=== PATIENT | female | born 1985 | race Caucasian/White ===

== ENCOUNTER → 2023-03-24 | Outpatient (CLI) | payer MEDICAID, SELFPAY ==
--- OUTSIDE RECORDS SUMMARY | 2023-03-24 07:01 | XMS RPT_ITS | CCD ---
Author Name Unknown Address [address] [place] [address] Organization [facility] Care Team Providers Care Senior Interactive Developer Name Role Phone IMCA Unavailable Unavailable JAMESON HEADSTART TEACHER-FAX MACHINE REPAIRER, PEYTON Goel Primary Care Physicia n Jameson PETERSENN - GO GO DANCER, Peyton Primary Care Provider Jameson PETERSENN - GO GO DANCER, Peyton Primary Care Provider Peyton Barba Primary Care Unavailable PROVIDER, UNKNOWN Referring Unavailable Pozsgay, Saman Attending Unavailable Pozsgay, Saman Attending Unavailable Pozsgay, Saman Referring Unavailable Peyton Barba Primary Care Unavailable PROVIDER, UNKNOWN Referring Unavailable ADDY HIRSCH Attending Unavailable Peyton Barba Primary Care Unavailable PROVIDER, UNKNOWN Referring Unavailable ADDY HIRSCH Attending Unavailable Peyton Barba Primary Care Unavailable PROVIDER, UNKNOWN Referring Unavailable ADDY HIRSCH Attending Unavailable ADDY HIRSCH Attending Unavailable PROVIDER, UNKNOWN Referring Unavailable Peyton Barba Primary Care Provider [phone] Maritza Flaherty RN Unavailable Unavailab le Pozsgay DO, Saman Unavailable Peyton Barba Primary Care Provider Maritza Flaherty RN Unavailable Unavailab le Pozsgay DO, Saman Unavailable POZSGAY, SAMAN Attending Unavailable PEYTON BARBA Primary Care Unavailable ADDY HIRSCH Attending Unavailable PEYTON BARBA Primary Care Unavailable POZSGAY, SAMAN Attending Unavailable PEYTON BARBA Primary Care Unavailable SANDIE MONDRAGON Attending Unavailable AYAKA KIRBY Attending Unavailable PEYTON BARBA Primary Care Unavailable POZSGAY, SAMAN Admitting Unavailable POZSGAY, SAMAN Attending Unavailable PEYTON BARBA Primary Care Unavailable HASSINGER, AYAKA Attending Unavailable JAMESON, PEYTON Primary Care Unavailable HASSINGER, AYAKA Attending Unavailable JAMESON, PEYTON Primary Care Unavailable JOYCELYN, ADDY Attending Unavailable JAMESON, PEYTON Primary Care Unavailable JAMESON, PEYTON Attending Unavailable JAMESON, PEYTON Referring Unavailable JAMESON, PEYTON Primary Care Unavailable BRIDLE, JUAN Attending Unavailable BRIDLE, JUAN Referring Unavailable JAMESON, PEYTON Primary Care Unavailable POZSGAY, SAMAN Referring Unavailable JAMESON, PEYTON Primary Care Unavailable EMPERATRIZ BECKETT Referring Unavailable JAMESON, PEYTON Primary Care Unavailable ALANNA, SANDIE Attending Unavailable ALANNA, SANDIE Referring Unavailable JOYCELYN, ADDY Attending Unavailable JOYCELYN, ADDY Attending Unavailable POZSGAY, SAMAN Attending Unavailable JAMESON, PEYTON Primary Care Unavailable BRIDLE, JUAN Attending Unavailable JAMESON, PEYTON Primary Care Unavailable OVI, FRANCHESKA Admitting Unavailable JAMESON HEADSTART TEACHER-FAX MACHINE REPAIRER, PEYTON D Primary Care Unava ilable JULIETA GONZALEZ, WINNIE Consulting Unavailable MORALES GONZALEZ, FRANK Attending Unavailable HUMBERTO GONZALEZ, ATIYA Consulting Unavailable MARIA ELENA HARE MD Consulting U navailable PEYTON BARBA FAX MACHINE REPAIRER Consulting Unavailable BRIDLE, JUAN R Admitting Unavailable BRIDLE, JUAN R Primary Care Unavailable BRIDLE, JUAN R Attending Unavailable PROVIDER, UNKNOWN Consulting Unavailable PROVIDER, UNKNOWN Consulting Unavailable PEYTON BARBA FAX MACHINE REPAIRER Consulting Unavailable CALDERA, ALEXEI Primary Care Unavailable CALDERA, ALEXEI Admitting Unavailable CALDERA, ALEXEI Attending Unavailable PROVIDER, UNKNOWN Consulting Unavailable PROVIDER, UNKNOWN Consulting Unavailable JAMESONPEYTON MORGAN FAX MACHINE REPAIRER Consulting Unavailable CALDERA, ALEXEI Primary Care Unavailable CALDERA, ALEXEI Admitting Unavailable CALDERA, ALEXEI Attending Unavailable PROVIDER, UNKNOWN Consulting Unavailable PROVIDER, UNKNOWN Consulting Unavailable JAMESONPEYTON MORGAN FAX MACHINE REPAIRER Consulting Unavailable PEYTON BARBA FAX MACHINE REPAIRER Primary Care Unavailable JAMESONPEYTON MORGAN FAX MACHINE REPAIRER Admitting Unavailable PEYTON BARBA FAX MACHINE REPAIRER Attending Unavailable PROVIDER, UNKNOWN Consulting Unavailable PROVIDER, UNKNOWN Consulting Unavailable JAMESONPEYTON MORGAN FAX MACHINE REPAIRER Consulting Unavailable JAMESONPEYTON MORGAN FAX MACHINE REPAIRER Primary Care Unavailable JAMESONPEYTON MORGAN FAX MACHINE REPAIRER Admitting Unavailable JAMESONPEYTON MORGAN FAX MACHINE REPAIRER Attending Unavailable PROVIDER, UNKNOWN Consulting Unavailable PROVIDER, UNKNOWN Consulting Unavailable JAMESONPEYTON MORGAN FAX MACHINE REPAIRER Consulting Unavailable BRIDLE, JUAN R Admitting Unavailable BRIDLE, JUAN R Attending Unavailable BRIDLE, JUAN R Primary Care Unavailable PROVIDER, UNKNOWN Consulting Unavailable PROVIDER, UNKNOWN Consulting Unavailable PEYTON BARBA FAX MACHINE REPAIRER Consulting Unavailable CALDERA, ALEXEI Primary Care Unavailable CALDERA, ALEXEI Admitting Unavailable CALDERA, ALEXEI Attending Unavailable PROVIDER, UNKNOWN Consulting Unavailable PROVIDER, UNKNOWN Consulting Unavailable JAMESONPEYTON MORGAN FAX MACHINE REPAIRER Consulting Unavailable CALDERA, ALEXEI Primary Care Unavailable CALDERA, ALEXEI Admitting Unavailable CALDERA, ALEXEI Attending Unavailable PROVIDER, UNKNOWN Consulting Unavailable PROVIDER, UNKNOWN Consulting Unavailable PEYTON BARBA CNP Consulting Unavailable BETO, SHAMA DO Admitting Unavailable BETO, SHAMA DO Attending Unavailable PEYTON BARBA FAX MACHINE REPAIRER Referring Unavailable BETOSHAMA RICHARDS DO Primary Care Unavailable PROVIDER, UNKNOWN Consulting Unavailable PROVIDER, UNKNOWN Consulting Unavailable JAMESONPEYTON MORGAN CNP Primary Care Unavailable JAMESONPEYTON MORGAN CNP Consulting Unavailable PEYTON BARBA CNP Attending Unavailable JAMESON, PEYTON DOUGHERTY Admitting Unavailable PROVIDER, UNKNOWN Consulting Unavailable PROVIDER, UNKNOWN Consulting Unavailable PEYTON BARBA CNP Consulting Unavailable PEYTON BARBA CNP Primary Care Unavailable JAMESON, PEYTON DOUGHERTY Admitting Unavailable PEYTON BARBA CNP Attending Unavailable PROVIDER, UNKNOWN Consulting Unavailable PROVIDER, UNKNOWN Consulting Unavailable PEYTON BARBA CNP Consulting Unavailable CALDERA, ALEXEI Primary Care Unavailable CALDERA, ALEXEI Admitting Unavailable CALDERA, ALEXEI Attending Unavailable PROVIDER, UNKNOWN Consulting Unavailable PROVIDER, UNKNOWN Consulting Unavailable JAMESONPEYTON MORGAN CNP Consulting Unavailable VELEZ, CARLOTTA Admitting Unavailable VELEZ, CARLOTTA Attending Unavailable VELEZ, CARLOTTA Primary Care Unavailable PROVIDER, UNKNOWN Consulting Unavailable PROVIDER, UNKNOWN Consulting Unavailable PEYTON BARBA CNP Consulting Unavailable POZSGAY, SAMAN DO Admitting Unavailable POZSGAY, SAMAN DO Attending Unavailable POZSGAY, SAMAN DO Primary Care Unavailable PROVIDER, UNKNOWN Consulting Unavailable PROVIDER, UNKNOWN Consulting Unavailable PEYTON BARBA CNP Attending Unavailable PEYTON BARBA CNP Primary Care Unavailable JAMESONPEYTON MORGAN CNP Admitting Unavailable PEYTON BARBA CNP Consulting Unavailable PROVIDER, UNKNOWN Consulting Unavailable PROVIDER, UNKNOWN Consulting Unavailable PEYTON BARBA CNP Primary Care Unavailable PEYTON BARBA CNP Admitting Unavailable PEYTON BARBA CNP Consulting Unavailable PEYTON BARBA CNP Attending Unavailable PROVIDER, UNKNOWN Consulting Unavailable PROVIDER, UNKNOWN Consulting Unavailable PEYTON BARBA CNP Primary Care Unavailable PEYTON BARBA CNP Consulting Unavailable PEYTON BARBA CNP Attending Unavailable PEYTON BARBA CNP Admitting Unavailable PROVIDER, UNKNOWN Consulting Unavailable PROVIDER, UNKNOWN Consulting Unavailable JAMESONPEYTON MORGAN CNP Primary Care Unavailable JAMESONPEYTON MORGAN CNP Admitting Unavailable PEYTON BARBA CNP Consulting Unavailable PEYTON BARBA CNP Attending Unavailable PROVIDER, UNKNOWN Consulting Unavailable PROVIDER, UNKNOWN Consulting Unavailable PEYTON BARBA CNP Consulting Unavailable BRIDLE, JUAN R Admitting Unavailable BRIDLE, JUAN R Primary Care Unavailable BRIDLE, JUAN R Attending Unavailable PROVIDER, UNKNOWN Consulting Unavailable PROVIDER, UNKNOWN Consulting Unavailable PEYTON BARBA CNP Consulting Unavailable CALDERA, ALEXEI Primary Care Unavailable CALDERA, ALEXEI Admitting Unavailable CALDERA, ALEXEI Attending Unavailable PROVIDER, UNKNOWN Consulting Unavailable PROVIDER, UNKNOWN Consulting Unavailable PEYTON BARBA CNP Primary Care Unavailable PEYTON BARBA CNP Consulting Unavailable PEYTON BARBA CNP Attending Unavailable PEYTON BARBA CNP Admitting Unavailable PROVIDER, UNKNOWN Consulting Unavailable PROVIDER, UNKNOWN Consulting Unavailable PEYTON BARBA CNP Consulting Unavailable SAMAYOA, LAZARO C Attending Unavailable SAMAYOA, LAZARO C Admitting Unavailable SAMAYOA, LAZARO C Primary Care Unavailable PROVIDER, UNKNOWN Consulting Unavailable PROVIDER, UNKNOWN Consulting Unavailable PEYTON BARBA CNP Consulting Unavailable DEE, ELAINE DO Primary Care Unavailable DEE, ELAINE DO Admitting Unavailable DEE, ELAINE DO Attending Unavailable PEYTON BARBA CNP Referring Unavailable PROVIDER, UNKNOWN Consulting Unavailable PROVIDER, UNKNOWN Consulting Unavailable PEYTON BARBA CNP Primary Care Unavailable PEYTON BARBA CNP Attending Unavailable PEYTON BARBA CNP Admitting Unavailable PEYTON BARBA CNP Consulting Unavailable PROVIDER, UNKNOWN Consulting Unavailable PROVIDER, UNKNOWN Consulting Unavailable PEYTON BARBA CNP Consulting Unavailable DEE, ELAINE DO Admitting Unavailable DEE, ELAINE DO Attending Unavailable DEE, ELAINE DO Primary Care Unavailable PROVIDER, UNKNOWN Consulting Unavailable PROVIDER, UNKNOWN Consulting Unavailable PEYTON BARBA CNP Consulting Unavailable BRIDLE, JUAN R Admitting Unavailable BRIDLE, JUAN R Primary Care Unavailable BRIDLE, JUAN R Attending Unavailable PROVIDER, UNKNOWN Consulting Unavailable PROVIDER, UNKNOWN Consulting Unavailable Allergies Allergy Classification Reported Allergen(s) Allergy Type Date of Onset Reaction(s) Facility (18 sources) acetaminophen / codeine; Translations: [ACETAMINOPHEN-CO DEINE] Drug Allergy 11-10-19 14 Hives, Rash, Swelling [facility] Repository (13 sources) Codeine; Translations: [codeine] Drug Allergy 01-07-20 22 Other, Nausea And Vomiting [facility] (3 sources) [place]; Translations: [STRAWBERRIES] Drug allergy [facility] (3 sources) Acetaminophen Drug Allergy 10-07-19 22 Anaphylaxis, Shortness Of Breath [facility] Work Phone: (3 sources) Ketorolac Drug Allergy 10-07-19 22 Anaphylaxis, Shortness Of Breath [facility] Work Phone: (17 sources) Morphine Drug Allergy 10-07-19 22 Other (See Comments), Other [facility] Work Phone: (3 sources) strawberry allergenic extract Drug Allergy 10-07-19 22 Hives, Shortness Of Breath [facility] Work Phone: (17 sources) Coconut Flavor Propensity to adverse reactions to drug 10-07-19 22 Shortness Of Breath [facility] (8 sources) Acetaminophen Drug Allergy 10-07-19 22 Anaphylaxis, Shortness of breath, Other [facility] (14 sources) Acetaminophen / pamabrom Drug Allergy 01-07-20 22 [facility] (14 sources) Ketorolac trometamol Propensity to adverse reactions 10-07-19 22 Anaphylaxis, Shortness of breath [facility] (14 sources) [place] Propensity to adverse reactions 10-07-19 22 Swelling, Hives, Shortness of breath [facility] (14 sources) Coconut Fatty Acids Propensity to adverse reactions 01-07-20 22 Swelling [facility] (11 sources) Ibuprofen Drug Allergy 05-15-19 23 Other [facility] (1 source) Aspirin / Caffeine; Translations: [aspirin-caffeine ] Drug Allergy numbness [facility] (1 source) Ketorolac; Translations: [ketorolac] Drug Allergy migrains [facility] (1 source) Acetaminophen / Codeine Drug Allergy [facility] Repository (1 source) Coconut Oil; Translations: [COCONUT OIL] Drug Allergy [facility] Repository (2 sources) Ketorolac Drug Allergy [facility] Repository (1 source) Morphine Drug Allergy [facility] Repository (1 source) MIDOL Drug allergy (disorder) [facility] Repository (1 source) MIDOL CRAMP FORMULA Drug allergy (disorder) [facility] Repository (1 source) 05/17/17 (+) MRSA SCREEN; Translations: [05/17/17 (+) MRSA SCREEN] Propensity to adverse reactions (disorder) [facility] Repository (1 source) 04/14/2018 (-) MRSA SCREEN NARES; Translations: [04/14/2018 (-) MRSA SCREEN NARES] Propensity to adverse reactions (disorder) [facility] Repository Medications Current Medications Medication Drug Class(es) Dates Sig (Normalized) Sig (Original) acetaminophen 325 mg / HYDROcodone bitartrate 5 mg oral tablet (11 sources) Opioid Agonist Start: 09-06-2021 take 1 tablet by mouth every six hours as needed HYDROcodone-acet aminophen ([place]) 5-325 MG tablet Take 1 tablet by mouth every 6 hours as needed. 0 09/06/2021 Active albuterol MDI (90 mcg/inh) [facility] free inhalation aerosol (1 source) Start: 03-10-2022 take 1 puff(s) by mouth every four to six hours as needed albuterol MDI (90 mcg/inh) [facility] free inhalation aerosol INHALE 1 PUFF BY MOUTH EVERY 4 TO 6 HOURS NEEDED Start Date: 03/10/22 Status: Ordered aspirin 81 mg chewable tablet (16 sources) Platelet Aggregation Inhibitor, Nonsteroidal Anti-inflammatory Drug Start: 10-22-2021 take 1 tablet by mouth once daily EQ Aspirin Low Dose 81 MG chewable tablet CHEW AND SWALLOW 1 TABLET BY MOUTH ONCE DAILY 0 10/22/2021 Active Completed/Discontinued Medications Medication Drug Class(es) Dates Sig (Normalized) Sig (Original) acetaminophen 325 mg / oxyCODONE hydrochloride 5 mg oral tablet (11 sources) Opioid Agonist Start: 05-20-2022 End: 05-28-2022 take 1 tablet by mouth every six hours as needed for pain oxyCODONE-acetami nophen (Percocet) 5-325 MG tablet Indications: Morbid obesity with BMI of 50.0-59.9, adult (HCC) Take 1 tablet by mouth every 6 hours as needed for severe pain (7-10) for up to 7 days. 28 tablet 0 05/20/2022 05/28/2022 Problems Active Problems Problem Classification Problem Date Documented Da te Episodic/Chronic Abdominal pain (1 source) Unspecified abdominal pain; Translations: [Unspecified abdominal pain] Onset: 3 Episodic Administrative/social admission (5 sources) Patient encounter status; Translations: [Encounter for blood-alcohol and blood-drug test] Episodic Allergic reactions (5 sources) Allergy status to analgesic agent status; Translations: [Allergy status to narcotic agent status] Onset: 3 Episodic Asthma (3 sources) Mild intermittent asthma, uncomplicated; Translations: [Unspecified asthma, uncomplicated] Onset: 2 Chronic Cardiac dysrhythmias (4 sources) Tachycardia; Translations: [Tachycardia, unspecified] Onset: 3 Episodic Congestive heart failure; nonhypertensive (1 source) Heart failure, unspecified; Translations: [Heart failure, unspecified] Onset: 3 Chronic Coronary atherosclerosis and other heart disease (4 sources) Coronary arteriosclerosis; Translations: [Atherosclerotic heart disease of [place] coronary artery without angina pectoris] Onset: 3 10-23-2020 Chronic Coronary atherosclerosis and other heart disease (2 sources) Coronary angioplasty status; Translations: [Presence of coronary angioplasty implant and graft] Onset: 3 Episodic Diabetes mellitus with complications (14 sources) Hyperglycemia due to type 2 diabetes mellitus; Translations: [Type 2 diabetes mellitus with hyperglycemia] Onset: 3 Chronic Diabetes mellitus without complication (20 sources) Type 2 diabetes mellitus; Translations: [Type 2 diabetes mellitus without complication] Onset: 2 03-27-2021 Chronic Disorders of lipid metabolism (20 sources) Hyperlipidemia; Translations: [Hyperlipidemia, unspecified] Onset: 3 10-23-2020 Chronic Esophageal disorders (6 sources) Gastroesophageal reflux disease without esophagitis; Translations: [Gastro-esophageal reflux disease without esophagitis] Onset: 3 Chronic Essential hypertension (19 sources) Essential hypertension; Translations: [Essential (primary) hypertension] Onset: 3 05-14-2022 Chronic Fever of unknown origin (3 sources) Fever, unspecified; Translations: [Fever, unspecified] Onset: 3 Episodic Genitourinary symptoms and ill-defined conditions (4 sources) Frequency of micturition; Translations: [Dysuria] Onset: 3 Episodic Hypertension with complications and secondary hypertension (1 source) Hypertensive heart disease with heart failure; Translations: [Hypertensive heart disease with heart failure] Onset: 3 Chronic Miscellaneous mental health disorders (5 sources) Eating disorder, unspecified; Translations: [Binge eating disorder] Onset: 3 Chronic Mood disorders (2 sources) Major depressive disorder, recurrent, moderate; Translations: [Major depressive disorder, recurrent, moderate (HCC)] Onset: 3 Chronic Other aftercare (1 source) USP (current) use of oral hypoglycemic drugs; Translations: [marine oil terminal superintendent (current) use of oral hypoglycemic drugs] Onset: 3 Episodic Other aftercare (1 source) USP (current) use of insulin; Translations: [marine oil terminal superintendent (current) use of insulin] Onset: 3 Episodic Other aftercare (1 source) Other long-term (current) drug therapy; Translations: [Other long-term (current) drug therapy] Onset: 3 Episodic Other bone disease and musculoskeletal deformities (1 source) Costal chondritis 06-10-2021 Episodic Other connective tissue disease (3 sources) Bilateral calf pain; Translations: [Pain in right lower leg] Episodic Other gastrointestinal disorders (1 source) Bariatric surgery status; Translations: [Bariatric surgery status] Onset: 3 Episodic Other lower respiratory disease (1 source) Dyspnea 06-10-2021 Episodic Other nervous system disorders (1 source) Other chronic pain; Translations: [Other chronic pain] Onset: 3 Chronic Other nutritional; endocrine; and metabolic disorders (20 sources) Morbid obesity; Translations: [Morbid (severe) obesity due to excess calories] Onset: 2 05-12-2021 Chronic Other nutritional; endocrine; and metabolic disorders (5 sources) Morbid (severe) obesity due to excess calories; Translations: [Morbid (severe) obesity due to excess calories] Onset: 2 Chronic Other nutritional; endocrine; and metabolic disorders (4 sources) Body mass index (BMI) 50.0-59.9, adult; Translations: [Body mass index [BMI] 50.0-59.9, adult] Onset: 2 Chronic Other nutritional; endocrine; and metabolic disorders (11 sources) Body mass index 40+ - severely obese; Translations: [Morbid (severe) obesity due to excess calories] Onset: 3 Chronic Other nutritional; endocrine; and metabolic disorders (2 sources) Body mass index (BMI) 45.0-49.9, adult; Translations: [Body mass index (BMI) 45.0-49.9, adult ([facility])] Onset: 3 Chronic Other nutritional; endocrine; and metabolic disorders (3 sources) Obesity, unspecified; Translations: [Obesity, unspecified] Onset: 3 Chronic Other nutritional; endocrine; and metabolic disorders (2 sources) Overweight 10-23-2020 Episodic Other screening for suspected conditions (not mental disorders or infectious disease) (2 sources) Increased glucose level 03-27-2021 Episodic Residual codes; unclassified (11 sources) Obstructive sleep apnea syndrome; Translations: [Obstructive sleep apnea (adult) (pediatric)] Onset: 3 05-14-2022 Chronic Residual codes; unclassified (2 sources) Obstructive sleep apnea (adult) (pediatric); Translations: [Obstructive sleep apnea (adult) (pediatric)] Onset: 3 Chronic Residual codes; unclassified (1 source) Acquired absence of other specified parts of digestive tract; Translations: [Acquired absence of other specified parts of digestive tract] Onset: 3 Episodic Screening and history of mental health and substance abuse codes (5 sources) Tobacco use and exposure - finding; Translations: [Personal history of nicotine dependence] Episodic Substance-related disorders (2 sources) Nicotine dependence, unspecified, uncomplicated; Translations: [Nicotine dependence, cigarettes, uncomplicated] Onset: 3 Chronic Syncope (1 source) Vasovagal symptom 10-28-2021 Episodic Unclassified (2 sources) Weight Management; Translations: [Weight Management] Onset: 2 Unclassified (1 source) PERSONAL HISTORY OF COVID-19; Translations: [PERSONAL HISTORY OF COVID-19] Onset: 3 Past or Other Problems Problem Classification Problem Date Documented Da te Episodic/Chronic Abdominal hernia (14 sources) Incisional hernia; Translations: [Incisional hernia without obstruction or gangrene] Onset: 06-24-2009 01-06-2022 Episodic Coma; stupor; and brain damage (2 sources) Somnolence; Translations: [Somnolence] Onset: 04-24-2022 Episodic Mycoses (3 sources) Candidiasis of mouth; Translations: [Candidal stomatitis] Onset: 05-25-2022 Episodic Nonspecific chest pain (3 sources) Chest pain, unspecified; Translations: [Chest pain, unspecified] Onset: 08-27-2022 Episodic Nutritional deficiencies (6 sources) Deficiency of multiple nutrient elements; Translations: [Deficiency of multiple nutrient elements] Onset: 05-25-2022 Episodic Other aftercare (1 source) marine oil terminal superintendent (current) use of anticoagulants; Translations: [USP (current) use of anticoagulants] Onset: 08-12-2022 Episodic Other connective tissue disease (2 sources) Pain in right lower leg; Translations: [Pain in right lower leg] Onset: 05-25-2022 Episodic Other connective tissue disease (5 sources) Pain in left lower leg; Translations: [Pain in left lower leg] Onset: 05-25-2022 Episodic Other connective tissue disease (3 sources) Pain in left leg; Translations: [Pain in left leg] Onset: 08-13-2022 Episodic Other gastrointestinal disorders (2 sources) Heartburn; Translations: [Heartburn] Onset: 04-24-2022 Episodic Other nutritional; endocrine; and metabolic disorders (2 sources) Weight loss; Translations: [Weight Loss] Onset: 04-24-2022 Episodic Pulmonary heart disease (17 sources) H/O: pulmonary embolus; Translations: [Personal history of pulmonary embolism] Onset: 10-06-2021 Resolved: 05-18-2022 10-06-2021 Episodic Residual codes; unclassified (11 sources) Difficult venous access; Translations: [Other specified health status] Onset: 05-14-2022 05-14-2022 Episodic Residual codes; unclassified (1 source) Acquired absence of other genital organ(s); Translations: [Acquired absence of other genital organ(s)] Onset: 08-27-2022 Episodic Spondylosis; intervertebral disc disorders; other back problems (2 sources) Dorsalgia, unspecified; Translations: [Dorsalgia, unspecified] Onset: 04-24-2022 Episodic Results Test Name Value Interpretation Reference Range Facil ity Vital Signs Date Time Vital Sign Value Performing Clinician Freddy rivera 08-29-2022 11:090400 Body temperature 97.7 [degF] DR FRANCHESKA DIOR MD [address] [place] [address] 08-29-2022 11:09-0400 Diastolic Blood Pressure Non-Invasive [address] FRANCHESKA DIOR MD [address] [place] [address] 08-29-2022 11:09-0400 Heart rate 55 /min DR FRANCHESKA DIOR MD [address] [place] [address] 08-29-2022 11:09-0400 Reason For Taking VItal Signs DR FARNCHESKA DIOR MD [address] [place] [address] 08-29-2022 11:09-0400 Respiratory rate 18 /min DR FRANCHESKA DIOR MD [address] [place] [address] 08-29-2022 11:09-0400 Systolic Blood Pressure Non-Invasive [address] FRANCHESKA DIOR MD [address] [place] [address] 08-29-2022 07:57-0400 Heart rate 66 /min DR FRANCHESKA DIOR MD [address] [place] [address] 08-29-2022 06:42-0400 Heart rate 61 /min DR FRANCHESKA DIOR MD [address] [place] [address] 08-29-2022 06:23-0400 Body temperature 97.88 [degF] DR FRANCHESKA DIOR MD [address] [place] [address] 08-29-2022 06:23-0400 Diastolic Blood Pressure Non-Invasive [address] FRANCHESKA DIOR MD [address] [place] [address] 08-29-2022 06:23-0400 Heart rate 69 /min DR FRANCHESKA DIOR MD [address] [place] [place] [address] 08-29-2022 06:23-0400 Reason For Taking VItal Signs DR FRANCHESKA DIOR MD [address] [place] [address] 08-29-2022 06:23-0400 Respiratory rate 18 /min DR FRANCHESKA DIOR MD [address] [place] [address] 08-29-2022 06:23-0400 Systolic Blood Pressure Non-Invasive [address] FRANCHESKA DIOR MD [address] [place] [address] 08-29-2022 02:16-0400 Body temperature 97.52 [degF] DR FRANCHESKA DIOR MD [address] [place] [address] 08-29-2022 02:16-0400 Diastolic Blood Pressure Non-Invasive [address] FRANCHESKA DIOR MD [address] [place] [address] 08-29-2022 02:16-0400 Heart rate 59 /min DR FRANCHESKA DOIR MD [address] [place] [address] 08-29-2022 02:16-0400 Reason For Taking VItal Signs DR FRANCHESKA DIOR MD [address] [place] [address] 08-29-2022 02:16-0400 Respiratory rate 18 /min DR FRANCHESKA DIOR MD [address] [place] [address] 08-29-2022 02:16-0400 Systolic Blood Pressure Non-Invasive [address] FRANCHESKA DIOR MD [address] [place] [address] 08-28-2022 22:48-0400 Heart rate 66 /min DR FRANCHESKA DIOR MD [address] [place] [address] 08-28-2022 21:33-0400 Heart rate 66 /min DR FRANCHESKA DIOR MD [address] [place] [address] 08-28-2022 20:26-0400 Heart rate 56 /min DR FRANCHESKA DIOR MD [address] [place] [address] 08-28-2022 18:15-0400 Mean blood pressure 84 mm[Hg] DR FRANCHESKA DIOR MD [address] [place] [address] 08-28-2022 18:00-0400 Mean blood pressure 80 mm[Hg] DR FRANCHESKA DIOR MD [address] [place] [address] 08-28-2022 17:45-0400 Mean blood pressure 84 mm[Hg] DR FRANCHESKA DIOR MD [address] [place] [address] 08-28-2022 17:29-0400 Blood Pressure Cuff Size DR FRANCHESKA DIOR MD [address] [place] [address] 06-30-2023 17:29-[address] FRANCHESKA DIOR MD [facility] 08-28-2022 17:29-[address] FRANCHESKA DIOR MD [address] [place] [address] 08-28-2022 15:16-04[address] Blood Pressure Cuff Size DR FRANCHESKA DIOR MD [address] [place] [address] 08-28-2022 15:16-[address] FRANCHESKA DIOR MD [address] [place] [address] 08-28-2022 15:16-[address] FRANCHESKA DIOR MD [address] [place] [address] 08-28-2022 09:02-0400 Heart rate 65 /min DR FRANCHESKA DIOR MD [address] [place] [address] 08-27-2022 23:23-0400 Body height 162.[address] FRANCHESKA DIOR MD [address] [place] [address] 08-27-2022 23:23-0400 Body weight 118.[address] FRANCHESKA DIOR MD [address] [place] [address] 08-27-2022 23:23-0400 Body weight 44.71 kg/m2 DR FRANCHESKA DIOR MD [address] [place] [address] 06-22-2022 09:35-0400 Body height 162.6 cm Saman Boothmoisés Work Phone: [facility] Encounters Encounter Date Encounter Type Care Provider Facility Start: 03-22-2023 ambulatory PEYTON FAX MACHINE REPAIRER [facility] Start: 03-03-2023 ambulatory PEYTON FAX MACHINE REPAIRER [facility] Start: 03-03-2023 End: 03-03-2023 ambulatory PEYTON FAX MACHINE REPAIRER [facility] Start: 02-09-2023 End: 02-09-2023 ambulatory PEYTON FAX MACHINE REPAIRER [facility] Start: 02-09-2023 End: 02-09-2023 ambulatory PEYTON FAX MACHINE REPAIRER [facility] Start: 01-18-2023 End: 01-18-2023 ambulatory PEYTON DOUGHERTY [facility] Start: 01-07-2023 ambulatory PEYTON DOUGHERTY [facility] Start: 01-07-2023 End: 01-07-2023 Emergency department patient visit PEYTON DOUGHERTY [facility] Start: 11-03-2022 End: 11-03-2022 ambulatory PEYTON DOUGHERTY [facility] Start: 08-28-2022 End: 08-29-2022 ambulatory FRANCHESKA DIOR Facility: Start: 08-27-2022 End: 08-29-[address] FRANCHESKA DIOR [facility] Start: 08-27-2022 End: 08-28-2022 Emergency department patient visit PEYTON DOUGHERTY [facility] Start: 08-24-2022 End: 08-24-2022 ambulatory PEYTON DOUGHERTY [facility] Start: 08-21-2022 ambulatory PEYTON DOUGHERTY [facility] Start: 08-21-2022 Encounter for preprocedural laboratory examination PEYTON DOUGHERTY [facility] Start: 08-20-2022 End: 08-20-2022 ambulatory PEYTON DOUGHERTY [facility] Start: 08-13-2022 End: 08-13-2022 ambulatory PEYTON DOUGHERTY [facility] Start: 08-12-2022 End: 08-12-2022 Emergency department patient visit PEYTON DOUGHERTY [facility] Start: 07-17-2022 End: 07-17-2022 ambulatory PEYTON DOUGHERTY [facility] Start: 06-22-2022 End: 06-22-2022 ambulatory SAMAN RIVAS [facility] Start: 06-22-2022 End: 06-22-2022 Postop follow up visit related to original px Saman Rivas DO Work Phone: [facility] [place] Procedures Date Procedure Procedure Detail Performing Clinician Start: 02-09-2023 Urinalysis PEYTON LOVE Plan of Treatment Date Care Activity Detail Author Start: 2036 Zoster Vaccines (1 of 2) Zoster Vaccines (1 of 2) [facility] Start: 04-24-2023 Hemoglobin A1c measurement Diabetes: Hemoglobin A1C [facility] Start: 04-24-2023 Lipid panel Lipid Panel [facility] Start: 04-24-2023 Urine screening for protein Diabetes: Urine Protein Screening [facility] Start: 04-15-2023 Depression Screening Depression Screening [facility] Start: 12-11-2022 End: 12-11-2022 Patient encounter procedure 12/11/2022 2:15 PM EDT Office Visit [facility] Management [address] [address] Nidia Monae, GO GO DANCER [address] [place], [place] [id number] [facility] [place] Start: 12-11-2022 Hemoglobin A1c measurement A1C test (Diabetic or Prediabetic) [facility] Start: 10-30-2022 Influenza vaccination [facility] Start: 10-30-2022 End: 10-30-2022 Patient encounter procedure 10/30/2022 1:00 PM EDT Office Visit [facility] Management [address] [address] Nidia Monae, GO GO DANCER [address] [facility] [place], [place] [id number] [facility] [place] Start: 10-01-2022 End: 10-01-2022 Patient encounter procedure 10/01/2022 1:00 PM EDT Office Visit [facility] Management [address] [address] Nidia Monae, GO GO DANCER [address] [place], [place] [id number] [facility] [place] Start: 08-25-2022 End: 08-25-2022 Patient encounter procedure 08/25/2022 Office Visit Bariatrics Juan Hdz, HEADSTART TEACHER - FAX MACHINE REPAIRER [address] [place] [address] [facility] [place] Start: 08-22-2022 End: 06-23-2023 CBC panel - Blood by Automated count CBC Lab Routine Deficiency of multiple nutrient elements Hyperlipidemia, unspecified hyperlipidemia type Type 2 diabetes mellitus with diabetic neuropathy, unspecified whether long line teamster insulin use (HCC) Primary hypertension Morbid obesity with BMI of 45.0-49.9, adult (HCC) Expected: 08/22/2022 (Approximate), Expires: 06/23/2023 [facility] Payers Date Payer Category Payer Medicaid [id number] 2021 Medicaid [id number] 2011 Medicaid [id number] 1985 Unknown [id number] 2.16. [id number] 1986 Unknown [id number] 2.16. 840.1.535924.3.579.2.668 1986 Unknown [id number] 2.16. 840.1.072131.3.579.2.8 1986 Unknown [id number] 2.16. 840.1.320208.3.579.2.668 1986 Unknown [id number] 2.16. 840.1.701439.3.579.2.668 1986 Unknown [id number] 2.16. 840.1.765385.3.579.2.668 1986 Unknown [id number] 2.16.8 40.1.790776.3.579.2.627 1986 Unknown [id number] 2.16.8 40.1.150389.3.579.2.651 1986 Unknown [id number] 2.16.8 40.1.611645.3.579.2.65 1986 Unknown [id number] 2.16.8 40.1.654800.3.579.2.651 1986 Unknown [id number] 2.16.8 40.1.188824.3.579.2. 1986 Unknown [id number] 2.16.8 40.1.245882.3.579.2.65 1986 Unknown [id number] 2.16.8 40.1.822174.3.579.2. 1986 Unknown [id number] 2.16.8 40.1.133451.3.579.2. 1986 Unknown [id number] 2.16.8 40.1.699345.3.579.2. 1986 Unknown [id number] 2.16.8 40.1.960869.3.579.2. 1986 Unknown [id number] 2.16.84 0.1.465183.3.579.2. 1986 Unknown [id number] 2.16.84 0.1.951796.3.579.2. 1986 Unknown [id number] 2.16.8 40.1.201715.3.579.2. 1986 Unknown [id number] 2.16.8 40.1.356995.3.579.2. 1986 Unknown [id number] 2.16.8 40.1.103990.3.579.2. 1986 Unknown [id number] 2.16.8 40.1.149842.3.579.2. 1986 Unknown [id number] 2.16.8 40.1.606600.3.579.2. 1986 Unknown [id number] 2.16.84 0.1.781847.3.579.2. 1986 Unknown [id number] 2.16.84 0.1.287316.3.579.2.651 1986 Unknown [id number] 2.16.84 0.1.585401.3.579.2.651 1986 Unknown [id number] 2.16.84 0.1.694177.3.579.2.651 1986 Unknown [id number] 2.16.84 0.1.738553.3.579.2.651 1986 Unknown [id number] 2.16.84 0.1.692801.3.579.2.651 1986 Unknown [id number] 2.16.84 0.1.125475.3.579.2.651 Self-pay Unknown Social History Date Type Detail Facility Start: 10-23-2020 Heavy tobacco smoker (finding) [facility] Sex Assigned At [facility] Start: 03-01-1999 End: 01-06-2022 Tobacco smoking status NCIS Smokes tobacco daily [employer] Phone: Start: 03-01-1999 End: 03-01-2022 History of tobacco use Cigarette Smoker [employer]: Start: 10-06-2021 End: 04-15-2022 Cigarettes smoked current (pack per day) - Reported 0.5 [facility] Start: 10-06-2021 End: 05-14-2022 Tobacco use and exposure Smokeless tobacco non-user [employer]: Start: 10-07-2021 End: 06-23-2022 Alcohol intake Ex-drinker (finding) [employer]: Start: 1985 Sex Assigned At Not on file [facility] [employer] Work Phone: Start: 04-14-2022 End: 06-22-2022 Exposure to SARS-CoV-2 (event) Not sure [facility] Start: 05-14-2022 Tobacco smoking stat us NCIS Ex-smoker [facility] Start: 03-01-1999 End: 03-01-2022 History of tobacco use Current smoker [facility] Start: 05-20-2022 History SDOH Alcohol Frequency 1 [facility] Start: 05-20-2022 History SDOH Alcohol Std Drinks 0 [facility] Start: 05-20-2022 History SDOH IPV Fear 2 S [facility] Tobacco Nicotine Use: Qu it March 2022. [facility] Start: 04-15-2022 End: 05-20-2022 Humiliation, Afraid, Rape, and Kick questionnaire [HARK] [facility] Within the last year , have you been afraid of your partner or ex-partner? No [facility] How often to you hav e a drink containing alcohol? Never [facility] How many standard dr inks containing alcohol do you have on a typical day? Patient does not drink [facility] Medical Equipment Procedure Code Equipment Code Equipment Origin al Text Equipment Identifier Dates USE TWICE A DAY [id number] Start: 09-15-2021 USE TWICE A DAY [id number] Start: 12-21-2021 Functional Status Date Assessment Result Facility 08-29-2022 Functional Status Room check performed [facility] 08-29-2022 Functional Status [facility] 08-28-2022 Functional Status Hospital bed [facility] 08-28-2022 Functional Status [facility] 08-28-2022 Functional Status [address]ilevel home [facility] 08-28-2022 Functional Status Breakfast Percent 70 [facility] 08-27-2022 Functional Status [facility] Mental Status Date Assessment Result Facility 08-29-2022 Mental Status Oriented x 4 [facility] 08-29-2022 Mental Status [facility] 08-29-2022 Mental Status [facility] Clinical Notes 05-23-2021 to 02-10-2023 Note Date & Type Note Facility 02-10-2023 Note [facility] REPORT NAME ACCOUNT SEX AGE ADMIT DISCHARGE PT MED. RECORD# NUMBER DATE DATE TYPE NITIN [id number] F 37 02/09/2023 02/09/2023 2 MARVIN Alvarez [id number] ROOM: DATE OF : 1985 DICTATING PHYSICIAN: Alexei Caldera [id number] RANDOM URINE SCREEN The patient was seen today on February 09, 2023, for a [id number]-[id number] random urine screen. Apparently she has been out of her medications and did call the clinic about this, but she had her last dose on February 06, 2023, three days ago. We will look for any metabolites of the medication. Dictated By: Alexei Caldera DO 02/09/2023 11:21 JOB #: [id number] Transcribed By: yamile 02/09/2023 11:23 Electronically signed by: E-SIGN: ALEXEI CALDERA 02/10/23 12:54 Page 1 of 1 MARVIN TAVERAS Product Safety Test Engineer Report [facility] 02-10-2023 Note [facility] REPORT NAME ACCOUNT SEX AGE ADMIT DISCHARGE PT MED. RECORD# NUMBER DATE DATE TYPE NITIN [id number] F 37 02/09/2023 02/09/2023 2 MARVIN Alvarez [id number] ROOM: DATE OF : 1985 DICTATING PHYSICIAN: Alexei Caldera HISTORY OF PRESENT ILLNESS: The patient is seen today on February 09, 2023 at the [facility] in [place], [place]. She has 24/7 pain in the abdominal region, and she has had multiple surgeries including gallbladder, weight loss surgery, hernias, and C-sections. Her abdominal pain is probably secondary to adhesions with no other etiology that has been found over the years. The patient was recently admitted to the emergency department for a high fever and UTI and overtook her pain medications. She was also given a prescription from the ER for opioids, but she did not fill because she did not want to violate her contract. She is on the mediations, and realizes that the pain has increased dramatically and is having difficulty even going to work without the pain medications. The patient's other complaints include neuropathic pain in the lower extremity. She gets Lyrica from her family physician, which appears to be beneficial. REVIEW OF SYSTEMS: The remainder of review of systems, intake form, pain questionnaire, nursing assessment, and OARRS report were reviewed. PHYSICAL EXAMINATION: GENERAL APPEARANCE: Reveals a pleasant 37-year-old female who is alert x3. Her cranial nerves are intact. VITAL SIGNS: Her vital signs are stable. She is certainly overweight despite weight loss surgery. She is 252 pounds and 64 inches. Blood pressure 100/65, respirations 18, pulse 72, and afebrile. Her cervical range of motion is preserved. Her thyroid is not enlarged. HEART: Heart is regular. Peripheral pulses are maintained. LUNGS: Lungs are clear in all lung de leon despite her smoking history. At this point, we spent some time discussing smoking cessation, and the fact that it certainly could lead to more cardiopulmonary disease and certainly not helpful when she is overweight as well. EXTREMITIES: Range of motion of the lumbar spine is limited with extension. There is some significant discomfort with lumbar extension, which also leads to abdominal pain as well. Examination of the abdomen proper reveals multiple healed scars. There is a lesion, which is healed, but she states that it sometimes opens. It is probably an old suture. Currently, it is closed. There are no focal deficits. ASSESSMENT: 1. Abdominal pain/21/09. Page 1 of 2 MARVIN TAVERAS Product Safety Test Engineer Report MARVIN TAVERAS : 1985 2. Neuropathic pain lower extremity. 3. Rheumatoid arthritis by history. 4. Obesity. PLAN: At this juncture, we will reevaluate the sedimentation rate and other autoimmune factors including rheumatoid to make sure that she still is positive for this problem. We discussed long acting opioids versus short acting, and we will try low dose Fentanyl patch at 25 mcg per hour and see if it covers her pain 24/7 as the Percocet certainly cannot cover it 24/7, but it has been beneficial. We will trial this for several months, and she can call if any problems or come in sooner if needed. Dictated By: Alexei Caldera DO 02/09/2023 11:24 JOB #: [id number] Transcribed By: am 02/09/2023 11:44 Electronically signed by: E-SIGN: ALEXEI CALDERA 02/10/23 12:54 Page 2 of 2 MARVIN TAVERAS Product Safety Test Engineer Report [facility] 01-13-2023 Note . MICRO - Microbiology PROCEDURE: Blood Culture (bacterial) [*1] SOURCE: Blood BODY SITE: COLLECTED DATE/TIME: 01/07/2023 16:24 EST RECEIVED DATE/TIME: 01/08/2023 16:01 EST START DATE/TIME: 01/08/2023 16:01 EST FREE TEXT SOURCE: FINAL REPORTS Final Report [] Verified Date/Time/Personnel: 01/13/2023 16:59 EST Blood Culture: No Growth at 5 days. PRELIMINARY REPORTS Preliminary Report [] Verified Date/Time/Personnel: 01/08/2023 17:00 EST Culture has been received in lab and is no growth to date. Routine cultures are held for 5 days. Performing Locations *1: This test was performed at: [address], [facility] , [facility] ([place]) 01-13-2023 Note . MICRO - Microbiology PROCEDURE: Blood Culture (bacterial) [*1] SOURCE: Blood BODY SITE: COLLECTED DATE/TIME: 01/07/2023 16:12 EST RECEIVED DATE/TIME: 01/08/2023 16:01 EST START DATE/TIME: 01/08/2023 16:01 EST FREE TEXT SOURCE: FINAL REPORTS Final Report [] Verified Date/Time/Personnel: 01/13/2023 16:59 EST Blood Culture: No Growth at 5 days. PRELIMINARY REPORTS Preliminary Report [] Verified Date/Time/Personnel: 01/08/2023 17:00 EST Culture has been received in lab and is no growth to date. Routine cultures are held for 5 days. Performing Locations *1: This test was performed at: [address], [address] [place] [address] ([place]) 11-03-2022 Note [facility] REPORT NAME ACCOUNT SEX AGE ADMIT DISCHARGE PT MED. RECORD# NUMBER DATE DATE TYPE DANYELLE, [id number] F 37 11/03/2022 11/03/2022 2 MARVIN Alvarez [id number] ROOM: DATE OF : 1985 DICTATING PHYSICIAN: Alexei Caldera PROGRESS NOTE HISTORY OF PRESENT ILLNESS: The patient was seen today on November 03, 2022 at the [facility] in [place], [place]. She has multiple pain complaints, the most prominent currently being abdominal pain. She has had multiple abdominal surgeries including a recent gastric surgery. She has lost 30 plus pounds, and is now down to less than a half of a pack per day of cigarettes, so she is doing well from that standpoint. The patient had a myocardial infarction at age 35, and has two stents. Her father at age 36 from the same. The patient was on [place], and it did nothing for her to increase her functional status, while Percocet one to two pills per day is really quite beneficial with no constipation. She states it allows her to function at a higher level, and she is doing well from that standpoint. REVIEW OF SYSTEMS: The remainder of review of systems, intake form, pain questionnaire, nursing assessment, and OARRS report were reviewed. PHYSICAL EXAMINATION: GENERAL APPEARANCE: Reveals a pleasant 37-year-old female who is alert x3. VITAL SIGNS: She is 246 pounds and 64 inches. Pain level is an 8 out of 10 abdominal. Temperature is 97.4, pulse 80, respirations 20, and blood pressure 100/60. She ambulates in the room without ambulatory aids. Her cervical range of motion is full. Her thyroid is not enlarged. HEART: Heart remains regular. LUNGS: Lungs reveal scattered rhonchi. She had recent pneumonia. ABDOMEN: Soft and not acute and somewhat tender with deep palpation. A well-healed surgical scar is noted. EXTREMITIES: Straight leg raising is noted. Lumbar range of motion is full. ASSESSMENT: 1. Morbid obesity. 2. Rheumatoid arthritis by history. 3. Abdominal pain/chronic. 4. Neuropathic lower extremity pain, etiology unknown. She is treated by her family doctor with [facility]. Page 1 of 2 MARVIN COOK Product Safety Test Engineer Report MARVIN COOK : 1985 PLAN: The patient will continue to try to lose weight, quit smoking, and we will have her followup in 3 months to see how she is doing. She can call if any problems. Dictated By: Alexei Caldera DO 11/03/2022 12:05 JOB #: [id number] Transcribed By: am 11/03/2022 12:37 Electronically signed by: E-SIGN: ALEXEI CALDERA 11/03/22 13:41 Page 2 of 2 MARVIN COOK Product Safety Test Engineer Report [facility] 08-29-2022 Hospital Discharge instructions Patient Education 08/29/2022 14:41:59 Angina, Pqoa-vw-Enee Angina Angina is very bad discomfort or pain in the chest, neck, arm, jaw, or back. The discomfort is caused by a lack of blood in the middle layer of the heart wall (myocardium). What are the causes? This condition is caused by a buildup of fat and cholesterol (plaque) in your arteries (atherosclerosis). This buildup narrows the arteries and makes it hard for blood to flow. What increases the risk? You are more likely to develop this condition if: You have high levels of cholesterol in your blood. You have high blood pressure (hypertension). You have diabetes. You have a family history of heart disease. You are not active, or you do not exercise enough. You feel sad (depressed). You have been treated with high energy rays (radiation) on the left side of your chest. Other risk factors are: Using tobacco. Being very overweight (obese). Eating a diet high in unhealthy fats (saturated fats). Having stress, or being exposed to things that cause stress. Using drugs, such as cocaine. Women have a greater risk for angina if: They are older than 55. They have stopped having their period (are in postmenopause). What are the signs or symptoms? Common symptoms of this condition in both men and women may include: Chest pain, which may: ?Feel like a crushing or squeezing in the chest. ?Feel like a tightness, pressure, fullness, or heaviness in the chest. ?Last for more than a few minutes at a time. ?Stop and come back (recur) after a few minutes. Pain in the neck, arm, jaw, or back. Heartburn or upset stomach (indigestion) for no reason. Being short of breath. Feeling sick to your stomach (nauseous). Sudden cold sweats. Women and people with diabetes may have other symptoms that are not usual, such as feeling: Tired (fatigue). Worried or nervous (anxious) for no reason. Weak for no reason. Dizzy or passing out (fainting). How is this treated? This condition may be treated with: Medicines. These are given to: ?Prevent blood clots. ?Prevent heart attack. ?Relax blood vessels and improve blood flow to the heart (nitrates). ?Reduce blood pressure. ?Improve the pumping action of the heart. ?Reduce fat and cholesterol in the blood. A procedure to widen a narrowed or blocked artery in the heart (angioplasty). Surgery to allow blood to go around a blocked artery (coronary artery bypass surgery). Follow these instructions at home: Medicines Take ltoq-yed-vhwejhs and prescription medicines only as told by your doctor. Do not take these medicines unless your doctor says that you can: ?NSAIDs. These include: ?Ibuprofen. ?Naproxen. ?Vitamin supplements that have vitamin A, vitamin E, or both. ?Hormone therapy that contains estrogen with or without progestin. Eating and drinking Eat a heart-healthy diet that includes: ?Lots of fresh fruits and vegetables. ?Whole grains. ?Low-fat (lean) protein. ?Low-fat dairy products. Follow instructions from your doctor about what you cannot eat or drink. Activity Follow an exercise program that your doctor tells you. Talk with your doctor about joining a program to help improve the health of your heart (cardiac rehab). When you feel tired, take a break. Plan breaks if you know you are going to feel tired. Lifestyle Do not use any products that contain nicotine or tobacco. This includes cigarettes, e-cigarettes, and chewing tobacco. If you need help quitting, ask your doctor. If your doctor says you can drink alcohol: ?Limit how much you use to: ?0 1 drink a day for women who are not . ? 0 2 drinks a day for men. ?Be aware of how much alcohol is in your drink. In the [place] one drink equals: ?One 12 oz bottle of beer (355 mL). ?One 5 oz glass of wine (148 mL). ?One 1 oz glass of hard liquor (44 mL). General instructions Stay at a healthy weight. If your doctor tells you to do so, work with him or her to lose weight. Learn to deal with stress. If you need help, ask your doctor. Keep your vaccines up to date. Get a flu shot every year. Talk with your doctor if you feel sad. Take a screening test to see if you are at risk for depression. Work with your doctor to manage any other health problems that you have. These may include diabetes or high blood pressure. Keep all follow-up visits as told by your doctor. This is important. Get help right away if: You have pain in your chest, neck, arm, jaw, or back, and the pain: ?Lasts more than a few minutes. ?Comes back. ?Does not get better after you take medicine under your tongue (sublingual nitroglycerin). ?Keeps getting worse. ?Comes more often. You have any of these problems for no reason: ?Sweating a lot. ?Heartburn or upset stomach. ?Shortness of breath. ?Trouble breathing. ?Feeling sick to your stomach. ?Throwing up (vomiting). ?Feeling more tired than normal. ?Feeling nervous or worrying more than normal. ?Weakness. You are suddenly dizzy or light-headed. You pass out. These symptoms may be an emergency. Do not wait to see if the symptoms will go away. Get medical help right away. Call your local emergency services (911 in the [place] Do not drive yourself to the hospital. Summary Angina is very bad discomfort or pain in the chest, neck, arm, neck, or back. Symptoms include chest pain, heartburn or upset stomach for no reason, and shortness of breath. Women or people with diabetes may have symptoms that are not usual, such as feeling nervous or worried for no reason, weak for no reason, or tired. Take all medicines only as told by your doctor. You should eat a heart-healthy diet and follow an exercise program. This information is not intended to replace advice given to you by your health care provider. Make sure you discuss any questions you have with your health care provider. Document Released: 08/03/2008 Document Revised: 10/03/2018 Document Reviewed: 10/03/2018 [employer] Patient Education 2020 [employer]. Follow Up Care 08/27/2022 23:04:36 With:PEYTON BARBA Address: [address] [place] [address] [address] [place] [address]- When:1-2 days Comments:Please call the office to schedule a follow up appointment. With:ANAHY TAVAREZ MD Address: [address] [facility] [address] [facility] [place] [address]- [phone] When:Within 2 Week(s) [facility] 08-29-2022 Note Discharge Instructions Thank you for allowing Center to assist you with your healthcare needs. The following is important discharge information regarding your hospital visit. Your Care Team PEYTON BARBA What to do next Follow Up Appointments Follow Up with PEYTON BARBA When Within 1-2 days Why: Please call the office to schedule a follow up appointment. Where: [address] [place] [address]- Follow Up with ANAHY TAVAREZ MD When In 2 weeks Where: [address] [facility] [place] [address]- [phone] The Following Activity and Diet Have Been Ordered for You Discharge Activity - Ordered -- Resume your pre-hospitalization activity, 08/29/22 14:35:00 EDT Discharge Diet - Ordered -- Diet Restrictions: Cardiac diet, Calories Permitted: 1800 kcal, Sodium limit: 2 gm, 08/29/22 14:35:00 EDT The Following Equipment Has Been Ordered for You No qualifying data available. The Following Treatments Have Been Ordered for You Discharge Labs No qualifying data available. Discharge Radiology No qualifying data available. Other Therapies No qualifying data available. Post Acute Orders No qualifying data available. Someone Will Contact You Regarding These Home Health Referrals No home referrals have been ordered for you. No one will call you. Allergies Midol Regular (numbness) Strawberries Toradol (migrains) codeine Medications Please ask your primary doctor or pharmacist before taking any other medication not listed, including over the counter drugs, herbal medications, vitamins and or supplements as they may interact with your home medications. What How Much When Why Instructions Last Dose New isosorbide mononitrate (isosorbide mononitrate 30 mg oral tablet, extended release) 1 tab(s) by mouth Once a day before a meal Pickup at [facility] 0291 Changed metoprolol (metoprolol tartrate 50 mg oral tablet) 1 tab(s) by mouth Two (2) times a day Unchanged albuterol (albuterol MDI (90 mcg/ inh) CFC free inhalation aerosol) INHALE 1 PUFF BY MOUTH EVERY 4 TO 6 HOURS NEEDED Unchanged aspirin (Aspirin Low Dose 81 mg oral tablet, chewable) 1 tab(s) Chewed Once a day Duration: 30 Days Unchanged atorvastatin (Lipitor 80 mg oral tablet) 1 tab(s) by mouth Once a day Unchanged DME (Freestyle [place] 14 day sensor) See instructions Diabetes FREESTYLE 2 SENSOR Unchanged DME (Freestyle [place]) See instructions Diabetes FREESTYLE 2 READER Unchanged ezetimibe (ezetimibe 10 mg oral tablet) TAKE 1 TABLET BY MOUTH ONCE DAILY Unchanged fenofibrate (fenofibrate 160 mg oral tablet) 1 tab(s) by mouth Once a day with a meal Unchanged insulin isophane (NPH) - insulin regular (HumuLIN 70/ 30 KwikPen 70 units-30 units/ mL subcutaneous suspension) 35 unit(s) Subcutaneous Two (2) times daily before meals Unchanged nitroGLYcerin (nitroglycerin 0.4 mg sublingual tablet) 1 tab(s) under the tongue Every 5 minutes as needed for for chest pain Unchanged pregabalin (pregabalin 100 mg oral capsule) 1 cap by mouth Two (2) times a day TAKE 1 CAPSULE BY MOUTH THREE TIMES DAILY Unchanged ramipril (Altace 2.5 mg oral capsule) 1 cap by mouth Once a day Duration: 30 Days Unchanged ticagrelor (Brilinta (ticagrelor) 60 mg oral tablet) 1 tab(s) by mouth Two (2) times a day Unchanged zolpidem (Ambien 10 mg oral tablet) 1 tab(s) by mouth Daily at bedtime Pharmacy Information [id number]: [address], [place] [phone] Please take this list to your next doctor s visit. Bring all medications you take, including over the counter medications, herbals and other supplements with you to your doctor s visit. Patients and families are reminded to discard old lists and to update any records with all medication providers or retail pharmacies. Education Materials Angina Angina is very bad discomfort or pain in the chest, neck, arm, jaw, or back. The discomfort is caused by a lack of blood in the middle layer of the heart wall (myocardium). What are the causes? This condition is caused by a buildup of fat and cholesterol (plaque) in your arteries (atherosclerosis). This buildup narrows the arteries and makes it hard for blood to flow. What increases the risk? You are more likely to develop this condition if: You have high levels of cholesterol in your blood. You have high blood pressure (hypertension). You have diabetes. You have a family history of heart disease. You are not active, or you do not exercise enough. You feel sad (depressed). You have been treated with high energy rays (radiation) on the left side of your chest. Other risk factors are: Using tobacco. Being very overweight (obese). Eating a diet high in unhealthy fats (saturated fats). Having stress, or being exposed to things that cause stress. Using drugs, such as cocaine. Women have a greater risk for angina if: They are older than 55. They have stopped having their period (are in postmenopause). What are the signs or symptoms? Common symptoms of this condition in both men and women may include: Chest pain, which may: ? Feel like a crushing or squeezing in the chest. ? Feel like a tightness, pressure, fullness, or heaviness in the chest. ? Last for more than a few minutes at a time. ? Stop and come back (recur) after a few minutes. Pain in the neck, arm, jaw, or back. Heartburn or upset stomach (indigestion) for no reason. Being short of breath. Feeling sick to your stomach (nauseous). Sudden cold sweats. Women and people with diabetes may have other symptoms that are not usual, such as feeling: Tired (fatigue). Worried or nervous (anxious) for no reason. Weak for no reason. Dizzy or passing out (fainting). How is this treated? This condition may be treated with: Medicines. These are given to: ? Prevent blood clots. ? Prevent heart attack. ? Relax blood vessels and improve blood flow to the heart (nitrates). ? Reduce blood pressure. ? Improve the pumping action of the heart. ? Reduce fat and cholesterol in the blood. A procedure to widen a narrowed or blocked artery in the heart (angioplasty). Surgery to allow blood to go around a blocked artery (coronary artery bypass surgery). Follow these instructions at home: Medicines Take vuzh-jql-hwexeks and prescription medicines only as told by your doctor. Do not take these medicines unless your doctor says that you can: ? NSAIDs. These include: ? Ibuprofen. ? Naproxen. ? Vitamin supplements that have vitamin A, vitamin E, or both. ? Hormone therapy that contains estrogen with or without progestin. Eating and drinking Eat a heart-healthy diet that includes: ? Lots of fresh fruits and vegetables. ? Whole grains. ? Low-fat (lean) protein. ? Low-fat dairy products. Follow instructions from your doctor about what you cannot eat or drink. Activity Follow an exercise program that your doctor tells you. Talk with your doctor about joining a program to help improve the health of your heart (cardiac rehab). When you feel tired, take a break. Plan breaks if you know you are going to feel tired. Lifestyle Do not use any products that contain nicotine or tobacco. This includes cigarettes, e-cigarettes, and chewing tobacco. If you need help quitting, ask your doctor. If your doctor says you can drink alcohol: ? Limit how much you use to: ? 0 1 drink a day for women who are not . ? 0 2 drinks a day for men. ? Be aware of how much alcohol is in your drink. In the [place] one drink equals: ? One 12 oz bottle of beer (355 mL). ? One 5 oz glass of wine (148 mL). ? One 1 oz glass of hard liquor (44 mL). General instructions Stay at a healthy weight. If your doctor tells you to do so, work with him or her to lose weight. Learn to deal with stress. If you need help, ask your doctor. Keep your vaccines up to date. Get a flu shot every year. Talk with your doctor if you feel sad. Take a screening test to see if you are at risk for depression. Work with your doctor to manage any other health problems that you have. These may include diabetes or high blood pressure. Keep all follow-up visits as told by your doctor. This is important. Get help right away if: You have pain in your chest, neck, arm, jaw, or back, and the pain: ? Lasts more than a few minutes. ? Comes back. ? Does not get better after you take medicine under your tongue (sublingual nitroglycerin). ? Keeps getting worse. ? Comes more often. You have any of these problems for no reason: ? Sweating a lot. ? Heartburn or upset stomach. ? Shortness of breath. ? Trouble breathing. ? Feeling sick to your stomach. ? Throwing up (vomiting). ? Feeling more tired than normal. ? Feeling nervous or worrying more than normal. ? Weakness. You are suddenly dizzy or light-headed. You pass out. These symptoms may be an emergency. Do not wait to see if the symptoms will go away. Get medical help right away. Call your local emergency services (911 in the [place] Do not drive yourself to the hospital. Summary Angina is very bad discomfort or pain in the chest, neck, arm, neck, or back. Symptoms include chest pain, heartburn or upset stomach for no reason, and shortness of breath. Women or people with diabetes may have symptoms that are not usual, such as feeling nervous or worried for no reason, weak for no reason, or tired. Take all medicines only as told by your doctor. You should eat a heart-healthy diet and follow an exercise program. This information is not intended to replace advice given to you by your health care provider. Make sure you discuss any questions you have with your health care provider. Document Released: 08/03/2008 Document Revised: 10/03/2018 Document Reviewed: 10/03/2018 [employer] Patient Education 2020 [employer]. Additional Information VACCINATE! IT SAVES LIVES! Members of the community who have not yet received the COVID-19 vaccine and would like to receive it can visit one of [facility] vaccine clinics. There are many vaccine clinic locations within the [facility]. For locations and available times, please visit [email or web address].coronavirus.[place].gov/. It is important to note that some COVID mobile vaccine clinics are held outdoors and may be canceled in rainy or stormy conditions. To learn more about pediatric vaccinations (ages 5-11), we invite you to visit the [facility] webpage. [email or web address].[email or web address].org/pag es/9476-Ovtgm-Lfsmbazykuy-Frequent fr-Sinxe-Redbljhat.html To learn more about the COVID-19 vaccine, we invite you to visit the CDC website for a list of frequently asked questions.https://www.cdc.gov/parish navirus/2019-ncov/vaccines/faq.htm maurisio [employer] Patient Portal Access Instructions: Stay connected with your healthcare team and access your personal medical information anytime with the [facility] Patient Portal. Please follow the directions below to create your [employer] account: 1.Access the email account you provided upon registration to the hospital/physician office.2.Look for an invitation email from [facility].3.Open the email and access the invitation link: Accept Invitation to [facility].4.Fill in the required de leon to create your account. To access your account, visit [email or web address]. Click the blue button labeled Access Patient Portal and then log in with the username and password that you created in the steps above. You will be able to view your test results, lab results, a summary of your visits, upcoming appointments and more. There is also a convenient messaging option where you can send secure messages to your provider. In addition, you will have the ability to download any documents or summaries to your computer and/or send the information securely to a physician. Remember that your healthcare information is confidential, so carefully consider who you will allow to register on the [facility] Patient Portal for access to your information. You can also access the [facility] Patient Portal on the [facility] nicanor. Simply click on Patient Portal and then log into your account. If you would like to receive a full copy of your medical records, please contact the [facility] Medical Records Department by calling [phone], Wednesday through Wednesday between 8 a.m. and 4:30 p.m. HOW TO SAFELY DISPOSE OF PRESCRIPTION MEDICATIONS Please use one of the following methods to safely dispose of your unused medications. 1.Use a drug disposal kit: the drug disposal pouch allows you to safely discard your old and unused drugs. Ask your nurse to give you one when you are discharged.2.Visit a local take-back location: Many local pharmacies and police departments have programs that collect old and unwanted prescription drugs. Call your local pharmacy or go to http://XING.Keystone Insights/8V2Nn2o to find one close to you.3.Make use of household items: Use cat litter or old coffee grounds to dispose medications if other options are not available. Mix your drugs with these household products, seal them in an airtight container and throw it into the garbage. Call [facility]: [phone] to be sure your drugs can be disposed of in this way. Some medicines may require a different approach.4.Never flush your medications down the toilet. IF YOU HAVE BEEN PRESCRIBED AN OPIOID FOR PAIN If you have been prescribed an opioid (such as hydrocodone, oxycodone or morphine), it is critical to understand the possible side effects and risks of opioid pain medications. Even when taken as directed, opioids can have several side effects including: Tolerance, meaning you might need to take more of a medication for the same pain relief. Nausea, vomiting and/or constipation. Sleepiness, dizziness, dry mouth, confusion, depression or itching. Physical dependence, meaning you have withdrawal symptoms when a medication is stopped, can develop within a few days. KNOW YOUR RESPONSIBILITIES It is important to know exactly how much and how often to take the opioid pain medications you are prescribed. Never take opioids in higher amounts or more often than prescribed. Do not combine opioids with alcohol or other drugs that cause drowsiness, such as benzodiazepines, also known as benzos, including diazepam and alprazolam, muscle relaxants or sleep aids. Never sell or share prescription opioids. This is illegal. Store opioids in a secure place and out of reach of others (including children, family, friends and visitors). The last page of this document has been signed and retained as a CHART COPY. Signatures Patient Education Materials Angina, [id number] Medication Leaflets My discharge plan and instructions have been reviewed and explained to me and I,MARVIN COOK understand my current condition and have read and understand these discharge instructions. I have received a written copy of the plan/instructions. If I have questions, I am aware that I should contact my doctor. Patient/Stitcher Tape Controlled Machine Signature: Date/Time: Relationship to Patient: ___ Witness Name/Signature: Date/Time: [facility] 08-29-2022 Discharge summary Date of Service 08/29/22 Hospital Course 37-year female with past medical history of CAD status post TRACI left circumflex 07/2020/TRACI RCA 04/2021, costochondritis, fatty liver, hypertension, hyperlipidemia, diabetes, diabetic neuropathy, morbid obesity, insomnia presented on 08/27 with chest pain. History of CAD status post 2 stents. Last cardiac cath in 04/2021 and proximal RCA stent was placed. On aspirin, Brilinta, atorvastatin, metoprolol, ramipril. Echocardiogram 07/2020 with EF 55% ECG, troponin unremarkable. Cardiac cath on this admission showed moderate CAD predominantly involving LAD, coronary artery disease no change when compared to previous study, no stent restenosis, aggressive medical therapy advised. Imdur 30 mg daily added by cardiology. Patient has LAILA. Patient had sleep studies done in the past and patient supposed to use CPAP but patient mention she does not use the machine. Had long discussion with the patient regarding benefits of using CPAP. Patient discharged home in stable condition. Patient will follow with PCP and cardiology outpatient. Allergies Midol Regular (numbness) Strawberries Toradol (migrains) codeine Consults Consult to Physician - Ordered -- 08/28/22 0:42:00 EDT, WINNIE RENDON MD, Routine, pt transfer from for CVC eval. hx [place] s/p stents with chest pressure Objective Vitals and Measurements T: 36.5 C (Oral) TMIN: 36.4 C (Oral) TMAX: 36.6 C (Oral) HR: 55 RR: 18 BP: 111/66 SpO2: 98% Weight Dosing Weight: 118.2 kg (08/27/22) General: alert, NAD HEENT: eyes show no evidence of icterus Cardiovascular: regular rate and rhythm, no S3/S4 Respiratory: Lungs CTABL, respirations non labored Abdomen: soft, non-tender, positive bowel sounds, no organomegaly, no guarding, no rigidity Psych: cooperative Extremities: no peripheral edema Neurological: speech normal Code Status Code Status - Ordered -- 08/27/22 23:40:00 EDT, Full Code, Constant Order Admission Date 08/27/22 Discharge Date 08/29/22 Medications New Prescription isosorbide mononitrate (isosorbide mononitrate 30 mg oral tablet, extended release)1 tab(s) by mouth once a day before a meal. Refills: 0. Changed metoprolol (metoprolol tartrate 50 mg oral tablet)1 tab(s) by mouth two (2) times a day. Unchanged albuterol (albuterol MDI (90 mcg/inh) CFC free inhalation aerosol)INHALE 1 PUFF BY MOUTH EVERY 4 TO 6 HOURS NEEDED. aspirin (Aspirin Low Dose 81 mg oral tablet, chewable)1 tab(s) Chewed once a day for 30 Days. Refills: 11. atorvastatin (Lipitor 80 mg oral tablet)1 tab(s) by mouth once a day. Refills: 3. DME (Freestyle [place] 14 day sensor)FREESTYLE 2 SENSOR. Refills: 5. DME (Freestyle [place])FREESTYLE 2 READER. Refills: 0. ezetimibe (ezetimibe 10 mg oral tablet)TAKE 1 TABLET BY MOUTH ONCE DAILY. fenofibrate (fenofibrate 160 mg oral tablet)1 tab(s) by mouth once a day with a meal. Refills: 0. insulin isophane (NPH) - insulin regular (HumuLIN 70/30 KwikPen 70 units-30 units/mL subcutaneous suspension)35 unit(s) Subcutaneous two (2) times daily before meals. Refills: 1. nitroGLYcerin (nitroglycerin 0.4 mg sublingual tablet)1 tab(s) under the tongue every 5 minutes as needed for chest pain. Refills: 11. pregabalin (pregabalin 100 mg oral capsule)1 cap by mouth two (2) times a day. TAKE 1 CAPSULE BY MOUTH THREE TIMES DAILY. ramipril (Altace 2.5 mg oral capsule)1 cap by mouth once a day for 30 Days. Refills: 11. ticagrelor (Brilinta (ticagrelor) 60 mg oral tablet)1 tab(s) by mouth two (2) times a day. Refills: 3. zolpidem (Ambien 10 mg oral tablet)1 tab(s) by mouth daily at bedtime. Follow Up Follow Up with PEYTON BARBA When Within 1-2 days Why: Please call the office to schedule a follow up appointment. Where: [address] [place] [address]- Follow Up with ANAHY TAVAREZ MD When In 2 weeks Where: [address] [facility] [address] [facility] [place] [address]- [phone] Follow Up Appointments No qualifying data available. Follow Up Labs/Studies Discharge Labs No Follow-up Labs Discharge Studies No Follow-up Studies Discharge Diet No qualifying data available. Discharge Activity No qualifying data available. Readmission Risk/Palliative Score LACE Score: 7 (08/28/22 13:19:00) Palliative Total Score: 1 (08/28/22 13:20:00) Digitally Signed by FRANK NIELSEN MD on 08/29/2022 02:[address] [facility] 08-29-2022 Cardiology Progress note Date of Service 08/29/2022 Chief Complaint Chest pain Subjective Reviewed cardiac catheterization from yesterday. LAD 50% stenosis. Ostial OM1 50% stenosis. Patent stent in proximal RCA. Patent LCx stent. No significant obstructive CAD noted. EF was 55 and 60%. High-sensitivity troponin normal x2. patient continues to have chest pain which is reproducible. Objective Vitals and Measurements T: 36.6 C (Oral) TMIN: 36.4 C (Oral) TMAX: 36.6 C (Oral) HR: 66(Apical) RR: 18 BP: 110/68 SpO2: 97% Intake and Output 7AM Yesterday to 7AM Today Intake and Output (Last 24 hours) Intake Oral Intake 1340.00 Output Stool Count 0.00 Urine Count 5.00 Total Summary Total Intake 1340.00 Total Output 0.00 Fluid Balance 1340.00 Physical Exam General: Alert awake oriented 3 Head: Normocephalic atraumatic Eyes: Pupils equal reacting to light and accommodation Neck: Supple, trachea midline Chest: Clear to auscultation, no crackles, no wheezes Heart: S1, S2 normal, rate rhythm regular, no significant murmurs. Abdomen: Soft, bowel sounds present, nontender, no distention Extremities: Nontender, no edema Neurological: Alert awake oriented 3, no focal neurologic deficits Skin: Warm to touch, intact Weight Dosing Weight: 118.2 kg (08/27/22) Medications Medications (24) Active Scheduled: (12) aspirin 81 mg Chewable 81 mg 1 tab(s), Chewed, qDay atorvastatin 80 mg tablet 80 mg 1 tab(s), Oral, qDay ezetimibe 10 mg tablet 10 mg 1 tab(s), Oral, qDay fenofibrate 160 mg tablet 160 mg 1 tab(s), Oral, qDayM insulin isophane human recombinant 100 units/ml (10 mL) Inj 35 unit(s) 0.35 mL, Subcutaneous, BIDAC insulin lispro 100 units/mL Soln (3 mL) Give 0-5 units/dose, Subcutaneous, TIDAC isosorbide mononitrate 30 mg ER tablet 30 mg 1 tab(s), Oral, qDayAC lisdexamfetamine 50 mg capsule 50 mg 1 cap(s), Oral, qAM metoprolol succinate 50 mg ER tablet 50 mg 1 tab(s), Oral, BID pregabalin 50 mg capsule 100 mg 2 cap(s), Oral, BID ramipril 2.5 mg Capsule 2.5 mg 1 cap(s), Oral, qDay ticagrelor 90 mg tablet 90 mg 1 tab(s), Oral, BID Continuous: (0) PRN: (12) acetaminophen 325 mg Tablet 650 mg 2 tab(s), Oral, q6hWA albuterol 0.083% Soln UD (2.5mg/3 mL) 2.5 mg 3 mL, Inhalation, q4hRT HYDROmorphone 0.5 mg/0.5 mL PF syringe 0.5 mg 0.5 mL, IV Push, q2h hydromorphone 1 mg/mL (1mL) INJ 1 mg 1 mL, IV Push, q2h melatonin 3 mg tablet 3 mg 1 tab(s), Oral, qHS melatonin 3 mg tablet 3 mg 1 tab(s), Oral, qHS nitroglycerin 0.4 mg Tablet (25/btl) 0.4 mg 1 tab(s), Sublingual, q5min ondansetron 2 mg/ 1 mL 2 mL INJ 4 mg 2 mL, IV Push, q4h ondansetron 4 mg DIS tablet 4 mg 1 tab(s), Oral, q6h oxycodone 5 mg tablet (immediate release) 5 mg 1 tab(s), Oral, q4h oxycodone 5 mg tablet (immediate release) 10 mg 2 tab(s), Oral, q4h sucralfate 1 gm/10 mL Suspension 1 gram(s) 10 mL, Oral, achs Lab Results 08/29 06:40 Hgb: 13.2 Hct: 40.0 Glucose Level: 99 Sodium Level: 140 Potassium Level: 4.6 BUN: 16.0 Creatinine Lvl (s): 0.90 08/28 04:38 WBC: 4.6 Hgb: 12.6 Hct: 38.2 Platelet: 258 Neutrophil %: 45.4 L Glucose Level: 119 H Sodium Level: 141 Potassium Level: 4.0 BUN: 17.0 Creatinine Lvl (s): 1.02 EKG No qualifying data available. Assessment/Plan Orders: isosorbide mononitrate, Start: 08/29/22 10:11:00 EDT, Dose = 30 mg, = 1 tab(s), Oral, qDayAC, 08/29/22 10:11:00 EDT Impression: 1. Atypical chest pain likely costochondritis 2. CAD s/p PCI [cath 08/28/2022 patent RCA and LCx stents. Moderate disease involving LAD and ostial OM1] 3. Hypertriglyceridemia 4. Obesity Plan: Patient's chest pain is predominantly reproducible. Likely costochondritis. May have a competent of vasospasm. We will start isosorbide 30 mg p.o. daily. Continue aspirin Lipitor Brilinta Toprol-XL. We will sign off. Call us with questions. Patient instructed to avoid lifting more than 5 pounds using right hand for the next 5 days. Digitally Signed by MARIA ELENA HARE MD on 08/29/2022 10:[address] [facility] 08-28-2022 Cardiology Consult note Date of Service 08/28/2022 Reason for Consultation Chest pain Review of Systems Apart from mentioned in HPI, pertinent review of systems is otherwise negative. Physical Exam Vitals and Measurements T: 36.5 C (Oral) HR: 55(Apical) RR: 18 BP: 102/72 SpO2: 97% HT: 162.6 cm WT: 118.2 kg BMI: 44.71 Weight Dosing Weight: 118.2 kg (08/27/22) General Appearance: Comfortable, not in acute distress Cardiac: S1, S2, no murmurs, regular rhythm, normal rate, no lower extremity edema, no crackles, no JVP distention, warm extremities. Lungs: No wheezes, normal chest expansion. Abdomen: No tenderness, no distention, normal bowel sounds. Musculoskeletal: No signs of acute synovitis. Neurological: Alert and oriented x3, no focal neurological deficits grossly. Psychiatric: Appropriate, normal mood. Lab Results 08/28 04:38 WBC: 4.6 Hgb: 12.6 Hct: 38.2 Platelet: 258 Neutrophil %: 45.4 L Glucose Level: 119 H Sodium Level: 141 Potassium Level: 4.0 BUN: 17.0 Creatinine Lvl (s): 1.02 Assessment/Plan Chest discomfort with negative troponins and normal ECG CAD s/p PCI TRACI 100% LCx 07/2020 TRACI PCI RCA 04/2021, Moderate angiographic LAD 50% 2020 Dyslipidemia, TG >1100 Obesity with history of bariatric surgery, chronic pain on pregabalin, IDDM, History of costochondritis CVC: JT 37-year-old woman with CAD s/p PCI TRACI 100% LCx 2020, moderate angiographic RCA and LAD disease 2021, transferred from ED for chest pain, work-up so far included negative CXR, CTA for PE, CBC, troponin x5, BMP, urine , BMP. Her chest pain is described as very similar to her previous heart attack. With the difference of new left arm radiation at this time. Previous cardiac work-up included: 7-day event monitor: Predominant NSR, <1% PACs and PVCs LVEF 55-60% TTE 07/2020 and LV gram 04/2021 Lexiscan nuclear 12/12/2021 No definite perfusion defects EF 66% Recommendations: Left heart cath today Continue dual antiplatelets, atorvastatin, metoprolol If heart cath is clean, okay to discharge later today and follow-up with cardiology office Will also obtain lipid panel and direct LDL-C measurement, for office FUP Discussed with Dr. Audrey Paul MD Telescope [employer] or Pager [phone] Problem List/Past Medical History Ongoing Coronary disease Costochondritis Dyspnea Elevated glucose Hyperlipidemia Morbid obesity Overweight Type II diabetes mellitus Vasovagal near syncope Historical No qualifying data Procedure/Surgical History Gastric sleeve: 05/20/22 Cardiovascular stress testin12/12/21 Prescription event monitorin10/30/21 Cardiac catheterization: 05/23/21 Echocardiogram: 08/27/20 PTCA - Percutaneous transluminal coronary angioplasty: 08/26/20 Cardiac catheterization: 08/26/20 Cholecystectomy;: 05/15/15 delivery Medications Inpatient acetaminophen, 650 mg= 2 tab(s), Oral, q6hWA, PRN albuterol, 2.5 mg= 3 mL, Inhalation, q4hRT, PRN Altace, 2.5 mg= 1 cap(s), Oral, qDay aspirin, 81 mg= 1 tab(s), Chewed, qDay Brilinta (ticagrelor) 60 mg oral tablet, 60 mg= 1 tab(s), Oral, BID Carafate, 1 gram(s)= 10 mL, Oral, achs, PRN Dilaudid, 0.5 mg= 0.5 mL, IV Push, q2h, PRN Dilaudid, 1 mg= 1 mL, IV Push, q2h, PRN ezetimibe, 10 mg= 1 tab(s), Oral, qDay fenofibrate 160 mg oral tablet, 160 mg= 1 tab(s), Oral, qDayM Lipitor, 80 mg= 1 tab(s), Oral, qDay Lopressor, 50 mg= 1 tab(s), Oral, BIDM melatonin, 3 mg= 1 tab(s), Oral, qHS, PRN melatonin, 3 mg= 1 tab(s), Oral, qHS, PRN nitroglycerin 0.4 mg sublingual tablet, 0.4 mg= 1 tab(s), Sublingual, q5min, PRN NovoLIN N, 35 unit(s)= 0.35 mL, Subcutaneous, BIDAC oxyCODONE 5 mg oral tablet ( IMMEDIATE release ), 5 mg= 1 tab(s), Oral, q4h, PRN oxyCODONE 5 mg oral tablet ( IMMEDIATE release ), 10 mg= 2 tab(s), Oral, q4h, PRN pregabalin 100 mg oral capsule, 100 mg= 2 cap(s), Oral, BID Vyvanse, 50 mg= 1 cap(s), Oral, qAM Zofran, 4 mg= 2 mL, IV Push, q4h, PRN Zofran ODT, 4 mg= 1 tab(s), Oral, q6h, PRN Home albuterol MDI (90 mcg/inh) CFC free inhalation aerosol Altace 2.5 mg oral capsule, 2.5 mg= 1 cap(s), Oral, qDay, 11 refills Ambien 10 mg oral tablet, 10 mg= 1 tab(s), Oral, qHS Aspirin Low Dose 81 mg oral tablet, chewable, 81 mg= 1 tab(s), Chewed, qDay, 11 refills Brilinta (ticagrelor) 60 mg oral tablet, 60 mg= 1 tab(s), Oral, BID, 3 refills ezetimibe 10 mg oral tablet fenofibrate 160 mg oral tablet, 160 mg= 1 tab(s), Oral, qDayM, New Prescription Freestyle [place], See Instructions Freestyle [place] 14 day sensor, See Instructions, 5 refills HumuLIN 70/30 KwikPen 70 units-30 units/mL subcutaneous suspension, 35 unit(s), Subcutaneous, BIDAC, 1 refills Lipitor 80 mg oral tablet, 80 mg= 1 tab(s), Oral, qDay, 3 refills metoprolol tartrate 50 mg oral tablet, 50 mg= 1 tab(s), Oral, BID nitroglycerin 0.4 mg sublingual tablet, 0.4 mg= 1 tab(s), Sublingual, q5min, PRN, 11 refills pregabalin 100 mg oral capsule, 100 mg= 1 cap(s), Oral, BID Toprol-XL 200 mg oral tablet, extended release, 200 mg= 1 tab(s), Oral, qDay, 3 refills, Not taking Allergies Midol Regular (numbness) Strawberries Toradol (migrains) codeine Social History Smoking Status - 12/14/2013 Current every day smoker Alcohol Use: Never., 10/23/2020 Home/Environment Marital Status: Unmarried., 10/23/2020 Nutrition/Health Caffeine intake amount: none., 10/28/2021 Substance Abuse Use: Never., 10/23/2020 Tobacco Nicotine Use: Quit March 2022., 06/02/2022 Family History Asthma: Mother, Sister, Brother and Maternal Grandmother. Cancer: Mother and Maternal Grandmother. Diabetes: Maternal Grandmother. Diabetes: Maternal Grandmother. Heart attack: Father and Grandparent. Renal disease: Maternal Grandmother. Sudden : Father. Immunizations No qualifying data available. Digitally Signed by ATIYA PAUL MD on 08/28/2022 10:25 AM Digitally Signed by ATIYA PAUL MD on 08/28/2022 03:[address] [facility] 08-28-2022 Note Date of Service 08/28/22 Chief Complaint Chest pain Subjective No major overnight events. Hemodynamically stable. Patient mentioned she is still experiencing intermittent chest pain and shortness of breath.. No palpitations, dizziness, fever, chills, abdominal pain, nausea, vomiting, diarrhea Objective Vitals and Measurements T: 36.6 C (Oral) TMIN: 36.5 C (Oral) TMAX: 36.6 C (Oral) HR: 64 RR: 18 BP: 96/58 SpO2: 96% HT: 162.6 cm WT: 118.2 kg BMI: 44.71 Intake and Output 7AM Yesterday to 7AM Today Intake and Output (Last 24 hours) Intake Oral Intake 240.00 Output Total Summary Total Intake 240.00 Total Output 0.00 Fluid Balance 240.00 Physical Exam General: alert, NAD HEENT: eyes show no evidence of icterus Cardiovascular: regular rate and rhythm, no S3/S4 Respiratory: Lungs CTABL, respirations non labored Abdomen: soft, non-tender, positive bowel sounds, no organomegaly, no guarding, no rigidity Psych: cooperative Extremities: no peripheral edema Neurological: speech normal, motor strength equal and normal b/l Weight Dosing Weight: 118.2 kg (08/27/22) Medications Medications (22) Active Scheduled: (10) aspirin 81 mg Chewable 81 mg 1 tab(s), Chewed, qDay atorvastatin 80 mg tablet 80 mg 1 tab(s), Oral, qDay ezetimibe 10 mg tablet 10 mg 1 tab(s), Oral, qDay fenofibrate 160 mg tablet 160 mg 1 tab(s), Oral, qDayM insulin isophane human recombinant 100 units/ml (10 mL) Inj 35 unit(s) 0.35 mL, Subcutaneous, BIDAC lisdexamfetamine 50 mg capsule 50 mg 1 cap(s), Oral, qAM metoprolol succinate 50 mg ER tablet 50 mg 1 tab(s), Oral, BID pregabalin 50 mg capsule 100 mg 2 cap(s), Oral, BID ramipril 2.5 mg Capsule 2.5 mg 1 cap(s), Oral, qDay ticagrelor 90 mg tablet 90 mg 1 tab(s), Oral, BID Continuous: (0) PRN: (12) acetaminophen 325 mg Tablet 650 mg 2 tab(s), Oral, q6hWA albuterol 0.083% Soln UD (2.5mg/3 mL) 2.5 mg 3 mL, Inhalation, q4hRT HYDROmorphone 0.5 mg/0.5 mL PF syringe 0.5 mg 0.5 mL, IV Push, q2h hydromorphone 1 mg/mL (1mL) INJ 1 mg 1 mL, IV Push, q2h melatonin 3 mg tablet 3 mg 1 tab(s), Oral, qHS melatonin 3 mg tablet 3 mg 1 tab(s), Oral, qHS nitroglycerin 0.4 mg Tablet (25/btl) 0.4 mg 1 tab(s), Sublingual, q5min ondansetron 2 mg/ 1 mL 2 mL INJ 4 mg 2 mL, IV Push, q4h ondansetron 4 mg DIS tablet 4 mg 1 tab(s), Oral, q6h oxycodone 5 mg tablet (immediate release) 5 mg 1 tab(s), Oral, q4h oxycodone 5 mg tablet (immediate release) 10 mg 2 tab(s), Oral, q4h sucralfate 1 gm/10 mL Suspension 1 gram(s) 10 mL, Oral, achs Lab Results 08/28 04:38 WBC: 4.6 Hgb: 12.6 Hct: 38.2 Platelet: 258 Neutrophil %: 45.4 L Glucose Level: 119 H Sodium Level: 141 Potassium Level: 4.0 BUN: 17.0 Creatinine Lvl (s): 1.02 EKG No qualifying data available. Assessment/Plan 37-year female with past medical history of CAD status post TRACI left circumflex 07/2020/TRACI RCA 04/2021, costochondritis, fatty liver, hypertension, hyperlipidemia, diabetes, diabetic neuropathy, morbid obesity, insomnia Chest pain History of CAD status post 2 stents. On aspirin, Brilinta, atorvastatin, metoprolol, ramipril Echocardiogram 07/2020 with EF 55% ECG, troponin unremarkable Cardiology following, cardiac cath today Hypertension On metoprolol succinate, ramipril Hyperlipidemia On atorvastatin, fenofibrate, ezetimibe Diabetes Home meds: Insulin 70/30 35 units twice daily Inpatient: NPH 35 units twice daily, SSI Diabetic neuropathy On Lyrica Fatty liver Seen on liver ultrasound 04/2022 Morbid obesity BMI around 45 Insomnia On Ambien Diet: Regular DVT prophylaxis: heparin Code: Full This dictation was performed using voice recognition software and may include grammatical and/or spelling errors. Dr. Frank Nielsen Hospitalist Digitally Signed by FRANK NIELSEN MD on 08/28/2022 01:[address] [facility] 08-28-2022 Cardiology Consult note Date of Service 08/28/2022 Reason for Consultation Chest pain Review of Systems Apart from mentioned in HPI, pertinent review of systems is otherwise negative. Physical Exam Vitals and Measurements T: 36.5 C (Oral) HR: 55(Apical) RR: 18 BP: 102/72 SpO2: 97% HT: 162.6 cm WT: 118.2 kg BMI: 44.71 Weight Dosing Weight: 118.2 kg (08/27/22) General Appearance: Comfortable, not in acute distress Cardiac: S1, S2, no murmurs, regular rhythm, normal rate, no lower extremity edema, no crackles, no JVP distention, warm extremities. Lungs: No wheezes, normal chest expansion. Abdomen: No tenderness, no distention, normal bowel sounds. Musculoskeletal: No signs of acute synovitis. Neurological: Alert and oriented x3, no focal neurological deficits grossly. Psychiatric: Appropriate, normal mood. Lab Results 08/28 04:38 WBC: 4.6 Hgb: 12.6 Hct: 38.2 Platelet: 258 Neutrophil %: 45.4 L Glucose Level: 119 H Sodium Level: 141 Potassium Level: 4.0 BUN: 17.0 Creatinine Lvl (s): 1.02 Assessment/Plan Chest discomfort with negative troponins and normal ECG CAD s/p PCI TRACI 100% LCx 07/2020 TRACI PCI RCA 04/2021, Moderate angiographic LAD 50% 2020 Dyslipidemia, TG >1100 Obesity with history of bariatric surgery, chronic pain on pregabalin, IDDM, History of costochondritis CVC: JT 37-year-old woman with CAD s/p PCI TRACI 100% LCx 2020, moderate angiographic RCA and LAD disease 2021, transferred from ED for chest pain, work-up so far included negative CXR, CTA for PE, CBC, troponin x5, BMP, urine , BMP. Her chest pain is described as very similar to her previous heart attack. With the difference of new left arm radiation at this time. Previous cardiac work-up included: 7-day event monitor: Predominant NSR, <1% PACs and PVCs LVEF 55-60% TTE 07/2020 and LV gram 04/2021 Lexiscan nuclear 12/12/2021 No definite perfusion defects EF 66% Recommendations: Left heart cath today Continue dual antiplatelets, atorvastatin, metoprolol If heart cath is clean, okay to discharge later today and follow-up with cardiology office Will also obtain lipid panel and direct LDL-C measurement, for office FUP Discussed with Dr. Audrey Paul MD Telescope [employer] or Pager [phone] Problem List/Past Medical History Ongoing Coronary disease Costochondritis Dyspnea Elevated glucose Hyperlipidemia Morbid obesity Overweight Type II diabetes mellitus Vasovagal near syncope Historical No qualifying data Procedure/Surgical History Gastric sleeve: 05/20/22 Cardiovascular stress testin12/12/21 Prescription event monitorin10/30/21 Cardiac catheterization: 05/23/21 Echocardiogram: 08/27/20 PTCA - Percutaneous transluminal coronary angioplasty: 08/26/20 Cardiac catheterization: 08/26/20 Cholecystectomy;: 05/15/15 delivery Medications Inpatient acetaminophen, 650 mg= 2 tab(s), Oral, q6hWA, PRN albuterol, 2.5 mg= 3 mL, Inhalation, q4hRT, PRN Altace, 2.5 mg= 1 cap(s), Oral, qDay aspirin, 81 mg= 1 tab(s), Chewed, qDay Brilinta (ticagrelor) 60 mg oral tablet, 60 mg= 1 tab(s), Oral, BID Carafate, 1 gram(s)= 10 mL, Oral, achs, PRN Dilaudid, 0.5 mg= 0.5 mL, IV Push, q2h, PRN Dilaudid, 1 mg= 1 mL, IV Push, q2h, PRN ezetimibe, 10 mg= 1 tab(s), Oral, qDay fenofibrate 160 mg oral tablet, 160 mg= 1 tab(s), Oral, qDayM Lipitor, 80 mg= 1 tab(s), Oral, qDay Lopressor, 50 mg= 1 tab(s), Oral, BIDM melatonin, 3 mg= 1 tab(s), Oral, qHS, PRN melatonin, 3 mg= 1 tab(s), Oral, qHS, PRN nitroglycerin 0.4 mg sublingual tablet, 0.4 mg= 1 tab(s), Sublingual, q5min, PRN NovoLIN N, 35 unit(s)= 0.35 mL, Subcutaneous, BIDAC oxyCODONE 5 mg oral tablet ( IMMEDIATE release ), 5 mg= 1 tab(s), Oral, q4h, PRN oxyCODONE 5 mg oral tablet ( IMMEDIATE release ), 10 mg= 2 tab(s), Oral, q4h, PRN pregabalin 100 mg oral capsule, 100 mg= 2 cap(s), Oral, BID Vyvanse, 50 mg= 1 cap(s), Oral, qAM Zofran, 4 mg= 2 mL, IV Push, q4h, PRN Zofran ODT, 4 mg= 1 tab(s), Oral, q6h, PRN Home albuterol MDI (90 mcg/inh) CFC free inhalation aerosol Altace 2.5 mg oral capsule, 2.5 mg= 1 cap(s), Oral, qDay, 11 refills Ambien 10 mg oral tablet, 10 mg= 1 tab(s), Oral, qHS Aspirin Low Dose 81 mg oral tablet, chewable, 81 mg= 1 tab(s), Chewed, qDay, 11 refills Brilinta (ticagrelor) 60 mg oral tablet, 60 mg= 1 tab(s), Oral, BID, 3 refills ezetimibe 10 mg oral tablet fenofibrate 160 mg oral tablet, 160 mg= 1 tab(s), Oral, qDayM, New Prescription Freestyle [place], See Instructions Freestyle [place] 14 day sensor, See Instructions, 5 refills HumuLIN 70/30 KwikPen 70 units-30 units/mL subcutaneous suspension, 35 unit(s), Subcutaneous, BIDAC, 1 refills Lipitor 80 mg oral tablet, 80 mg= 1 tab(s), Oral, qDay, 3 refills metoprolol tartrate 50 mg oral tablet, 50 mg= 1 tab(s), Oral, BID nitroglycerin 0.4 mg sublingual tablet, 0.4 mg= 1 tab(s), Sublingual, q5min, PRN, 11 refills pregabalin 100 mg oral capsule, 100 mg= 1 cap(s), Oral, BID Toprol-XL 200 mg oral tablet, extended release, 200 mg= 1 tab(s), Oral, qDay, 3 refills, Not taking Allergies Midol Regular (numbness) Strawberries Toradol (migrains) codeine Social History Smoking Status - 12/14/2013 Current every day smoker Alcohol Use: Never., 10/23/2020 Home/Environment Marital Status: Unmarried., 10/23/2020 Nutrition/Health Caffeine intake amount: none., 10/28/2021 Substance Abuse Use: Never., 10/23/2020 Tobacco Nicotine Use: Quit March 2022., 06/02/2022 Family History Asthma: Mother, Sister, Brother and Maternal Grandmother. Cancer: Mother and Maternal Grandmother. Diabetes: Maternal Grandmother. Diabetes: Maternal Grandmother. Heart attack: Father and Grandparent. Renal disease: Maternal Grandmother. Sudden : Father. Immunizations No qualifying data available. Digitally Signed by ATIYA PAUL MD on 08/28/2022 10:25 AM Digitally Signed by ATIYA PAUL MD on 08/28/2022 03:[address] [facility] 08-27-2022 History and physical note Date of Service 08/27/22 Chief Complaint Chest pain History of Present Illness 37-year-old female with PMHx CAD, costochondritis, morbid obesity, DM 2, history of bariatric surgery presents to hospital as a transfer from ED for chest pain. History obtained by patient, ED physician, chart review. Patient states that in the morning she was in the kitchen making food and not doing any strenuous when she started to have central chest pressure and shortness of breath. States it was similar to her previous FL which required stenting. Also with intermittent fevers up to 101. She was diagnosed recently with an ear infection and placed on antibiotics. Denies dysuria or diarrhea. Endorses chronic vomiting with 4 episodes of vomiting today. Intermittently bloody. She states that is not new for her. Denies any other acute issues. Labs and imaging in the ED: CXR shows no acute disease. No significant change. CTA PE protocol showed no PE. CBC within normal limits. Troponin negative x3. BMP normal. Urine negative. CMP shows creatinine 1.1. Globulin 4.2. She was given Dilaudid and fentanyl. Nitro x2. Case was discussed for admission with their hospitalist. Case also discussed with their coat padder. [facility] that patient would most likely best be served by a facility capable of doing emergent catheterization if she needed. Discussed with Dr. Curtis - patient to be admitted to medicine. Review of Systems Pertinent review of systems are included in the HPI. All other systems were reviewed and are negative for acute changes from the patient's baseline. Physical Exam Vitals and Measurements HT: 162.6 cm WT: 118.2 kg BMI: 44.71 Weight Dosing Weight: 118.2 kg (08/27/22) GA: Alert and oriented x3, no acute distress Abd: Not distended HEENT: NCAT, sclera anicteric, oral mucosa moist Pulmonary: No tachypnea or use of accessory respiratory muscles. MSK: No gross deformities. She does have chest pain on palpation at the lower third of the chest bilaterally. Cardiovascular: Not tachycardic Skin: Warm and dry Neuro: Spontaneous movement of all extremities, cranial nerves II through XII grossly normal Psychiatric: Thought content, associations, attention are all normal. Assessment/Plan Chest pain. Concern for cardiac etiology at outside facility. Case discussed with cardiology and it was recommended for admission to medicine with consideration for stress test and consultation to cardiology. On my evaluation, troponin was negative x3 and ECG normal x2. Will defer additional cardiac work-up to cardiology. She does have some chest pain on palpation and history of costochondritis. Also with consistent vomiting, esophageal etiology may be considered. Cardiology consultation. Check additional troponin. Vomiting. History of bariatric surgery. She reports chronic vomiting with 4 episodes over the past day. Carafate as needed for abdominal discomfort. Zofran as needed CAD. As above. We will continue her home Brilinta, ramipril, as needed nitroglycerin, metoprolol, fenofibrate, ezetimibe, atorvastatin, aspirin. Chronic pain. Patient endorses ongoing chronic pain. Continue pregabalin. As needed opioid medications for acute treatment of chest pain. Diabetes. Chronic. Controlled. Continue NPH at home schedule. Medications were not verified by pharmacy at the time of this dictation. Reconciliation to be completed once medications are verified; will address additional chronic medical problems at that time. DVT prophylaxis: SCDs Note dictated using voice recognition software and may contain typographical errors. DVT prophylaxis: SCDs Note dictated using voice recognition software and may contain typographical errors. Problem List/Past Medical History Ongoing Coronary disease Costochondritis Dyspnea Elevated glucose Hyperlipidemia Morbid obesity Overweight Type II diabetes mellitus Vasovagal near syncope Historical No qualifying data Procedure/Surgical History Gastric sleeve: 05/20/22 Cardiovascular stress testin12/12/21 Prescription event monitorin10/30/21 Cardiac catheterization: 05/23/21 Echocardiogram: 08/27/20 PTCA - Percutaneous transluminal coronary angioplasty: 08/26/20 Cardiac catheterization: 08/26/20 Cholecystectomy;: 05/15/15 delivery Medications Home Medications (18) Active acetaminophen-hydrocodone 325 mg-5 mg oral tablet 1 tab(s), Oral, BID albuterol MDI (90 mcg/inh) CFC free inhalation aerosol Altace 2.5 mg oral capsule 2.5 mg = 1 cap(s), Oral, qDay Aspirin Low Dose 81 mg oral tablet, chewable 81 mg = 1 tab(s), Chewed, qDay Brilinta (ticagrelor) 60 mg oral tablet 60 mg = 1 tab(s), Oral, BID ezetimibe 10 mg oral tablet fenofibrate 160 mg oral tablet 160 mg = 1 tab(s), Oral, qDayM Freestyle [place] See Instructions Freestyle [place] 14 day sensor See Instructions HumuLIN 70/30 KwikPen 70 units-30 units/mL subcutaneous suspension 35 unit(s), Subcutaneous, BIDAC Lipitor 80 mg oral tablet 80 mg = 1 tab(s), Oral, qDay Lovaza 1000 mg oral capsule 1,000 mg = 1 cap(s), Oral, BID nitroglycerin 0.4 mg sublingual tablet 0.4 mg = 1 tab(s), PRN, Sublingual, q5min ondansetron 4 mg oral tablet pregabalin 100 mg oral capsule 100 mg = 1 cap(s), Oral, BID Toprol-XL 200 mg oral tablet, extended release 200 mg = 1 tab(s), Oral, qDay traZODone 150 mg oral tablet Vyvanse 50 mg oral capsule 50 mg = 1 cap(s), Oral, qAM Allergies Midol Regular (numbness) Strawberries Toradol (migrains) codeine Social History Smoking Status - 12/14/2013 Current every day smoker Alcohol Use: Never., 10/23/2020 Home/Environment Marital Status: Unmarried., 10/23/2020 Nutrition/Health Caffeine intake amount: none., 10/28/2021 Substance Abuse Use: Never., 10/23/2020 Tobacco Nicotine Use: Quit March 2022., 06/02/2022 Family History Asthma: Mother, Sister, Brother and Maternal Grandmother. Cancer: Mother and Maternal Grandmother. Diabetes: Maternal Grandmother. Diabetes: Maternal Grandmother. Heart attack: Father and Grandparent. Renal disease: Maternal Grandmother. Sudden : Father. Immunizations No qualifying data available. Code Status Code Status - Ordered -- 08/27/22 23:40:00 EDT, Full Code, Constant Order Digitally Signed by FRANCHESKA DIOR MD on 08/27/2022 11:[address] [facility] Chest pain. Concern for card iac etiology at outside facility. Case discussed with cardiology and it was recommended for admission to medicine with consideration for stress test and consultation to cardiology. On my evaluation, troponin was negative x3 and ECG normal x2. Will defer additional cardiac work-up to cardiology. She does have some chest pain on palpation and history of costochondritis. Also with consistent vomiting, esophageal etiology may be considered. Cardiology consultation. Check additional troponin. Vomiting. History of bariatric surgery. She reports chronic vomiting with 4 episodes over the past day. Carafate as needed for abdominal discomfort. Zofran as needed CAD. As above. We will continue her home Brilinta, ramipril, as needed nitroglycerin, metoprolol, fenofibrate, ezetimibe, atorvastatin, aspirin. Chronic pain. Patient endorses ongoing chronic pain. Continue pregabalin. As needed opioid medications for acute treatment of chest pain. Diabetes. Chronic. Controlled. Continue NPH at home schedule. Medications were not verified by pharmacy at the time of this dictation. Reconciliation to be completed once medications are verified; will address additional chronic medical problems at that time. DVT prophylaxis: SCDs Note dictated using voice recognition software and may contain typographical errors. DVT prophylaxis: SCDs Note dictated using voice recognition software and may contain typographical errors. Future Scheduled Tests Laboratory* Thyroid Stimulating Hormone 10/28/21 * Complete Blood Count 10/28/21 * Lipid Profile 10/28/21 * Lipid Profile 12/02/22 * Complete Metabolic Panel 10/28/21 [facility] 06-26-2023 [facility] CONSULTATION REPORT NAME ACCOUNT SEX AGE ADMIT DISCHARGE PT MED. RECORD# NUMBER DATE DATE LUIS COOK [id number] Deo 37 08/24/2022 08/24/2022 Stu Alvarez [id number] ROOM: DATE OF : 1985 DICTATING PHYSICIAN: Alexei Caldera PROGRESS NOTE HISTORY OF PRESENT ILLNESS: The patient is seen today on August 24, 2022 at the [facility] in [facility]. She continues to complain of abdominal pain, though doing better. She has had a banding for weight loss 3 months ago. She was placed on Franklin at higher dose, and has been on Lyrica for the neuropathic pain in the lower extremity for years. She has lost 30 pounds with the weight loss surgery, and states her only problem is when she eats she often has emesis. This apparently is a known complication that requires some time for the smaller stomach to stretch . The patient is doubling up on her Franklin, but is slowly improved. We suggested weaning her opioids. She states she felt that when she took the Percocet she only needed one or 2 Percocet a day to function. 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 REVIEW OF SYSTEMS: The remainder of review of systems, intake form, pain questionnaire, nursing assessment, and OARRS report were reviewed. It is noted that the patient has restarted smoking. We discussed she needs to quit this. The patient also states she has rheumatoid arthritis, and has not had any shelving supervisor consultation, but wants to wait until this surgery is healed, and then she will ask her primary care physician for recommendations. PHYSICAL EXAMINATION: GENERAL APPEARANCE: Reveals a pleasant 37-year-old female who is alert x3. VITAL SIGNS: She is 269 pounds and 5 foot 4. Blood pressure 100/70, pulse 85, respirations 16. Her pain level is a 7 out of 10 today. She ambulates in the room without ambulatory aids. She has full cervical range of motion. HEART: Heart is regular. Peripheral pulses are maintained. LUNGS: Lungs are clear in all lung de leon. ABDOMEN: Rotund with multiple well-healed scars noted, which are mildly tender, but no evidence of any hernias. EXTREMITIES: Lumbar range of motion is full. Straight leg raising is negative. ASSESSMENT: 1. Morbidly obese, 30 pound weight loss since gastric surgery. 2. Rheumatoid arthritis by history. 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 Neuropathic pain lower extremity/etiology unknown and treated by primary care with Ashleyrica. PLAN: We did discuss that Lyrica could in fact cause some weight gain. She has to follow that as well, and that she needs to quit smoking now that she is on the right track from a physical standpoint by losing weight. We will discontinue the Franklin, change her to Percocet once or twice a day if needed for pain, and have her followup in 3 months. We will try to wean her off the opioids. The patient agrees to the plan. 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 MICRO - Microbiology PROCEDURE: Affirm Pathogens DNA Direct Probe [*1] SOURCE: Vaginal Fluid BODY SITE: Vagina COLLECTED DATE/TIME: 07/17/2022 10:00 EDT RECEIVED DATE/TIME: 07/18/2022 19:56 EDT START DATE/TIME: 07/18/2022 19:56 EDT FREE TEXT SOURCE: FINAL REPORTS Final Report [] Verified Date/Time/Personnel: 07/19/2022 11:30 EDT Gardnerella vaginalis DNA Probe Positive Trichomonas vaginalis DNA Probe Negative Rae species DNA Probe Negative Performing Locations *1: This test was performed at: [facility], [address] [place] [address], [id number] , [facility] ([place])06-22-2022 [facility] PROGRESS NOTE POST WEIGHT LOSS SURGERY FOLLOW UP Patient: Marvin Cook Service Date: 06/22/2022 Patient is 1 month(s) s/p Sleeve Gastrectomy Today's Metrics: Post-Surgical Weight Loss Date: 06/22/22 Height: 5' 4 (162.6 cm) Weight: 287 lb 9.6 oz (130 kg) BMI: 49.36 Weight Change: -8.4 lbs Total Weight Change: -18.6 lbs % EBWL: 10% Comments: 1M Pre-op Weight Metrics: Post-op Weight Metrics: %EBWL: % EBWL: 10% Weight Change Since Last Visit: Weight Change: -8.4 lbs Weight Change from Highest Pre-op Weight: Total Weight Change: -18.6 lbs Patient has the following questions: work question Pain: Patient rates pain on scale 0-10 as: 5 Exercise Compliance: Exercising: yes If yes: Type: walking and treadmill Times per week: 3-4 Min per session: 20-60 Falls Risk Assessment Patient does take medications which affect BP or mental status Patient does not have newly prescribed or changed dosage of medications within past 30 days which affect BP or mental status Patient has not fallen in the past 2 months Patient does not demonstrate unsteady gait Patient uses the following ambulatory assistive devices: none Patient states the presence of the following traits which increases risk of fall: none Patient is not on home O2 Labs Completed: no - If NO, patient instructed to get labs drawn today or CECI [facility] YES[facility] If yes see Labs Tab Labs completed at Non[facility] facility? no If yes see Encounters Tab - Orders only - Historical Provider - Date: Completed by: [facility]04-24-2023 History of Present illness Narrative* Saman Rivas, - 06/22/2022 9:30 AM EDT HPI, PHYSICAL EXAMINATION & PLAN POST-OP HPI: Patient here today for 1 month post-weight loss surgery follow up LSG The patient is feeling well. Denies nausea, vomiting, dysphagia, or any GERD Sx. Currently is on a PPI. Patient states diet and exercise is going fairly well. Currently is eating 65-75 gm/day protein, and is compliant with prescribed multivitamins and supplements. Review of Systems Vital signs are stable. Labs were Not completed All labs were: pending Physical Examination: BP 138/80 Pulse 72 Temp 36.5 C (97.7 F) Resp 16 Ht 5' 4 (1.626 m) Comment: bcc Wt 287 lb9.6 oz (130 kg) BMI 49.37 kg/m General: This patient is awake, alert, and oriented, and is in no apparent distress. Respiratory: Non-labored breathing Abdomen: Obese, soft, non-tender, non-distended without masses/ No evidence of abdominal hernia / Incisions consistent with previous surgeries. Extremities: No cyanosis, clubbing or edema/ No calf tenderness/No restrictions of movement, is ambulatory without assistance. Neurological: Intact x 4 extremities, no focal deficits notes. Skin: No rashes or lesions noted. Rectal: Deferred Surgical site: is:clean, dry, intact, and nontender Drainage from surgical site: none Patient does not have a superficial incisional SSI Current Medications: Patient's Medications New Prescriptions No medications on file Previous Medications ATORVASTATIN (LIPITOR) 80 MG TABLET Take 80 mg by mouth daily. BLOOD GLUCOSE MONITORING SUPPL (ONE TOUCH ULTRA 2) W/DEVICE KIT USE DIRECTED CALCIUM CITRATE PO Take 500 mg by mouth 3 times daily. CONTINUOUS BLOOD GLUC HAND SHOE CUTTER (FREESTYLE CAROLA 14 DAY READER) DEVICE CONTINUOUS BLOOD GLUC SENSOR (FREESTYLE CAROLA 14 DAY SENSOR) MISC CYANOCOBALAMIN (B-12) [address] 1 tablet under the tongue daily. EQ ASPIRIN LOW DOSE 81 MG CHEWABLE TABLET CHEW AND SWALLOW 1 TABLET BY MOUTH ONCE DAILY EZETIMIBE (ZETIA) 10 MG TABLET 10 mg daily. FENOFIBRATE (TRICOR) 145 MG TABLET Take 145 mg by mouth daily. INSULIN LISPRO PROTAMINE-INSULIN LISPRO (HUMALOG MIX 50/50 KWIKPEN) (50-50) 100 UNIT/ML INJECTION Inject under the skin 2 times daily (with meals). Sliding Scale 150-200 INSULIN NPH-INSULIN REGULAR (HUMULIN 70/30 KWIKPEN) (70-30) 100 UNIT/ML INJECTION Inject 35 Units under the skin in the morning and 35 Units in the evening. Inject before meals. METOPROLOL SUCCINATE XL (TOPROL-XL) 200 MG 24 HR TABLET Take 200 mg by mouth daily. MULTIPLE VITAMINS-IRON (MULTIVITAMIN/IRON PO) Take 1 mg by mouth daily. NITROGLYCERIN (NITROSTAT) 0.4 MG SL TABLET 0.4 mg. NYSTATIN (MYCOSTATIN) 344772 UNIT/ML SUSPENSION Swish and spit 5 mL (500,000 Units) 3 times daily. Swish and spit 5 mLs by mouth three times daily for 10 days. OMEGA-3 (FISH OIL) 1000 MG CAPSULE OMEPRAZOLE (PRILOSEC) [address] CAPSULE Take 1 capsule (20 mg) by mouth daily. Do not crush or chew. ONDANSETRON (ZOFRAN) 4 MG TABLET Take 1 tablet (4 mg) by mouth every 8 hours as needed for nausea or vomiting. PEDIATRIC MULTIVITAMINS-IRON PO Take 1 tablet by mouth daily. PEN NEEDLE, DIABETIC 31G X 8 MM MISC USE TWICE A DAY PREGABALIN (LYRICA) 100 MG CAPSULE 100 mg 2 times daily. RAMIPRIL (ALTACE) 2.5 MG CAPSULE 2.5 mg daily. TICAGRELOR (BRILINTA) 90 MG TABLET Take 60 mg by mouth 2 times daily. TRAZODONE (DESYREL) 150 MG TABLET TAKE 1 TABLET BY MOUTH AT BEDTIME VYVANSE 40 MG CAPSULE Take 40 mg by mouth in the morning. Modified Medications No medications on file Discontinued Medications No medications on file Medications ordered during this encounter: Outpatient Encounter Medications as of 06/22/2022 Medication Sig Dispense Refill atorvastatin (Lipitor) 80 MG tablet Take 80 mg by mouth daily. Blood Glucose Monitoring Suppl (ONE TOUCH ULTRA 2) w/Device kit USE DIRECTED CALCIUM CITRATE PO Take 500 mg by mouth 3 times daily. Continuous Blood Gluc Career Development Counselor (FreeStyle Carola 14 Day [place]) device Continuous Blood Gluc Sensor (FreeStyle Carola 14 Day Sensor) misc Cyanocobalamin (B-12) [address] 1 tablet under the tongue daily. EQ Aspirin Low Dose 81 MG chewable tablet CHEW AND SWALLOW 1 TABLET BY MOUTH ONCE DAILY ezetimibe (Zetia) 10 MG tablet 10 mg daily. fenofibrate (Tricor) 145 MG tablet Take 145 mg by mouth daily. insulin lispro protamine-insulin lispro (HumaLOG MIX 50/50 KWIKPEN) (50-50) 100 UNIT/ML injection Inject under the skin 2 times daily (with meals). Sliding Scale 150-200 metoprolol succinate XL (Toprol-XL) 200 MG 24 hr tablet Take 200 mg by mouth daily. Multiple Vitamins-Iron (MULTIVITAMIN/IRON PO) Take 1 mg by mouth daily. nitroglycerin (Nitrostat) 0.4 MG SL tablet 0.4 mg. omeprazole (PriLOSEC) [address] capsule Take 1 capsule (20 mg) by mouth daily. Do not crush or chew.(Patient taking differently: Take by mouth daily. Do not crush or chew.) 90 capsule 1 ondansetron (Zofran) 4 MG tablet Take 1 tablet (4 mg) by mouth every 8 hours as needed for nausea or vomiting. 90 tablet 2 PEDIATRIC MULTIVITAMINS-IRON PO Take 1 tablet by mouth daily. pen needle, diabetic 31G X 8 MM misc USE TWICE A DAY pregabalin (Lyrica) 100 MG capsule 100 mg 2 times daily. ramipril (Altace) 2.5 MG capsule 2.5 mg daily. ticagrelor (Brilinta) 90 MG tablet Take 60 mg by mouth 2 times daily. traZODone (Desyrel) 150 MG tablet TAKE 1 TABLET BY MOUTH AT BEDTIME [] ergocalciferol (Vitamin D2) 1.25 MG (53900 UT) capsule Take 1 capsule (1.25 mg) by mouth 1 (one) time per week for 8 doses. Take one capsule by mouth weekly for 8 weeks. 8 capsule 0 insulin NPH-insulin regular (HumuLIN 70/30 KWIKPEN) (70-30) 100 UNIT/ML injection Inject 35 Units under the skin in the morning and 35 Units in the evening. Inject before meals. nystatin (Mycostatin) 881770 UNIT/ML suspension Swish and spit 5 mL (500,000 Units) 3 times daily. Swish and spit 5 mLs by mouth three times daily for 10 days. (Patient not taking: Reported on 06/22/2022) 150 mL 1 omega-3 (Fish Oil) 1000 MG capsule [] oxyCODONE-acetaminophen (Percocet) 5-325 MG tablet Take 1 tablet by mouth every 6 hours as needed for severe pain (7-10) for up to 7 days. 28 tablet 0 Vyvanse 40 MG capsule Take 40 mg by mouth in the morning. No facility-administered encounter medications on file as of 06/22/2022. Orders Placed This Encounter Procedures Zinc Folate Iron Ferritin Magnesium Vitamin B12 Comprehensive metabolic panel CBC Visit Diagnoses: 1. Deficiency of multiple nutrient elements 2. Hyperlipidemia, unspecified hyperlipidemia type 3. Type 2 diabetes mellitus with diabetic neuropathy, unspecified whether long-term insulin use (HCC) 4. Primary hypertension 5. Morbid obesity with BMI of 45.0-49.9, adult (HCC) Plan: 1). Cleared for all activity, no weight restrictions. All incisions healed. 2). Continue PPI until 6 month office visit 3). Labs: pending 4). F/u at 3 month office visit with standard labs 5). Progressing diet as tolerated per RD 6). Psych concerns: No 7). Dysphagia: No 8). If patient is a woman of childrearing age- 18-50. We discussed the importance of contraception during the first 12-18 months post op, and we discussed that fertility will increase following the procedure. Advised patient to discuss with her OBGYN regarding contraception. Patient counseled with good understanding verbalized. 9). Weight loss: Post-op Weight Metrics: %EBWL: % EBWL: 10% Weight Change Since Last Visit: Weight Change: -8.4 lbs Weight Change from Highest Pre-op Weight: Total Weight Change: -18.6 lbs Doing well No new issues. Patient met with the dietitian today to review are vitamin and protein recommendations. Increase activity as recommended, the wounds are healed, no evidence of abdominal wall hernias. No nausea vomiting or dysphagia noted. Appropriate bowel function, discussed with her regarding contacting us for any questions or concerns. The lab slip was signed for the next visit were signed. I personally performed the evaluation and management of Marvin Cook in the development of a treatment plan for this patient. I personally interviewed the patient and performed an individual physical examination. In addition, I discussed the patient's condition and treatment options with them. Ihave also reviewed and agree with the past medical, family and social history unless otherwise noted. All of the patient's questions were answered. Patient Care Team: Peyton Barba as PCP - General Maritza Flaherty, RN as Registered Nurse Saman Rivas DO as Surgeon (General Surgery) * Caryn Salazar RD - 06/22/2022 9:30 AM EDT [facility] 1 MONTH POST-OPERATIVE DIETITIAN VISIT Date 06/22/22 Current diet reviewed with patient. Soft and maintenance diets discussed and handouts provided. Patient's weight decreased by: 18.6 lbs Patient does not consume 5-6 small meals daily: 3 Patient s portions are adequate for current diet: 1/2 cup Protein requirements discussed- currently consuming 65 grams of protein daily. Current protein sources: Mac and cheese, soups - noodle soup, tuna, yogurt, protein powder, proteinshake x2/day Recommendations: Notes she is throwing up after eating. Stated saucy foods, spaghetti and mac and cheese are leading to throwing up. Patient to have smaller, more frequent meals and snacks and make main emphasis of meal protein. Discussed decreasing intake of noodles to prevent getting sick. Fluid requirements discussed. Current Fluid Intake: >64 fl oz - drinks + popsicles Patient does drink sugar-free, caffeine-free and carbonation-free fluids only. Patient does not wait 30 minutes before and after meals to drink May have a sip with meals to help with dry foods Exercise activities discussed. Patient does currently exercising. She was reminded that regular exercise is critical part of a successful outcome following weight loss surgery. Behavioral/Emotional changes reviewed. Patient does feel comfortable with changes in eating behaviors and associated emotional changes. She was reminded that psychological counseling is available through the [facility] post-operatively. The importance of vitamin supplements has been reviewed and the patient is taking the following: -Multivitamin with minerals and iron -Calcium -Vitamin B12 -Vitamin D3 -Other: Recent Nutrient Concerns and Vitamin Supplementation Changes: No new labs to review at this time. Patient does reports compliance with V/M protocol. Notes itching from supplements in evening or an interaction from medications. Was not able to determine which ones could be causing this. Takes Calcium and B12 in AM, afternoon takes calcium, dinner takes Biotin and MVI, at bedtime takes last Calcium. Notes/Comments: Patient to start maintenance diet. Patient instructed to call or Mychart with any questions or concerns. Patient to have smaller, more frequent meals and snacks and avoid noodles right now, as these are causing her to get sick. RD will check in in a few weeks. Visit completed by: Caryn Salazar MS, RDN, LD * Maritza Victoria - 06/22/2022 9:30 AM EDT [facility] PROGRESS NOTE POST WEIGHT LOSS SURGERY FOLLOW UP Patient: Marvin Cook Service Date: 06/22/2022 Patient is 1 month(s) s/p Sleeve Gastrectomy Today's Metrics: Post-Surgical Weight Loss Date: 06/22/22 Height: 5' 4 (162.6 cm) Weight: 287 lb 9.6 oz (130 kg) BMI: 49.36 Weight Change: -8.4 lbs Total Weight Change: -18.6 lbs % EBWL: 10% Comments: 1M Pre-op Weight Metrics: Post-op Weight Metrics: %EBWL: % EBWL: 10% Weight Change Since Last Visit: Weight Change: -8.4 lbs Weight Change from Highest Pre-op Weight: Total Weight Change: -18.6 lbs Patient has the following questions: work question Pain: Patient rates pain on scale 0-10 as: 5 Exercise Compliance: Exercising: yes If yes: Type: walking and treadmill Times per week: 3-4 Min per session: 20-60 Falls Risk Assessment Patient does take medications which affect BP or mental status Patient does not have newly prescribed or changed dosage of medications within past 30 days which affect BP or mental status Patient has not fallen in the past 2 months Patient does not demonstrate unsteady gait Patient uses the following ambulatory assistive devices: none Patient states the presence of the following traits which increases risk of fall: none Patient is not on home O2 Labs Completed: no - If NO, patient instructed to get labs drawn today or CECI If YES: Labs completed at [facility]? no If yes see Labs Tab Labs completed at Non-[facility] facility? no If yes see Encounters Tab - Orders only - Historical Provider - Date: Completed by: Maritza Victoria documented in this encounterSSamaritan [facility] Health [id number] History of Present illness Narrative* Saman Rivas DO - 06/22/2022 9:30 AM EDT HPI, PHYSICAL EXAMINATION & PLAN POST-OP HPI: Patient here today for 1 month post-weight loss surgery follow up LSG The patient is feeling well. Denies nausea, vomiting, dysphagia, or any GERD Sx. Currently is on a PPI. Patient states diet and exercise is going fairly well. Currently is eating 65-75 gm/day protein, and is compliant with prescribed multivitamins and supplements. Review of Systems Vital signs are stable. Labs were Not completed All labs were: pending Physical Examination: BP 138/80 Pulse 72 Temp 36.5 C (97.7 F) Resp 16 Ht 5' 4 (1.626 m) Comment: bcc Wt 287 lb9.6 oz (130 kg) BMI 49.37 kg/m General: This patient is awake, alert, and oriented, and is in no apparent distress. Respiratory: Non-labored breathing Abdomen: Obese, soft, non-tender, non-distended without masses/ No evidence of abdominal hernia / Incisions consistent with previous surgeries. Extremities: No cyanosis, clubbing or edema/ No calf tenderness/No restrictions of movement, is ambulatory without assistance. Neurological: Intact x 4 extremities, no focal deficits notes. Skin: No rashes or lesions noted. Rectal: Deferred Surgical site: is:clean, dry, intact, and nontender Drainage from surgical site: none Patient does not have a superficial incisional SSI Current Medications: Patient's Medications New Prescriptions No medications on file Previous Medications ATORVASTATIN (LIPITOR) 80 MG TABLET Take 80 mg by mouth daily. BLOOD GLUCOSE MONITORING SUPPL (ONE TOUCH ULTRA 2) W/DEVICE KIT USE DIRECTED CALCIUM CITRATE PO Take 500 mg by mouth 3 times daily. CONTINUOUS BLOOD GLUC HAND SHOE CUTTER (FREESTYLE CAROLA 14 DAY READER) DEVICE CONTINUOUS BLOOD GLUC SENSOR (FREESTYLE [place] 14 DAY SENSOR) MISC CYANOCOBALAMIN (B-12) [address] 1 tablet under the tongue daily. EQ ASPIRIN LOW DOSE 81 MG CHEWABLE TABLET CHEW AND SWALLOW 1 TABLET BY MOUTH ONCE DAILY EZETIMIBE (ZETIA) 10 MG TABLET 10 mg daily. FENOFIBRATE (TRICOR) 145 MG TABLET Take 145 mg by mouth daily. INSULIN LISPRO PROTAMINE-INSULIN LISPRO (HUMALOG MIX 50/50 KWIKPEN) (50-50) 100 UNIT/ML INJECTION Inject under the skin 2 times daily (with meals). Sliding Scale 150-200 INSULIN NPH-INSULIN REGULAR (HUMULIN 70/30 KWIKPEN) (70-30) 100 UNIT/ML INJECTION Inject 35 Units under the skin in the morning and 35 Units in the evening. Inject before meals. METOPROLOL SUCCINATE XL (TOPROL-XL) 200 MG 24 HR TABLET Take 200 mg by mouth daily. MULTIPLE VITAMINS-IRON (MULTIVITAMIN/IRON PO) Take 1 mg by mouth daily. NITROGLYCERIN (NITROSTAT) 0.4 MG SL TABLET 0.4 mg. NYSTATIN (MYCOSTATIN) [id number] UNIT/ML SUSPENSION Swish and spit 5 mL (500,000 Units) 3 times daily. Swish and spit 5 mLs by mouth three times daily for 10 days. OMEGA-3 (FISH OIL) 1000 MG CAPSULE OMEPRAZOLE (PRILOSEC) [address] CAPSULE Take 1 capsule (20 mg) by mouth daily. Do not crush or chew. ONDANSETRON (ZOFRAN) 4 MG TABLET Take 1 tablet (4 mg) by mouth every 8 hours as needed for nausea or vomiting. PEDIATRIC MULTIVITAMINS-IRON PO Take 1 tablet by mouth daily. PEN NEEDLE, DIABETIC 31G X 8 MM MISC USE TWICE A DAY PREGABALIN (LYRICA) 100 MG CAPSULE 100 mg 2 times daily. RAMIPRIL (ALTACE) 2.5 MG CAPSULE 2.5 mg daily. TICAGRELOR (BRILINTA) 90 MG TABLET Take 60 mg by mouth 2 times daily. TRAZODONE (DESYREL) 150 MG TABLET TAKE 1 TABLET BY MOUTH AT BEDTIME VYVANSE 40 MG CAPSULE Take 40 mg by mouth in the morning. Modified Medications No medications on file Discontinued Medications No medications on file Medications ordered during this encounter: Outpatient Encounter Medications as of 06/22/2022 Medication Sig Dispense Refill atorvastatin (Lipitor) 80 MG tablet Take 80 mg by mouth daily. Blood Glucose Monitoring Suppl (ONE TOUCH ULTRA 2) w/Device kit USE DIRECTED CALCIUM CITRATE PO Take 500 mg by mouth 3 times daily. Continuous Blood Gluc Career Development Counselor (FreeStyle Carola 14 Day [place]) device Continuous Blood Gluc Sensor (FreeStyle [place] 14 Day Sensor) [facility] [place] Cyanocobalamin (B-12) [address] 1 tablet under the tongue daily. EQ Aspirin Low Dose 81 MG chewable tablet CHEW AND SWALLOW 1 TABLET BY MOUTH ONCE DAILY ezetimibe (Zetia) 10 MG tablet 10 mg daily. fenofibrate (Tricor) 145 MG tablet Take 145 mg by mouth daily. insulin lispro protamine-insulin lispro (HumaLOG MIX 50/50 KWIKPEN) (50-50) 100 UNIT/ML injection Inject under the skin 2 times daily (with meals). Sliding Scale 150-200 metoprolol succinate XL (Toprol-XL) 200 MG 24 hr tablet Take 200 mg by mouth daily. Multiple Vitamins-Iron (MULTIVITAMIN/IRON PO) Take 1 mg by mouth daily. nitroglycerin (Nitrostat) 0.4 MG SL tablet 0.4 mg. omeprazole (PriLOSEC) [address] capsule Take 1 capsule (20 mg) by mouth daily. Do not crush or chew.(Patient taking differently: Take by mouth daily. Do not crush or chew.) 90 capsule 1 ondansetron (Zofran) 4 MG tablet Take 1 tablet (4 mg) by mouth every 8 hours as needed for nausea or vomiting. 90 tablet 2 PEDIATRIC MULTIVITAMINS-IRON PO Take 1 tablet by mouth daily. pen needle, diabetic 31G X 8 MM misc USE TWICE A DAY pregabalin (Lyrica) 100 MG capsule 100 mg 2 times daily. ramipril (Altace) 2.5 MG capsule 2.5 mg daily. ticagrelor (Brilinta) 90 MG tablet Take 60 mg by mouth 2 times daily. traZODone (Desyrel) 150 MG tablet TAKE 1 TABLET BY MOUTH AT BEDTIME [] ergocalciferol (Vitamin D2) 1.25 MG (95349 UT) capsule Take 1 capsule (1.25 mg) by mouth 1 (one) time per week for 8 doses. Take one capsule by mouth weekly for 8 weeks. 8 capsule 0 insulin NPH-insulin regular (HumuLIN 70/30 KWIKPEN) (70-30) 100 UNIT/ML injection Inject 35 Units under the skin in the morning and 35 Units in the evening. Inject before meals. nystatin (Mycostatin) 289150 UNIT/ML suspension Swish and spit 5 mL (500,000 Units) 3 times daily. Swish and spit 5 mLs by mouth three times daily for 10 days. (Patient not taking: Reported on 06/22/2022) 150 mL 1 omega-3 (Fish Oil) 1000 MG capsule [] oxyCODONE-acetaminophen (Percocet) 5-325 MG tablet Take 1 tablet by mouth every 6 hours as needed for severe pain (7-10) for up to 7 days. 28 tablet 0 Vyvanse 40 MG capsule Take 40 mg by mouth in the morning. No facility-administered encounter medications on file as of 06/22/2022. Orders Placed This Encounter Procedures Zinc Folate Iron Ferritin Magnesium Vitamin B12 Comprehensive metabolic panel CBC Visit Diagnoses: 1. Deficiency of multiple nutrient elements 2. Hyperlipidemia, unspecified hyperlipidemia type 3. 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 Primary hypertension 5. Morbid obesity with BMI of 45.0-49.9, adult ([facility]) Plan: 1). Cleared for all activity, no weight restrictions. All incisions healed. 2). Continue PPI until 6 month office visit 3). Labs: pending 4). F/u at 3 month office visit with standard labs 5). Progressing diet as tolerated per RD 6). Psych concerns: No 7). Dysphagia: No 8). If patient is a woman of childrearing age- 18-50. We discussed the importance of contraception during the first 12-18 months post op, and we discussed that fertility will increase following the procedure. Advised patient to discuss with her OBGYN regarding contraception. Patient counseled with good understanding verbalized. 9). Weight loss: Post-op Weight Metrics: %EBWL: % EBWL: 10% Weight Change Since Last Visit: Weight Change: -8.4 lbs Weight Change from Highest Pre-op Weight: Total Weight Change: -18.6 lbs Doing well No new issues. Patient met with the dietitian today to review are vitamin and protein recommendations. Increase activity as recommended, the wounds are healed, no evidence of abdominal wall hernias. No nausea vomiting or dysphagia noted. Appropriate bowel function, discussed with her regarding contacting us for any questions or concerns. The lab slip was signed for the next visit were signed. I personally performed the evaluation and management of Marvin Cook in the development of a treatment plan for this patient. I personally interviewed the patient and performed an individual physical examination. In addition, I discussed the patient's condition and treatment options with them. Ihave also reviewed and agree with the past medical, family and social history unless otherwise noted. All of the patient's questions were answered. Patient Care Team: Peyton Barba as PCP - General Maritza Flaherty, RN as Registered Nurse Saman Rivas DO as Surgeon (General Surgery) * Caryn Salazar, RD - 06/22/2022 9:30 AM EDT [facility] 1 MONTH POST-OPERATIVE DIETITIAN VISIT Date 06/22/22 Current diet reviewed with patient. Soft and maintenance diets discussed and handouts provided. Patient's weight decreased by: 18.6 lbs Patient does not consume 5-6 small meals daily: 3 Patient s portions are adequate for current diet: 1/2 cup Protein requirements discussed- currently consuming 65 grams of protein daily. Current protein sources: Mac and cheese, soups - noodle soup, tuna, yogurt, protein powder, proteinshake x2/day Recommendations: Notes she is throwing up after eating. Stated saucy foods, spaghetti and mac and cheese are leading to throwing up. Patient to have smaller, more frequent meals and snacks and make main emphasis of meal protein. Discussed decreasing intake of noodles to prevent getting sick. Fluid requirements discussed. Current Fluid Intake: >64 fl oz - drinks + popsicles Patient does drink sugar-free, caffeine-free and carbonation-free fluids only. Patient does not wait 30 minutes before and after meals to drink May have a sip with meals to help with dry foods Exercise activities discussed. Patient does currently exercising. She was reminded that regular exercise is critical part of a successful outcome following weight loss surgery. Behavioral/Emotional changes reviewed. Patient does feel comfortable with changes in eating behaviors and associated emotional changes. She was reminded that psychological counseling is available through [facility] post-[facility]. The importance of vitamin supplements has been reviewed and the patient is taking the following: -Multivitamin with minerals and iron -Calcium -Vitamin B12 -Vitamin D3 -Other: Recent Nutrient Concerns and Vitamin Supplementation Changes: No new labs to review at this time. Patient does reports compliance with V/M protocol. Notes itching from supplements in evening or an interaction from medications. Was not able to determine which ones could be causing this. Takes Calcium and B12 in AM, afternoon takes calcium, dinner takes Biotin and MVI, at bedtime takes last Calcium. Notes/Comments: Patient to start maintenance diet. Patient instructed to call or Mychart with any questions or concerns. Patient to have smaller, more frequent meals and snacks and avoid noodles right now, as these are causing her to get sick. RD will check in in a few weeks. Visit completed by: Caryn Salazar MS, RDN, LD * Maritza Victoria - 06/22/2022 9:30 AM EDT [facility] PROGRESS NOTE POST WEIGHT LOSS SURGERY FOLLOW UP Patient: Marvin Cook Service Date: 06/22/2022 Patient is 1 month(s) s/p Sleeve Gastrectomy Today's Metrics: Post-Surgical Weight Loss Date: 06/22/22 Height: 5' 4 (162.6 cm) Weight: 287 lb 9.6 oz (130 kg) BMI: 49.36 Weight Change: -8.4 lbs Total Weight Change: -18.6 lbs % EBWL: 10% Comments: 1M Pre-op Weight Metrics: Post-op Weight Metrics: %EBWL: % EBWL: 10% Weight Change Since Last Visit: Weight Change: -8.4 lbs Weight Change from Highest Pre-op Weight: Total Weight Change: -18.6 lbs Patient has the following questions: work question Pain: Patient rates pain on scale 0-10 as: 5 Exercise Compliance: Exercising: yes If yes: Type: walking and treadmill Times per week: 3-4 Min per session: 20-60 Falls Risk Assessment Patient does take medications which affect BP or mental status Patient does not have newly prescribed or changed dosage of medications within past 30 days which affect BP or mental status Patient has not fallen in the past 2 months Patient does not demonstrate unsteady gait Patient uses the following ambulatory assistive devices: none Patient states the presence of the following traits which increases risk of fall: none Patient is not on home O2 Labs Completed: no - If NO, patient instructed to get labs drawn today or CECI If YES: Labs completed at [facility]? no If yes see Labs Tab Labs completed at Non-[facility] facility? no If yes see Encounters Tab - Orders only - Historical Provider - Date: Completed by: Maritza Victoria documented in this [facility]04-05-2023 [facility] CONSULTATION REPORT NAME ACCOUNT SEX AGE ADMIT DISCHARGE PT MED. RECORD# NUMBER DATE DATE TYPE DANYELLE [id number] F 36 06/02/2022 06/02/2022 2 MARVIN Alvarez [id number] ROOM: DATE OF : 1985 DICTATING PHYSICIAN: Alexei Caldera PROGRESS NOTE HISTORY OF PRESENT ILLNESS: The patient was seen today on June 02, 2022 with abdominal pain. She had in April a laparoscopic gastric sleeve for obesity and she had chronic abdominal pain prior to this time and was on low dose opioid therapy for benign pain. The patient was given Percocet for postoperative pain. She is weaning that down. She is on 2 to 3 pills per day currently with some constipation issues controlled with MiraLAX. She has also been given a bunch of vitamins, which she is compliant with. The patient did quit smoking 3 months ago, and continues to not smoke. REVIEW OF SYSTEMS: The remainder of review of systems, intake form, pain questionnaire, nursing assessment, and OARRS report were reviewed. PHYSICAL EXAMINATION: GENERAL APPEARANCE: Reveals a pleasant 36-year-old female who is alert x3. Her cranial nerves are intact. VITAL SIGNS: She is 5 foot 4 and 299 pounds. Blood pressure 100/68, pulse 60, respirations 16, and saturation 100%. Cervical range of motion is full. Gait is upright. Her thyroid is not enlarged. HEART: Heart is regular. Peripheral pulses are maintained. LUNGS: Lungs are clear in all lung de leon. ABDOMEN: Soft and not acute and well-healed multiple scars are noted from the laparoscopic surgery. EXTREMITIES: Straight leg raising is negative and lumbar range of motion is full with pain only at extremes of extension. ASSESSMENT: 1. Morbid obesity. 2. Abdominal pain/postoperative and chronic. PLAN: We will give her Percocet 5 mg every 8 hours p.r.n. and then wean off this medication hopefully over the next several months. The patient agrees with the plan. She will call if any problems. Dictated By: Alexei Caldera DO 06/02/2022 08:39 JOB #: [id number] Transcribed By: am Page 1 of 2 MARVIN COOK Product Safety Test Engineer Report MARVIN COOK : 1985 06/02/2022 09:08 Electronically signed by: E-SIGN: ALEXEI CALDERA 06/03/22 06:58 Page 2 of 2 MARVIN COOK Product Safety Test Engineer [facility] Miscellaneous Notes* Result Encounter Note - Emperatriz Beckett NP - 05/25/2022 11:40 AM EDT Noted. Thank you documented in this [facility]03-27-2023 Progress note* Result Encounter Note - Emperatriz Beckett NP - 05/25/2022 11:40 AM EDT Noted. [id number] History of Present illness Narrative* Caryn Salazar, SALTY - 05/25/2022 10:00 AM EDT [facility] 1 WEEK VISIT POST-OPERATIVE DIETITIAN Date: 05/25/22 Pt is here for 1 week office visit. Pt is currently on a full liquid diet. Pt will advance to a pureed diet today and follow a pureed diet for 10 days. Then, the pt will advance to a soft diet until their 1 month post op office visit. Both of these diets have been reviewed with the pt today. Protein requirements discussed. Patient to consume 65-75 grams daily. Fluid requirements discussed. Patient to consume 64 oz+ daily. Patient is aware that she must consume fluids 30 mintues before and after meals .Reports she is getting in 64 fl oz Exercise activities discussed with the patient. She doeshave a plan for exercise when cleared. Patient advised that regular exercise is vital to a successful outcome following weight loss surgery. Behavioral/Emotional changes reviewed Patient does feel comfortable with changes in eating behaviors and associated emotional changes. She was reminded that psychological counseling is available through the [facility] post-[facility]. The importance of vitamin supplementation has been discussed with patient. She will start the following vitamin supplements today: -Multivitamin with minerals and iron -Calcium -Vitamin B12 -Vitamin D3 - Was taking 50,000 IU Vitamin D weekly. -Other: Notes/Comments: Patient noted throwing up and nausea - stated chicken broth, mashed potatoes. Discussed smaller, more frequent meals and snacks, fluid intake, as well as eating slowly. Patient to advance to pureed diet for 10 days, followed by soft diet. Patient to follow a soft diet until 1 month appointment. Visit completed by: Caryn Salazar MS, RDN, LD * Saman Rivas, DO - 05/25/2022 10:00 AM EDT Images from the original note were not included. HPI, PHYSICAL EXAMINATION & PLAN POST-OP HPI: Patient here today for 1 week post-weight loss surgery follow up LSG Visit Diagnoses: 1. Type 2 diabetes mellitus without complication, without long-term current use of insulin (CMS/HCC) (HCC) 2. Bilateral calf pain 3. Primary hypertension 4. Hyperlipidemia, unspecified hyperlipidemia type 5. Deficiency of multiple nutrient elements 6. Morbid obesity with BMI of 50.0-59.9, adult (CMS/HCC) (HCC) 7. Oral candidiasis HPI: The patient is feeling good. Denies nausea, vomiting, dysphagia, or any GERD Sx. Currently Taking is taking a PPI. Patient currently walking. Instructed no lifting heavier than 15lbs until [address] to start supplements. Review of Systems Constitutional: Negative for fatigue and fever. HENT: Negative for congestion, rhinorrhea and trouble swallowing. Respiratory: Negative for cough, chest tightness and shortness of breath. Cardiovascular: Negative for chest pain, palpitations and leg swelling. Gastrointestinal: Positive for nausea and vomiting. Negative for abdominal distention, abdominal pain, blood in stool, constipation and diarrhea. Genitourinary: Negative for dysuria, flank pain, frequency and urgency. Musculoskeletal: Positive for myalgias. Negative for arthralgias and back pain. Reports bilateral calf pain Skin: Negative for color change and rash. Neurological: Negative for light-headedness and headaches. Psychiatric/Behavioral: Negative for dysphoric mood. The patient is not nervous/anxious. Vomiting with oral intake but reports she has been eating mashed potatoes with protein powder, cottage cheese, etc. Denies difficulty swallowing fluids. Using Zofran with effectiveness. Reports she follows with Pain Management for chronic pain r/t abdominal pain and multiple surgeries. Vital signs are stable. Labs were not drawn. Physical Examination: BP 117/82 Pulse 67 Temp 36.5 C (97.7 F) Resp 16 Ht 5' 4 (1.626 m) Comment: BCC Wt 296 lb(134 kg) SpO2 97% BMI 50.81 kg/m General: This patient is awake, alert, and oriented, and is in no apparent distress. Respiratory: Non-labored breathing Abdomen: Obese, soft, non-tender, non-distended without masses/ No evidence of abdominal hernia / Incisions consistent with previous surgeries. Head and Neck: Obese, normocephalic and atraumatic/soft and supple Extremities: No cyanosis, clubbing or edema/ No calf tenderness/No restrictions of movement, is ambulatory without assistance. Neurological: Intact x 4 extremities, no focal deficits notes. Skin: No rashes or lesions noted. Rectal: Deferred Surgical site: is:clean, dry, intact, and nontender Drainage from surgical site: none Patient does not have a superficial incisional SSI Plan: Orders Placed This Encounter Procedures Zinc These orders are set for an approximate date - they can be drawn up to 3 months prior to the Expected Date on this Req. Please send results to: Peyton Clifton [address] [place] [address] [address] [facility] [phone] - [phone] And if not done at a [facility], please send to: [facility] [place] - [address] [place] [address], [address] Patient Name: Marvin Cook - 1985 Order Created by : Ivette Duque LPN Standing Status: Future Standing Expiration Date: 05/26/2023 Folate These orders are set for an approximate date - they can be drawn up to 3 months prior to the Expected Date on this Req. Please send results to: Peyton Barba - [address] [facility] [address] [facility] [id number] - [phone] And if not done at a [facility], please send to: [address], [address] Patient Name: Marvin Cook - 1985 Order Created by : Ivette Duque LPN Standing Status: Future Standing Expiration Date: 05/26/2023 Iron These orders are set for an approximate date - they can be drawn up to 3 months prior to the Expected Date on this Req. Please send results to: Peyton Clifton [address] [facility] [address] [facility] [address] - [phone] And if not done at a [facility], please send to: [address], [address] Patient Name: Marvin Cook - 1985 Order Created by : Ivette Duque LPN Standing Status: Future Standing Expiration Date: 05/26/2023 Ferritin These orders are set for an approximate date - they can be drawn up to 3 months prior to the Expected Date on this Req. Please send results to: Peyton Clifton [facility] [address] [facility] [address] - [phone] And if not done at a [facility], please send to: [address], [address] Patient Name: Marvin Cook - 1985 Order Created by : Ivette Duque LPN Standing Status: Future Standing Expiration Date: 05/26/2023 Magnesium These orders are set for an approximate date - they can be drawn up to 3 months prior to the Expected Date on this Req. Please send results to: Peyton Clifton [address] [facility] [address] [facility] [phone] - [phone] And if not done at a [facility], please send to: [address], [address] Patient Name: Marvin Cook - 1985 Order Created by : Ivette Duque LPN Standing Status: Future Standing Expiration Date: 05/26/2023 Vitamin B12 These orders are set for an approximate date - they can be drawn up to 3 months prior to the Expected Date on this Req. Please send results to: Peyton Clifton [address] [facility] [address] [facility] [address] - [phone] And if not done at a [facility], please send to: [address], [address] Patient Name: Marvin Cook - 1985 Order Created by : Ivette Duque LPN Standing Status: Future Standing Expiration Date: 05/26/2023 Comprehensive metabolic panel These orders are set for an approximate date - they can be drawn up to 3 months prior to the Expected Date on this Req. Please send results to: Peyton Clifton [address] [facility] [address] [facility] [address] - [phone] And if not done at a [facility], please send to: [address], [address] Patient Name: Marvin Clifton 1985 Order Created by : Ivette Duque LPN Standing Status: Future Standing Expiration Date: 05/26/2023 CBC These orders are set for an approximate date - they can be drawn up to 3 months prior to the Expected Date on this Req. Please send results to: Peyton Clifton [address] [facility] [address] [facility] [address] - [phone] And if not done at a [facility], please send to: [address], [address] Patient Name: Marvin Clifton 1985 Order Created by : Ivette Duque LPN Standing Status: Future Standing Expiration Date: 05/26/2023 Vascular US lower extremity venous duplex bilateral If not done at a [facility], please send to: [facility] [place] [address] [facility], [address] [place], [address] Order Created by : Emperatriz Beckett NP Standing Status: Future Standing Expiration Date: 05/25/2024 Medications ordered during this encounter: Outpatient Encounter Medications as of 05/25/2022 Medication Sig Dispense Refill atorvastatin (Lipitor) 80 MG tablet Take 80 mg by mouth. Blood Glucose Monitoring Suppl (ONE TOUCH ULTRA 2) w/Device kit USE DIRECTED Continuous Blood Gluc Career Development Counselor (FreeStyle Carola 14 Day [place]) device Continuous Blood Gluc Sensor (FreeStyle Carola 14 Day Sensor) misc EQ Aspirin Low Dose 81 MG chewable tablet CHEW AND SWALLOW 1 TABLET BY MOUTH ONCE DAILY ezetimibe (Zetia) 10 MG tablet 10 mg daily. insulin NPH-insulin regular (HumuLIN 70/30 KWIKPEN) (70-30) 100 UNIT/ML injection Inject 35 Units under the skin in the morning and 35 Units in the evening. Inject before meals. metoprolol succinate XL (Toprol-XL) 200 MG 24 hr tablet Take 200 mg by mouth daily. omeprazole (PriLOSEC) [address] capsule Take 1 capsule (20 mg) by mouth daily. Do not crush or chew.(Patient taking differently: Take by mouth daily. Do not crush or chew.) 90 capsule 1 oxyCODONE-acetaminophen (Percocet) 5-325 MG tablet Take 1 tablet by mouth every 6 hours as needed for severe pain (7-10) for up to 7 days. 28 tablet 0 pen needle, diabetic 31G X 8 MM misc USE TWICE A DAY pregabalin (Lyrica) 100 MG capsule 100 mg 2 times daily. ramipril (Altace) 2.5 MG capsule 2.5 mg daily. ticagrelor (Brilinta) 90 MG tablet Take 90 mg by mouth 2 times daily. traZODone (Desyrel) 150 MG tablet TAKE 1 TABLET BY MOUTH AT BEDTIME Vyvanse 40 MG capsule Take 40 mg by mouth in the morning. [DISCONTINUED] lisinopril 2.5 MG tablet Take 2.5 mg by mouth daily. [DISCONTINUED] ondansetron (Zofran) 4 MG tablet Take 1 tablet (4 mg) by mouth every 8 hours as needed for vomiting or nausea for up to 7 days. 20 tablet 0 ergocalciferol (Vitamin D2) 1.25 MG (88072 UT) capsule Take 1 capsule (1.25 mg) by mouth 1 (one) time per week for 8 doses. Take one capsule by mouth weekly for 8 weeks. (Patient not taking: Reportedon 05/25/2022) 8 capsule 0 fenofibrate (Tricor) 145 MG tablet Take 145 mg by mouth daily. Multiple Vitamins-Iron (MULTIVITAMIN/IRON PO) Take 1 mg by mouth daily. nitroglycerin (Nitrostat) 0.4 MG SL tablet 0.4 mg. nystatin (Mycostatin) 199667 UNIT/ML suspension Swish and spit 5 mL (500,000 Units) 3 times daily. Swish and spit 5 mLs by mouth three times daily for 10 days. 150 mL 1 omega-3 (Fish Oil) 1000 MG capsule ondansetron (Zofran) 4 MG tablet Take 1 tablet (4 mg) by mouth every 8 hours as needed for nausea or vomiting. 90 tablet 2 [DISCONTINUED] albuterol (2.5 MG/3ML) 0.083% nebulizer solution Inhale. [DISCONTINUED] amitriptyline (Elavil) 50 MG tablet [DISCONTINUED] amoxicillin-clavulanate (Augmentin) 875-125 MG tablet Take 1 tablet by mouth in the morning and 1 tablet in the evening. [DISCONTINUED] vaaeialrrfdbmod-vhvhjktkytqzlzl-VY 30-2-10 MG/5ML syrup TAKE 10 ML BY MOUTH EVERY 4 HOURS NEEDED [DISCONTINUED] cephalexin (Keflex) 500 MG capsule TAKE 1 CAPSULE BY MOUTH EVERY 6 HOURS [DISCONTINUED] ciprofloxacin (Cipro) 500 MG tablet Take 500 mg by mouth in the morning and 500 mg before bedtime. [DISCONTINUED] cyclobenzaprine (Flexeril) 5 MG tablet Take 5 mg by mouth in the morning and 5 mg atnoon and 5 mg before bedtime. [DISCONTINUED] dapagliflozin (Farxiga) 5 MG Take 5 mg by mouth every morning. [DISCONTINUED] Farxiga 5 MG [DISCONTINUED] fenofibrate (Tricor) 145 MG tablet Take 145 mg by mouth. [DISCONTINUED] fluconazole (Diflucan) 150 MG tablet Take 150 mg by mouth 1 (one) time per week. [DISCONTINUED] Fluticasone-Salmeterol 250-50 MCG/ACT aerosol powder Inhale 1 puff in the morning and 1 puff in the evening. [DISCONTINUED] gabapentin (Neurontin) 800 MG tablet TAKE 1 TABLET BY MOUTH TWICE DAILY NEEDED FOR NEUROPATHY [DISCONTINUED] guaiFENesin-codeine (Robitussin-AC) 100-10 MG/5ML syrup TAKE 10 ML BY MOUTH EVERY 8 HOURS NEEDED FOR COUGH [DISCONTINUED] HYDROcodone-acetaminophen ([place]lin) 5-325 MG tablet Take 1 tablet by mouth every 6 hours as needed. [DISCONTINUED] ibuprofen 200 MG tablet Take by mouth. [DISCONTINUED] Icosapent Ethyl (Vascepa) 1 g capsule 2 g. [DISCONTINUED] insulin aspart (NovoLOG FLEXPEN) 100 UNIT/ML pen [DISCONTINUED] insulin glargine (Lantus SoloStar) 100 UNIT/ML pen [DISCONTINUED] Jardiance 10 MG Take 10 mg by mouth in the morning. [DISCONTINUED] metFORMIN XR (Glucophage-XR) 500 MG 24 hr tablet Take 1,000 mg by mouth in the morning and 1,000 mg in the evening. [DISCONTINUED] metoprolol tartrate (Lopressor) 50 MG tablet Take 50 mg by mouth in the morning and 50 mg before bedtime. [DISCONTINUED] metroNIDAZOLE (Flagyl) 500 MG tablet Take 500 mg by mouth in the morning and 500 mg before bedtime. [DISCONTINUED] midodrine (Proamatine) 5 MG tablet TAKE 1 TABLET BY MOUTH THREE TIMES DAILY AT 6 AM,11 AM AND 4 PM [DISCONTINUED] norgestimate-ethinyl estradiol (Ortho-Cyclen) 0.25-35 MG-MCG tablet Take 1 tablet bymouth in the morning. [DISCONTINUED] omega-3 acid ethyl esters (Lovaza) 1 g capsule [DISCONTINUED] ondansetron (Zofran) 4 MG tablet TAKE 1 TABLET BY MOUTH EVERY 8 HOURS NEEDED FOR NAUSEA AND VOMITING [DISCONTINUED] ondansetron ODT (Zofran-ODT) 4 MG disintegrating tablet DISSOLVE 1 TABLET IN MOUTH EVERY 4 HOURS NEEDED FOR NAUSEA [DISCONTINUED] oxyCODONE-acetaminophen (Percocet) 5-325 MG tablet TAKE 1 TABLET BY MOUTH EVERY 8 HOURS NEEDED FOR SEVERE PAIN [DISCONTINUED] predniSONE (Deltasone) 20 MG tablet Take 40 mg by mouth in the morning. [DISCONTINUED] pregabalin (Lyrica) 100 MG capsule Take 1 capsule by mouth in the morning and 1 capsule at noon and 1 capsule before bedtime. [DISCONTINUED] promethazine (Phenergan) 25 MG tablet [DISCONTINUED] traMADol (Ultram) 50 MG tablet [DISCONTINUED] Trulicity 1.5 MG/0.5ML solution pen-injector 1 (one) time per week. wednesday No facility-administered encounter medications on file as of 05/25/2022. 1). Oral Thrush: positive, Rx: 5ml Nystatin swish and spit every 8 hours x 10days 2). Liver Bx: A. LIVER, WEDGE BIOPSY - MILD STEATOSIS (GRADE 1). Comment: Sections demonstrate an intact liver architecture with mild macrovesicular steatosis occupying approximately 15% of the liver volume. There is no evidence of ballooning degeration, lobular activity, or Elizabeth's hyaline. The portal tracts contain all normal structures without any significant inflammatory infiltrate. Special stains (iron and trichome) are negative for increased iron storage and fibrosis, respectively. B. STOMACH, PARTIAL GASTRECTOMY - GASTRIC MUCOSA WITH MINIMAL CHRONIC INFLAMMATION AND NO OTHER SIGNIFICANT HISTOPATHOLOGIC ABNORMALITIES Refer to GI : No 3). Follow up at 1 month office visit with standard labs 4). Patient to see PCP for follow up regarding further management of DM and HTN medications. 5). Continue PPI until 6 month office visit 6). Advance to Pureed diet, RD discussed at office visit 7). Psych concerns: No 8). No lifting >15lbs until 1 month office visit. 9). If patient is a woman of childrearing age- 18-50. We discussed the importance of contraception during the first 12-18 months post op, and we discussed that fertility will increase following the procedure. Advised patient to discuss with her OBGYN regarding contraception. Patient counseled with good understanding verbalized. 10). Weight loss: Post-op Weight Metrics: %EBWL: % EBWL: 5% Weight Change Since Last Visit: Weight Change: -10.2 lbs Weight Change from Highest Pre-op Weight: Total Weight Change: -10.2 lbs 11). DM II- Off multiple agents including Trulicity and metformin. Using SSI. Hasn't had to take any. Continued follow up with PCP. Planning to establish with Endocrinology. 12). Essential Hypertension- PCP to monitor Bps. 13). Bilateral calf pain- Negative Lito's sign. Will order Venous duplex to rule out DVT given herrecent surgery. 14). Oral candidiasis- Nystatin sent to pharmacy. Current Medications: Patient's Medications New Prescriptions NYSTATIN (MYCOSTATIN) 707271 UNIT/ML SUSPENSION Swish and spit 5 mL (500,000 Units) 3 times daily. Swish and spit 5 mLs by mouth three times daily for 10 days. Previous Medications ATORVASTATIN (LIPITOR) 80 MG TABLET Take 80 mg by mouth. BLOOD GLUCOSE MONITORING SUPPL (ONE TOUCH ULTRA 2) W/DEVICE KIT USE DIRECTED CONTINUOUS BLOOD GLUC HAND SHOE CUTTER (FREESTYLE CAROLA 14 DAY READER) DEVICE CONTINUOUS BLOOD GLUC SENSOR (FREESTYLE CAR[place]A 14 DAY SENSOR) MISC EQ ASPIRIN LOW DOSE 81 MG CHEWABLE TABLET CHEW AND SWALLOW 1 TABLET BY MOUTH ONCE DAILY ERGOCALCIFEROL (VITAMIN D2) 1.25 MG (90196 UT) CAPSULE Take 1 capsule (1.25 mg) by mouth 1 (one) time per week for 8 doses. Take one capsule by mouth weekly for 8 weeks. EZETIMIBE (ZETIA) 10 MG TABLET 10 mg daily. FENOFIBRATE (TRICOR) 145 MG TABLET Take 145 mg by mouth daily. INSULIN NPH-INSULIN REGULAR (HUMULIN 70/30 KWIKPEN) (70-30) 100 UNIT/ML INJECTION Inject 35 Units under the skin in the morning and 35 Units in the evening. Inject before meals. METOPROLOL SUCCINATE XL (TOPROL-XL) 200 MG 24 HR TABLET Take 200 mg by mouth daily. MULTIPLE VITAMINS-IRON (MULTIVITAMIN/IRON PO) Take 1 mg by mouth daily. NITROGLYCERIN (NITROSTAT) 0.4 MG SL TABLET 0.4 mg. OMEGA-3 (FISH OIL) 1000 MG CAPSULE OMEPRAZOLE (PRILOSEC) [address] CAPSULE Take 1 capsule (20 mg) by mouth daily. Do not crush or chew. OXYCODONE-ACETAMINOPHEN (PERCOCET) 5-325 MG TABLET Take 1 tablet by mouth every 6 hours as needed for severe pain (7-10) for up to 7 days. PEN NEEDLE, DIABETIC 31G X 8 MM MISC USE TWICE A DAY PREGABALIN (LYRICA) 100 MG CAPSULE 100 mg 2 times daily. RAMIPRIL (ALTACE) 2.5 MG CAPSULE 2.5 mg daily. TICAGRELOR (BRILINTA) 90 MG TABLET Take 90 mg by mouth 2 times daily. TRAZODONE (DESYREL) 150 MG TABLET TAKE 1 TABLET BY MOUTH AT BEDTIME VYVANSE 40 MG CAPSULE Take 40 mg by mouth in the morning. Modified Medications Modified Medication Previous Medication ONDANSETRON (ZOFRAN) 4 MG TABLET ondansetron (Zofran) 4 MG tablet Take 1 tablet (4 mg) by mouth every 8 hours as needed for nausea or vomiting. Take 1 tablet (4 mg) by mouth every 8 hours as needed for vomiting or nausea for up to 7 days. Discontinued Medications ALBUTEROL (2.5 MG/3ML) 0.083% NEBULIZER SOLUTION Inhale. DAPAGLIFLOZIN (FARXIGA) 5 MG Take 5 mg by mouth every morning. IBUPROFEN 200 MG TABLET Take by mouth. LISINOPRIL 2.5 MG TABLET Take 2.5 mg by mouth daily. METFORMIN XR (GLUCOPHAGE-XR) 500 MG 24 HR TABLET Take 1,000 mg by mouth in the morning and 1,000 mgin the evening. ONDANSETRON ODT (ZOFRAN-ODT) 4 MG DISINTEGRATING TABLET DISSOLVE 1 TABLET IN MOUTH EVERY 4 HOURS ASNEEDED FOR NAUSEA TRULICITY 1.5 MG/0.5ML SOLUTION PEN-INJECTOR 1 (one) time per week. wednesday She met with the dietitian today to review are vitamin and protein recommendations. Increase activity as recommended, the wounds are healed, no evidence of abdominal wall hernias. No nausea vomiting or dysphagia noted. Appropriate bowel function, discussed with her regarding contacting us for any questions or concerns. The lab slip was signed for the next visit. Follow up 1 month postop. I personally performed the evaluation and management of Marvin Cook in the development of a treatment plan for this patient. I personally interviewed the patient and performed an individual physical examination. In addition, I discussed the patient's condition and treatment options with them. Ihave also reviewed and agree with the past medical, family and social history unless otherwise noted. All of the patient's questions were answered. Patient Care Team: Peyton Barba as PCP - General Maritza A Norvaisa, RN as Registered Nurse Saman Rivas DO as Surgeon (General Surgery) * Ivette RichardsDARYA anguiano - 05/25/2022 10:00 AM EDT [facility] POST WEIGHT LOSS SURGERY FOLLOW UP - 1 WEEK Rooming Note Patient: Marvin Cook Service Date: 05/25/2022 Patient is 1 week s/p Lap Sleeve Gastrectomy Pre-Surgical Weight Loss Initial Height: 5' 4 (162.6 cm) Initial Weight: 296 lb (134 kg) Initial BMI: 50.80 [place] Body Weight: 120 lb (54.4 kg) Surgery Date: 05/20/22 Pre-Surgical Height: 5' 4 (162.6 cm) Pre-Surgical Weight: 306 lb 3.2 oz (139 kg) Pre Surgery BMI: 52.55 Weight to Lose: 186 lb Post-Surgical Weight Loss Date: 05/25/22 Height: 5' 4 (162.6 cm) Weight: 296 lb (134 kg) BMI: 50.80 Weight Change: -10.2 lbs Total Weight Change: -10.2 lbs % EBWL: 5% Comments: 1W Pain: Patient rates pain on scale 0-10 as: 7 Patient has the following questions: C/O pain in bilateral calf Patient is diabetic If patient IS Diabetic: Patient has spoken with the physician who prescribes their diabetic medications Patient has resumed their diabetic medications as directed by their physician sliding scale has notrequired insulin Patient advised as follows by physician prescribing diabetic medications: Scheduled in May Exercise Compliance: Compliance with recommended current exercise plan of walking/frequent ambulation: yes Falls Risk Assessment Patient does take medications which affect BP or mental status Patient does not have newly prescribed or changed dosage of medications within past 30 days which affect BP or mental status Patient has not fallen in the past 2 months Patient does not demonstrate unsteady gait Patient uses the following ambulatory assistive devices: none Patient states the presence of the following traits which increases risk of fall: none Patient is low risk for falls. If high or moderate risk, patient instructed not to ambulate independently in the Center, and cord for call light placed within reach of patient. Post-op Weight Metrics: %EBWL: % EBWL: 5% Weight Change Since Last Visit: Weight Change: -10.2 lbs Weight Change from Highest Pre-op Weight: Total Weight Change: -10.2 lbs Completed by: Ivette Duque LPN documented in this [facility]03-23-2023 NoteDischarge Summary Marvin Cook : 1985 ADMIT DATE: 05/20/2022 DISCHARGE DATE: 05/21/22 ATTENDING PHYSICIAN: Saman Rivas DO VISIT STATUS: Admission CODE STATUS: Full Code DISCHARGE DIAGNOSES: Principal Problem: Morbid obesity with BMI of 50.0-59.9, adult (CMS/[facility]) ([facility]) BMI Classification: Morbidly Obese (>40.0) HOSPITAL COURSE: Marvin Cook is a 36 y.o. female who presented to [facility] on 05/20/2022 for elective bariatric surgical procedure. This patient underwent a Laparoscopic Sleeve Gastrectomy Procedure on the day of admission. An UGI was obtained POD #1 and bariatric clear liquid diet was subsequently started. The patient met with bariatric nursing team and was informed thoroughly regarding goals and objectives going forward regarding bariatric protocol and expectations. They were prepared for discharge POD #2. At the time of discharge patient's vital signs were within normal limits. Patient was voiding spontaneously, tolerating a diet, ambulating independently and having bowel function. Patient's pain was controlled with PO pain meds. Pt was discharged with instructions as follows. CONSULTANTS: none SIGNIFICANT DIAGNOSTIC STUDIES: UGI DISCHARGE MEDICATIONS: Medication List START taking these medications ondansetron 4 MG tablet; Commonly known as: Zofran; Take 1 tablet (4 mg) by mouth every 8 hours as needed for vomiting or nausea for up to 7 days. oxyCODONE-acetaminophen 5-325 MG tablet; Commonly known as: Percocet; Take 1 tablet by mouth every 6 hours as needed for severe pain (7-10) for up to 7 days. CONTINUE taking these medications albuterol (2.5 MG/3ML) 0.083% nebulizer solution atorvastatin 80 MG tablet; Commonly known as: Lipitor dapagliflozin 5 MG; Commonly known as: Farxiga EQ Aspirin Low Dose 81 MG chewable tablet; Generic drug: aspirin ergocalciferol 1.25 MG (85847 UT) capsule; Commonly known as: Vitamin D2; Take 1 capsule (1.25 mg) by mouth 1 (one) time per week for 8 doses. Take one capsule by mouth weekly for 8 weeks. ezetimibe 10 MG tablet; Commonly known as: Zetia fenofibrate 145 MG tablet; Commonly known as: Tricor FreeStyle Carola 14 Day [place] device FreeStyle Carola 14 Day Sensor misc HumuLIN 70/30 KWIKPEN (70-30) 100 UNIT/ML injection; Generic drug: insulin NPH-insulin regular ibuprofen 200 MG tablet lisinopril 2.5 MG tablet metFORMIN XR 500 MG 24 hr tablet; Commonly known as: Glucophage-XR metoprolol succinate XL 200 MG 24 hr tablet; Commonly known as: Toprol-XL MULTIVITAMIN/IRON PO nitroglycerin 0.4 MG SL tablet; Commonly known as: Nitrostat omega-3 1000 MG capsule; Commonly known as: Fish Oil ondansetron ODT 4 MG disintegrating tablet; Commonly known as: Zofran-ODT ONE TOUCH ULTRA 2 w/Device kit pen needle, diabetic 31G X 8 mm misc; Generic drug: insulin pen needle pregabalin 100 MG capsule; Commonly known as: Lyrica ramipril 2.5 MG capsule; Commonly known as: Altace ticagrelor 90 MG tablet; Commonly known as: Brilinta traZODone 150 MG tablet; Commonly known as: Desyrel Trulicity 1.5 MG/0.5ML solution pen-injector; Generic drug: dulaglutide Vyvanse 40 MG capsule; Generic drug: lisdexamfetamine STOP taking these medications ciprofloxacin 500 MG tablet; Commonly known as: Cipro HYDROcodone-acetaminophen 5-325 MG tablet; Commonly known as: Franklin ASK your doctor about these medications omeprazole [address] capsule; Commonly known as: PriLOSEC; Take 1 capsule (20 mg) by mouth daily. Do not crush or chew. DIET: Bariatric Diet Protocol with Clears, instruction for continued diet included in discharge instructions. ACTIVITY: No driving while on narcotic pain medication. No heavy lifting. No strenuous activity. Instructions to proceed will be provided during outpatient follow up. WOUND CARE: keep wound clean and dry DISPOSITION: Home FACILITY/HOME CARE AGENCY NAME: N/A Follow up with: Saman Rivas DO in 1-2 weeks PCP: Peyton Barba in 1-2 weeks SIGNED: Colleen Murray DO 05/21/2022, 2:16 [facility]03-23-2023 [facility] Respiratory Care Department Progress Note As part of the Respiratory Assessment Program (RAP), the following Respiratory Therapist evaluation has been completed, including a chart review and clinical/physical assessment. Respiratory Therapist RAP Evaluation Guideline Points 0 1 2 3 4 Points Strongly Consider History Factor No Pulmonary conditions Stable Pulmonary condition(s) Surgery or Intervention that may impact Pulmonary system (at risk) Surgery or Intervention that is impacting Pulmonary system Active Exacerbation of Pulmonary Condition 0 Respiratory Pattern Regular, RR= 12-18 CHU or Increased RR= 19-24 Irregular, or RR= 25-30 SOB, talk in short sentences, or RR= 31-35 Severe SOB, accessory muscle use, one word answers, or RR>35 0 Aerosol Med(s), High Flow O2 Breath Sounds Clear Diminished in 1 lobe Diminished in ? 2 lobes Adventitious breath sounds Coarse crackles, Wheezes, or Diminished in >2 lobes 1 Aerosol Med(s), Bronchial Hygiene, Hyperinflation Cough & Sputum Strong cough, no secretion retention or production Weak cough, no secretion retention or production Weak cough, w/ production (less often than Q2hr), or secretion retention No cough, w/ secretion retention or production (less often than Q2hr) Significant secretion production (more often than Q2hr) or mucus plug 0 Aerosol Med(s), Bronchial Hygiene, Hyperinflation Level of Activity Ambulatory Ambulatory with Assist Up in chair or edge of bed (dangle) Non-ambulatory, bedridden with active ROM Completely paralyzed or without active ROM 0 Triage 5 0-2 Triage 4 3-5 Triage 3 6-10 Triage 2 11-14 Triage 1 ?15 Total 1 Triage Score = 1 TRIAGE SCORING - SUGGESTED FREQUENCIES Aerosol Therapy Bronchial Hygiene Hyperinflation Triage Score Q4h & PRN 1 Q4hWA (QID) & PRN 2 TID & PRN 3 BID & PRN 4 PRN 5 Therapy(s) Indicated Yes/No Aerosol Medication no Hyperinflation Bronchial Hygiene High Flow Oxygen Flow Rates PEF (L/Sec) IVC FVC FEV1 FEV1/FVC Patient instructed and returned demonstration on use of MDI (with spacer, as appropriate) RT to enter/modify frequency of treatment order in EMR/EHR to match this RAP evaluation. Based on this RAP evaluation the following therapy is being initiated: At the following frequency: PRN Comments: Thank you for involving Respiratory in the care of this patient, [facility] [id number] NotePatient: Marvin Cook Procedure Summary Date: 05/20/22 Room / Location: [facility] OR [address] [place] [address] Operating Room Anesthesia Start: 809 Anesthesia Stop: 931 Procedures: LAPAROSCOPIC SLEEVE GASTRECTOMY WITH LIVER WEDGE BIOPSY, EGD (Abdomen) UNLISTED LAPAROSCOPIC PROCEDURE LIVER (Abdomen) Diagnosis: Morbid (severe) obesity due to excess calories (HCC) (Morbid (severe) obesity due to excess calories (HCC) [E66.01]) Surgeons: Saman Rivas DO Responsible Provider: ZAY Flores CRNA Anesthesia Type: general, regional ASA Status: 3 Anesthesia Type: general, regional Vitals Value Taken Time BP 151/87 05/20/22 0930 Temp 36.3 ?C (97.4 ?F) 05/20/22 0931 Pulse 75 05/20/22 0932 Resp 22 05/20/22 0932 SpO2 100 % 05/20/2232 Vitals shown include unvalidated device data. Anesthesia Post Evaluation Patient location during evaluation: PACU Patient participation: complete - patient participated Level of consciousness: awake and alert Pain management: satisfactory to patient Airway patency: patent Dental Injury: no Cardiovascular status: acceptable, blood pressure returned to baseline and hemodynamically stable Respiratory status: acceptable and spontaneous ventilation Hydration status: euvolemic Nausea/Vomiting: controlled No notable events documented. Patient can be discharged once all PACU criteria has been met.[facility] [id number] NotePatient: Marvin Cook Procedure Summary Date: 05/20/22 Room / Location: [address] Operating Room Anesthesia Start: 809 Anesthesia Stop: 931 Procedures: LAPAROSCOPIC SLEEVE GASTRECTOMY WITH LIVER WEDGE BIOPSY, EGD (Abdomen) UNLISTED LAPAROSCOPIC PROCEDURE LIVER (Abdomen) Diagnosis: Morbid (severe) obesity due to excess calories (HCC) (Morbid (severe) obesity due to excess calories (HCC) [E66.01]) Surgeons: Saman Rivas DO Responsible Provider: ZAY Flores CRNA Anesthesia Type: general, regional ASA Status: 3 Anesthesia Type: general, regional Vitals Value Taken Time BP 151/87 05/20/22 0930 Temp 36.3 ?C (97.4 ?F) 05/20/22 0931 Pulse 75 05/20/22 0932 Resp 22 05/20/22 0932 SpO2 100 % 05/20/22 0932 Vitals shown include unvalidated device data. Anesthesia Post Evaluation Patient location during evaluation: PACU Patient participation: complete - patient participated Level of consciousness: awake and alert Pain management: satisfactory to patient Multimodal analgesia pain management approach Airway patency: patent Two or more strategies used to mitigate risk of obstructive sleep apnea Cardiovascular status: acceptable and hemodynamically stable Respiratory status: acceptable Hydration status: acceptable No notable events documented. MIPS #430 PONV Patient received an inhalational anesthetic (4554F) Patient exhibits three or more risk factors for PONV (4556F) Patient received at leaset 2 prophylactic Rx PONV anti-emtic agents of different classes preop and/or intraop (G9775) MIPS # 424 Perioperative Temperature Management Anesthesia time was 60 minutes or longer (4255F) Anesthesai administered was General (inhalational or TIVA) or Neuraxial block (X0424) At least one body temperature greater than 95.8F/35.5C achieved within the 30 mins immediately prior to or the 15 minutes immediately following anesthesia end time (G9771) MIPS #477 Multimodal Pain Management Not emergent case Patient was administered multimodal pain management (two or more drugs and/or interventions excluding systemic opioids) in the periopeartive period occurring at some time between 6 hours prior to anesthesia start time until discharged from PACU (G2149) MIPS #404 Anesthesiology Smoking Abstinence The patient is a current smoker (e.g. cigarette, cigar, pipe, e-cigarette/vaping/marijuana) The patient underwent an elective surgery or procedure requiring anesthesia (G9643) The patient received preop smoking cessation instructions prior to the day of surgery or procedure by MD, APC sorter lumber straightener proxy staff (G9497) The patient did smoke the day of the procedure (G9644) The patient did not smoked the day of the procedure I completed my handoff to the receiving clinician during which we: 1. Identified the patient 2. Identified the responsible provider 3. Reviewed the pertinent medical history 4. Discussed the surgical course 5. Reviewed intra-op anesthesia management and issues during anesthesia 6. Set expectations for post-procedure period 7. Allowed opportunity for questions and acknowledgement of understanding.[facility]03-22-2023 NoteAirway Date/Time: 05/20/2022 8:19 AM Urgency: scheduled Airway not difficult General Information and Staff Patient location during procedure: Procedural Resident/ACCOUNTING CONSULTANT: ZAY Flores CRNA Performed: SRNA Indications and Patient Condition Indications for airway management: anesthesia Sedation level: Asleep Preoxygenated: yes Patient position: sniffing Mask difficulty assessment: 1 - vent by mask Final Airway Details Final airway type: endotracheal airway Successful airway: ETT Cuffed: yes Successful intubation technique: direct laryngoscopy Endotracheal tube insertion site: oral Blade: Franci Blade size: #3 ETT size (mm): 7.0 Cormack-Lehane Classification: grade IIa - partial view of glottis Placement verified by: chest auscultation, capnometry and palpation of cuff Measured from: lips ETT to lips (cm): 22 Number of attempts at approach: [address] [place], [place] [id number] Note Peripheral Block Time Out: 05/20/2022 8:15 AM Patient location during procedure: Procedural Start time: 05/20/2022 8:15 AM End time: 05/20/2022 8:17 AM Reason for block: at surgeon's request and post-op pain management Staffing Performed: MANNY Resident/ACCOUNTING CONSULTANT: ZAY De La Cruz CRNA Preanesthetic Checklist Completed: patient identified, IV checked, site marked, risks and benefits discussed, surgical consent, monitors and equipment checked, pre-op evaluation and timeout performed Region: [place] Primary: TAP (Bupivacaine 0.375%/ Epi 1:200,000/ Dex 0.1mg/mL 40ml divided evenly bilateral) Secondary: Upper rectus (Bupivacaine 0.375%/ Epi 1:200,000/ Dex 0.1mg/mL 20ml divided evenly bilateral) Peripheral Block Patient position: supine Prep: ChloraPrep Patient monitoring: heart rate, surveillance monitor, continuous pulse ox and continuous capnometry O2: ETT/LMA Laterality: bilateral Injection technique: single-shot Guidance: ultrasound guided -image retained in chart, tip of the needle identified by ultraound during injection. Needle Needle: 21G X 110 mm Additional Notes 05/20/2022 8:15 AM Assessment Injection assessment: negative aspiration for heme, no paresthesia on injection and incremental injection Heart rate change: no Slow fractionated injection: yes Required Documentation: Relevant anatomy identified (Nerves, Vessels, Muscles), Negative for blood on aspiration, Local anesthetic injected incrementally with intermittent aspiration every 5 mL, Normal resistance with injection, No EKG changes noted, No symptoms of toxicity and Local anesthetic spread visualized around nerves or plane.Medications obqIDAQZjifea-vnydjppbmit-vlbiwsxmzbt (TAP) syringe - Injection 60 mL - 05/20/2022 8:15:00 [facility]03-20-2023 Telephone encounter Note* Telephone Encounter - Carina Singletary LPN - 05/18/2022 10:30 AM EDT EKG received and to [facility] mailbox. [id number] Miscellaneous Notes* Telephone Encounter - Carina Singletary LPN - 05/18/2022 10:30 AM EDT EKG received and to [employer] mailbox. * Telephone Encounter - Carina Singletary LPN - 05/18/2022 8:44 AM EDT [facility]. Will send as soon asit is ready. To [employer] mailbox for review. * Telephone Encounter - Carina Singletary LPN - 05/15/2022 1:17 PM EDT Yes I have no doubt she was told, she says she assumed she already did everything. I spoke with her yesterday and today. We have confirmed that [facility] has the orders. She will do after work today, she says around 2:00. * Telephone Encounter - ZAY Anaya CNP - 05/15/2022 12:57 PM EDT Carina thanks so much, but I did say to her, that I had her US and UGI results and she needed a cxr and ekg. Do we know what the day she is having done? Thanks! * Telephone Encounter - Carina Singletary LPN - 05/14/2022 3:44 PM EDT After some research (no results found) and discussion with patient it appears she was confused. Shewas thinking of UGI and other lab work that she had done at [facility] right before insurance submission. She was unaware of preop chest XR, EKG and the 4 blood labs. I faxed orders to [facility], confirmation obtained. Patient states she will do right after work tomorrow. * Telephone Encounter - ZAY Anaya CNP - 05/14/2022 2:05 PM EDT Carina She did pre op lab, cxr and ekg at [facility]. Can you please locate. Thanks. * Telephone Encounter - JESS Sahni - 05/13/2022 2:39 PM EDT Received US report from 05/08/22 completed in [place], [place] Shows fatty liver. CCN updated previously but don't see scanned US MyChart sent to pt. * Telephone Encounter - Carina Singletary LPN - 05/11/2022 4:16 PM EDT Cardiology response received. To [employer] mailbox. * Telephone Encounter - ZAY Anaya CNP - 05/11/2022 3:31 PM EDT Reviewed US and UGI- nothing acute. I left message w her coat padder office, Susana. She will ask about when Brilinta can be held. * Telephone Encounter - Carina Singletary LPN - 05/11/2022 10:29 AM EDT UGI and U/S results received from [facility]. To [facility] mailbox as patient will likely be scheduled for surgery quickly. * Telephone Encounter - Carina Singletary LPN - 05/06/2022 11:42 AM EST MP pre-op pending auth and scheduling. I was able to get [facility] listed under the [facility]N. Records to [facility] mailbox for review. * Telephone Encounter - Carina Singletary LPN - 05/05/2022 8:55 AM EST Noted, thank you. * Telephone Encounter - ZAY Anaya CNP - 05/05/2022 8:02 AM EST Thanks, reviewed and agree., * Telephone Encounter - Carina Singletary LPN - 05/04/2022 7:38 AM EST Tox is back. Shows positive for Opitates and Amphetamine. I think explained by Percocet and Vyvansein med list? To [facility] mailbox. * Telephone Encounter - Carina Singletary LPN - 04/27/2022 4:51 PM EST Orders mailed. * Addendum Note - ZAY Anaya CNP - 04/27/2022 3:49 PM ESTAddended by: JUAN HDZ on: 04/27/2022 03:49 PM Modules accepted: Orders * Telephone Encounter - ZAY Anaya CNP - 04/27/2022 3:49 PM EST Signed. * Addendum Note - Carina Singletary LPN - 04/27/2022 11:07 AM ESTAddended by: CARINA SINGLETARY on: 04/27/2022 11:07 AM Modules accepted: Orders * Telephone Encounter - Carina Singletary LPN - 04/27/2022 11:03 AM EST PETRA TOX AND PREG PLEASE * Addendum Note - ZAY Anaya CNP - 04/24/2022 2:45 PM ESTAddended by: JUAN HDZ on: 04/24/2022 02:45 PM Modules accepted: Orders * Telephone Encounter - ZAY Anaya CNP - 04/24/2022 2:45 PM EST Agree w both. Thanks! * Addendum Note - Rylee Belcher - 04/24/2022 9:44 AM ESTAddended by: RYLEE BELCHER on: 04/24/2022 09:44 AM Modules accepted: Orders * Telephone Encounter - Rylee Belcher - 04/24/2022 9:38 AM EST Juan, Patient had egd 10/03/21 at [facility]. The report is in the old epic, we looked for pathologybut didn't see where a biopsy was taken. Pending a stool lab? Also, ccn says patient had ultrasound at [facility]. I called [facility] to get a copy and they say patient didn't have abdominal ultrasound-she had a pelvic ultrasound. Pending an ultrasound? Please advise, thank you! * Telephone Encounter - ZAY Anaya CNP - 04/22/2022 1:12 PM EST Signed. * Telephone Encounter - Rylee Belcher - 04/22/2022 9:19 AM EST Labs, imaging documented in this [facility]03-20-2023 Telephone encounter Note* Telephone Encounter - Carina Singletary LPN - 05/18/2022 8:44 AM EDT Received Chest XR and labs from [facility]. They state EKG result not ready yet. Will send as soon asit is ready. To mailbox for review. [id number] Telephone encounter Note* Telephone Encounter - Carina Singletary LPN - 05/15/2022 1:17 PM EDT Yes I have no doubt she was told, she says she assumed she already did everything. I spoke with her yesterday and today. We have confirmed that [facility] has the orders. She will do after work today, she says around 2:00. [id number] Miscellaneous Notes* Telephone Encounter - Carina Singletary LPN - 05/15/2022 1:17 PM EDT Yes I have no doubt she was told, she says she assumed she already did everything. I spoke with her yesterday and today. We have confirmed that [facility] has the orders. She will do after work today, she says around 2:00. * Telephone Encounter - ZAY Anaya CNP - 05/15/2022 12:57 PM EDT Carina thanks so much, but I did say to her, that I had her US and UGI results and she needed a cxr and ekg. Do we know what the day she is having done? Thanks! * Telephone Encounter - Carina Singletary LPN - 05/14/2022 3:44 PM EDT After some research (no results found) and discussion with patient it appears she was confused. Shewas thinking of UGI and other lab work that she had done at [facility] right before insurance submission. She was unaware of preop chest XR, EKG and the 4 blood labs. I faxed orders to [facility], confirmation obtained. Patient states she will do right after work tomorrow. * Telephone Encounter - ZAY Anaya CNP - 05/14/2022 2:05 PM EDT Carina Wright did pre op lab, cxr and ekg at [facility]. Can you please locate. Thanks. * Telephone Encounter - JESS Sahni - 05/13/2022 2:39 PM EDT Received US report from 05/08/22 completed in [place], [place] Shows fatty liver. CCN updated previously but don't see scanned US MyChart sent to pt. * Telephone Encounter - Carina Singletary LPN - 05/11/2022 4:16 PM EDT Cardiology response received. To [facility] mailbox. * Telephone Encounter - ZAY Anaya CNP - 05/11/2022 3:31 PM EDT Reviewed US and UGI- nothing acute. I left message w her coat padder office, Susana. She will ask about when Brilinta can be held. * Telephone Encounter - Carina Singletary LPN - 05/11/2022 10:29 AM EDT UGI and U/S results received from [facility]. To [facility] mailbox as patient will likely be scheduled for surgery quickly. * Telephone Encounter - Carina Singletary LPN - 05/06/2022 11:42 AM EST MP pre-op pending auth and scheduling. I was able to get her [facility] records from [facility] listed under the CCN. Records to [facility] mailbox for review. * Telephone Encounter - Carina Singletary LPN - 05/05/2022 8:55 AM EST Noted, thank you. * Telephone Encounter - ZAY Anaya CNP - 05/05/2022 8:02 AM EST Thanks, reviewed and agree., * Telephone Encounter - Carina Singletary LPN - 05/04/2022 7:38 AM EST Tox is back. Shows positive for Opitates and Amphetamine. I think explained by Percocet and Vyvansein med list? To [facility] mailbox. * Telephone Encounter - Carina Singletary LPN - 04/27/2022 4:51 PM EST Orders mailed. * Addendum Note - ZAY Anaya CNP - 04/27/2022 3:49 PM ESTAddended by: JUAN HDZ on: 04/27/2022 03:49 PM Modules accepted: Orders * Telephone Encounter - ZAY Anaya CNP - 04/27/2022 3:49 PM EST Signed. * Addendum Note - Carina Singletary LPN - 04/27/2022 11:07 AM ESTAddended by: CARINA SINGLETARY on: 04/27/2022 11:07 AM Modules accepted: Orders * Telephone Encounter - Carina Singletary LPN - 04/27/2022 11:03 AM EST PETRA TOX AND PREG PLEASE * Addendum Note - ZAY Anaya CNP - 04/24/2022 2:45 PM ESTAddended by: JUAN HDZ on: 04/24/2022 02:45 PM Modules accepted: Orders * Telephone Encounter - ZAY Anaya CNP - 04/24/2022 2:45 PM EST Agree w both. Thanks! * Addendum Note - Rylee Belcher - 04/24/2022 9:44 AM ESTAddended by: RYLEE BELCHER on: 04/24/2022 09:44 AM Modules accepted: Orders * Telephone Encounter - Rylee Belcher - 04/24/2022 9:38 AM EST Juan, Patient had egd 10/03/21 at [facility]. The report is in the old epic, we looked for pathologybut didn't see where a biopsy was taken. Pending a stool lab? Also, ccn says patient had ultrasound at [facility]. I called [facility] to get a copy and they say patient didn't have abdominal ultrasound-she had a pelvic ultrasound. Pending an ultrasound? Please advise, thank you! * Telephone Encounter - ZAY Anaya CNP - 04/22/2022 1:12 PM EST Signed. * Telephone Encounter - Rylee Belcher - 04/22/2022 9:19 AM EST Labs, imaging documented in this [facility]SS[facility] [id number] Telephone encounter Note* Telephone Encounter - ZAY Anaya CNP - 05/15/2022 12:57 PM EDT Carina thanks so much, but I did say to her, that I had her US and UGI results and she needed a cxr and ekg. Do we know what the day she is having done? Thanks! C[place] Phone: [phone] Telephone encounter Note* Telephone Encounter - Carina Singletary LPN - 05/14/2022 3:44 PM EDT After some research (no results found) and discussion with patient it appears she was confused. Shewas thinking of UGI and other lab work that she had done at [facility] right before insurance submission. She was unaware of preop chest XR, EKG and the 4 blood labs. I faxed orders to [facility], confirmation obtained. Patient states she will do right after work tomorrow. [facility] [id number] Telephone encounter Note* Telephone Encounter - ZAY Anaya CNP - 05/14/2022 2:05 PM EDT Carina She did pre op lab, cxr and ekg at [facility]. Can you please locate. Thanks. Marcel [id number] History of Present illness Narrative* ZAY Anaya CNP - 05/14/2022 1:30 PM EDT Patient History/Assessment Summary: The patient is a 36 y.o. year old female with morbid obesity, who stands Height: 5' 4 (162.6 cm) ([facility]) tall with a weight of Weight: 299 lb (136 kg) , resulting in a BMI of Body mass index is 51.32 kg/m .. The patient is scheduled to undergo weight loss surgery to treat the following comorbid conditions that are directly associated with or indirectly associated with obesity: DM II, HTN, LAILA, HLD, TOB Past Medical History: Diagnosis Date Asthma Back pain CAD (coronary artery disease) COVID-19 vaccine series not completed Daytime sleepiness Heartburn HTN (hypertension) Hx of pulmonary embolus Hyperlipidemia Myocardial infarct (CMS/HCC) (HCC) LAILA (obstructive sleep apnea) not on PAP Pulmonary embolism (HCC) after her heart attack Type 2 diabetes mellitus without complication, without long-term current use of insulin (CMS/HCC) (HCC) She attended the weight loss surgery seminar prior to their initial surgical evaluation, and attended pre-op class on . The patient is scheduled for Laparoscopic Sleeve Gastrectomy. She is here today to review the details of surgery prior to their date of surgery: The patient acknowledges and understands the risks, benefits, and options we have discussed, as outlined in the Additional Informed Consent for this procedure. Patient also understands the importanceof pre and post-operative recommendations, including the Optifast diet and regular post-operative follow up care. The importance of ambulation and incentive spirometry was also discussed. All questions of this patient and any family members present have been answered to their satisfaction. Review of Systems Constitutional: Negative for chills and fever. HENT: Negative for sore throat and trouble swallowing. Respiratory: Negative for chest tightness and shortness of breath. Cardiovascular: Negative for chest pain and leg swelling. Gastrointestinal: Negative for abdominal distention, diarrhea, nausea and vomiting. Genitourinary: Negative for decreased urine volume. Skin: Negative for rash. Neurological: Negative for dizziness, syncope and weakness. Psychiatric/Behavioral: Negative for confusion. The patient is not nervous/anxious. Physical Examination: BP 108/63 Pulse 87 Temp 36.4 C (97.6 F) Resp 16 Ht 5' 4 (1.626 m) Comment: BCC Wt 299 lb(136 kg) LMP 04/21/2022 BMI 51.32 kg/m General: This patient is awake, alert, and oriented, and is in no apparent distress. Cardiac: Regular rate and rhythm without evidence of murmur. Respiratory: Clear to auscultation bilaterally. Abdomen: Obese, soft, non-tender, non-distended without masses/ No evidence of abdominal hernia / Incisions consistent with previous surgeries. Head and Neck: Obese, normocephalic and atraumatic/soft and supple, no lymphadenopathy or obvious bruits. Extremities: No cyanosis, clubbing or edema/ No calf tenderness/No restrictions of movement, is ambulatory without assistance. Neurological: Intact x 4 extremities, no focal deficits notes. Skin: No rashes or lesions noted Surgical History: Past Surgical History: Procedure Laterality Date ATRIAL ABLATION SURGERY 2016 CARDIAC SURGERY 2021 Stent placement-/Erum CARDIAC SURGERY 2020 Stent placement- SECTION (HISTORICAL) 2010 Center SECTION (HISTORICAL) 2008 Center CHOLECYSTECTOMY [facility], [facility] HERNIA REPAIR 1999 - HERNIA REPAIR 2011 Dr.Mike Connors UPPER GASTROINTESTINAL ENDOSCOPY Recommendations: We spent a great deal of time discussing the risks and benefits of Laparoscopic Sleeve Gastrectomy,including but not limited to injury to intra-abdominal organs, breakdown of the gastric staple line, the need for re-operative therapy, prolonged hospitalization, mechanical ventilation, and . We discussed the possibility of bleeding, the need for blood transfusions, blood clots, hospital-acquired and intra-abdominal infection, anastomotic stricture, and worsening GERD. And we discussed the need for post-operative visit compliance, behavior modifications and diet changes, protein and vitamin supplementation, as well as routine scheduled and dedicated exercise. We discussed the potential w eight loss benefit to approximately 60-70% of her excess body weight at 12-18 months post-op, as well as the possibility of insufficient weight loss or weight gain after 2 years post-operative time. Upon completion of all required pre- operative testing we will submit for insurance pre-authorization. The following was discussed with the patient: PATIENT SUMMARY Marvin BOOTH 36 y.o. female with Body mass index is 51.61 kg/m . Laparoscopic Sleeve Gastrectomy and Laparoscopic Liver Biopsy Procedure DM[x] HTN[x] LAILA[x] GERD[] HL[x] OA[] TOB[x] Date of Surgery: 05/20/2022 NOTES MP PCP: Peyton Barba INITIAL TESTING RESULTS Labwork [x] CMP, TSH, Fasting Lipid Profile, Mg, Zinc, Vit B1 (whole blood), Vit B12, 25-OH Vit D, Fe, Ferritin, Folate 04/24/22 TSH OK Tobacco [x] Serum Nicotine / Cotinine 04/29/22 [x] Negative [] Positive EGD [x] Dx: [x] GERD [] Dyspepsia [] Other No need to repeat, as this was done oct [address] Drake at [facility]. Pathology [x] H. pylori 04/30/22 [x] Negative [] Positive NEED A STOOL - NO BX WAS DONE WITH HISTORICAL EGD UGI [x] [] not ordered sched 05/08/22 [facility] 05/08/22 -duodenal diverticulum. No HH US Abdomen [x] [] not ordered Scheduled 05/08/22 [facility] Already done at [facility] [place] DOES NOT HAVE A ABDOMINAL U/S DONE AT [place] 05/08/22 S/P GO LAILA eval [] [] On CPAP / Obtain settings Hematology [] [] Hypercoagulation panel Toxicology [x] [x] Urine drug screen [x] EtOH screen 04/29/22 pos Opiates/Amphetamine Addtional [x] [x] Hgb A1c 04/24/22 7.6 INITIAL CONSULTATIONS CLEARANCE / MANAGEMENT Psychology [x] Dr. Kirby Initial 04.15.2022; Needs documentation prescriber; CLEARED 04.28.2022 Dietitian [x] yosvany mcmillan Cleared 10/20/21 Cardiology [x] -pt known to you. Cleared 03/10/2022 Pulmonary [x] Dr. MONDRAGON Pt non compliant w CPAP- sleep study done 3 years ago Cleared 04/28/22 Others [] []Heme/Onc []Psychiatry [x[facility] [] Physician supervised diet: []None []3 mos [x]6 mos Preop diet [] Preop low calory diet: []None []1 wk [x]2 wks []Ext. FINAL PRE-OP TESTING RESULTS Labwork [x] [x]Pre-op CBC [x]BMP []Serum Nicotine / Cotinine EKG [x] CXR [x] POST-OP MEDICATIONS Ulcer Ppx [] Omeprazole 20 mg PO []QD []BID Gallstone Ppx [] Ursodiol 300 mg []BID DVT Ppx [] DVT prophylaxis per final preop visit estimated risk Estimated calculated risk: % FILE TO FINANCIAL 05/05/22 Estimated calculated risk: 0.27% DVT PPX Risk Factors [] Male [] Age >= 60 years [x] BMI >= 50 kg/m^2 [] CHF [] Dyspnea at Rest [] Paraplegia [x] Non-Gastric Band Surgery [] Anticipate Operative Time > 3 hours [] Anticipate Length of Stay >3 days Automatic 4 Weeks of Therapy [] Congenital or Acquired Hypercoagulable Conditions (Factor V Leiden, Prothrombin) [x] Past History of DVT or PE [] Significant Chronic Venous Insufficiency Calculated Risk Score: Risk % Weeks </> BMI 50 SQ Dose [] Moderate <0.4% 0 None [] High Risk 0.4% - 1% 2 [] 40 mg Lovenox BID [] 60 mg Lovenox BID [x] Very High Risk >1% 4 [] 40 mg Lovenox BID [x] 60 mg Lovenox BID Lovenox is indicated. Also on ASA and Brilinta per Cardiology. Stent in 07/2020. Prescriptions were not provided for Actigall post-operatively, as she has had cholecystectomy. Prescriptions were provided for Gastric Ulcer Prophylaxis post-operatively. Pre-op diet- 2 weeks- begin on 05/14/22. Last dose of Brillinta today. I spent over 51% of the total visit time of 25 minutes counseling (or coordinating care) and provided discussion regarding risks, benefits, and options referenced above, as well as pre- and post-operative program recommendations and requirements. * Maritza Victoria - 05/14/2022 1:30 PM EDT [facility] SURGICAL WEIGHT LOSS MANAGEMENT PROGRAM Rooming note: FINAL PRE-OP VISIT Patient: Marvin Cook Date of : 1985 Service Date: 05/14/2022 This patient is accompanied by sibling for the evaluation today Patient is here today for their final pre-operative visit with surgeon prior to undergoing surgicalweight loss intervention. Patient has the following question(s): none Weight Metrics: Measurements Weight: 299 lb (136 kg) Height: 5' 4 (162.6 cm) ([facility]) BMI (Calculated): 51.4 Percent Excess Weight Loss: 0 Percent Weight Change Since Preop (kg): 135.62 kg Initial Excess Weight (kg): -54.43 kg IBW in kg (Bariatric): 54.43 kg IBW in lb (Bariatric): 120 lb Weight Change Since Last Visit: 0 kg Percent of IBW: 249.17 Percent EBW (kg): 81.17 kg EBW (lb): 179 lb Today's weight has decreased from the last visit Falls Risk Assessment Patient does take medications which affect BP or mental status Patient does not have newly prescribed or changed dosage of medications within past 30 days which affect BP or mental status Patient has not fallen in the past 2 months Patient does not demonstrate unsteady gait Patient uses the following ambulatory assistive devices: NONE Patient states the presence of the following traits which increases risk of fall: NONE Patient is low risk for falls. If high or moderate risk, patient instructed not to ambulate independently in the Center, and cord for call light placed within reach of patient. Patient has had a time when it was difficult for an IV to be placed. Patient is not on home O2 Patient has not has a time when it was difficult to intubate them Patient does not have a CPAP/BiPAP machine. PT REPORTED If patient DOES have CPAP/BiPAP: [] CPAP [] BiPAP Settings are N/A cm H2O PAP and settings are not entered into the Medication List Completed by: Maritza Victoria documented in this [facility]03-16-2023 NotePatient: Marvin Cook Procedure Information Date/Time: 05/20/22 0730 Procedures: LAPAROSCOPIC SLEEVE GASTRECTOMY WITH LIVER WEDGE BIOPSY POSSIBLE OPEN (Abdomen) UNLISTED LAPAROSCOPIC PROCEDURE LIVER (Abdomen) Location: [address] Operating Room Surgeons: Saman Rivas DO Past Medical History: Past Medical History: No date: Asthma No date: Back pain No date: CAD (coronary artery disease) No date: COVID-19 vaccine series not completed No date: Daytime sleepiness No date: Heartburn No date: HTN (hypertension) No date: Hx of pulmonary embolus No date: Hyperlipidemia No date: Myocardial infarct (CMS/HCC) (HCC) No date: LAILA (obstructive sleep apnea) Comment: not on PAP No date: Pulmonary embolism (HCC) Comment: after her heart attack No date: Type 2 diabetes mellitus without complication, without long- term current use of insulin (CMS/HCC) (HCC) Past Surgical History: Past Surgical History: 2017: ATRIAL ABLATION SURGERY Comment: 2021: CARDIAC SURGERY Comment: Stent placement-[facility] 2020: CARDIAC SURGERY Comment: Stent placement- 2010: SECTION (HISTORICAL) Comment: [facility] 2008: SECTION (HISTORICAL) Comment: [facility] 1999: HERNIA REPAIR Comment: 2011: HERNIA REPAIR Comment: Dr.Mike Connors No date: UPPER GASTROINTESTINAL ENDOSCOPY Social History: TOBACCO: reports that she quit smoking about 2 months ago. Her smoking use included cigarettes. She started smoking about 23 years ago. She smoked an average of .5 packs per day. She has never used smokeless tobacco. ETOH: reports that she does not currently use alcohol. Social History Substance and Sexual Activity Drug Use Never Family History: Family History Problem Relation Name Age of Onset ? Hypertension Mother ? Cancer Mother ? Heart disease Father ? Hypertension Paternal Grandmother ? Cancer Paternal Grandmother ? Heart disease Paternal Grandmother ? Diabetes Paternal Grandmother ? Cancer Paternal Grandfather Screening: Having periods Clinical information reviewed: Tobacco Allergies Meds Med Hx Surg Hx OB Status Fam Hx Soc Hx Physical Exam Airway Mallampati: II TM distance: >3 FB Neck ROM: full Mouth Open: normalendotracheal tube not in place Cardiovascular Dental (+) chipped Comments: Multiple chipped teeth per patient Pulmonary Abdominal Anesthesia Plan ASA 3 general and regional (Labwork, EKG,CXR scanned into media 05/18/22 and reviewed TAP blocks for post op pain management) The patient is not a current smoker. Anesthetic plan and risks discussed with patient. patient is NPO Insulin Sliding Scale: medium General ERAS LAILA Screening Labs: Lab Results Component Value Date WBC 6.7 04/24/2022 HGB 13.6 04/24/2022 HCT 40.0 04/24/2022 MCV 91.7 04/24/2022 PLT 280 04/24/2022 Lab Results Component Value Date NA 137 04/24/2022 K 4.5 04/24/2022 CL 105 04/24/2022 CO2 26 04/24/2022 BUN 17 04/24/2022 CREATININE 0.89 04/24/2022 GLUCOSE 164 (H) 04/24/2022 CALCIUM 8.9 04/24/2022 PROT 6.5 04/24/2022 ALKPHOS 63 04/24/2022 AST 32 04/24/2022 ALT 27 04/24/2022 EGFR 86.8 04/24/2022 No echocardiogram results found for the past 14 days No results found for this or any previous visit.[facility] 05-14-2022 NoteComprehensive PreSurgical History and Physical Name: Marvin Cook : 1985 (Age-36 y.o.) Date of Service: Pt seen/examined on 05/14/2022 Procedure Information Date/Time: 05/20/22 0730 Procedures: LAPAROSCOPIC SLEEVE GASTRECTOMY WITH LIVER WEDGE BIOPSY POSSIBLE OPEN (Abdomen) UNLISTED LAPAROSCOPIC PROCEDURE LIVER (Abdomen) Location: [facility] OR [address] [place] [address] Operating Room Surgeons: Saman Rivas DO Chief Complaint: Morbid (severe) obesity due to excess calories (HCC) [E66.01] History Of Present Illness: 36 y.o. female who we are asked to see/evaluate by Dr. Rivas for pre-operative evaluation prior to . ? Patient proceeding with the above procedure for weight loss and to reduce associated comorbidities. Patient denies exertional chest pain/shortness of breath. Denies dizziness, syncope, lightheadedness. Denies fever, chills, weakness or fatigue. Patient denies any recent illness, infections, or wounds. Patient denies abdominal pain, nausea, vomiting, diarrhea, or constipation. Patient denies hx of CHF, TIA/CVA, COPD. Past Medical History: Past Medical History: No date: Asthma No date: Back pain No date: CAD (coronary artery disease) No date: COVID-19 vaccine series not completed No date: Daytime sleepiness No date: Heartburn No date: HTN (hypertension) No date: Hx of pulmonary embolus No date: Hyperlipidemia No date: Myocardial infarct (CMS/HCC) (HCC) No date: LAILA (obstructive sleep apnea) Comment: not on PAP No date: Pulmonary embolism (HCC) Comment: after her heart attack No date: Type 2 diabetes mellitus without complication, without long- term current use of insulin (CMS/HCC) (HCC) Past Surgical History: Past Surgical History: 2017: ATRIAL ABLATION SURGERY Comment: 2021: CARDIAC SURGERY Comment: Stent placement-[facility] 2020: CARDIAC SURGERY Comment: Stent placement- 2010: SECTION (HISTORICAL) Comment: [facility] 2008: SECTION (HISTORICAL) Comment: [facility] 1999: HERNIA REPAIR Comment: 2011: HERNIA REPAIR Comment: Dr.Mike Connors No date: UPPER GASTROINTESTINAL ENDOSCOPY Medications Prior to Admission: Current Outpatient Medications on File Prior to Visit Medication Sig Dispense Refill atorvastatin (Lipitor) 80 MG tablet Take 80 mg by mouth. dapagliflozin (Farxiga) 5 MG Take 5 mg by mouth every morning. EQ Aspirin Low Dose 81 MG chewable tablet CHEW AND SWALLOW 1 TABLET BY MOUTH ONCE DAILY ergocalciferol (Vitamin D2) 1.25 MG (87129 UT) capsule Take 1 capsule (1.25 mg) by mouth 1 (one) time per week for 8 doses. Take one capsule by mouth weekly for 8 weeks. 8 capsule 0 ezetimibe (Zetia) 10 MG tablet 10 mg daily. fenofibrate (Tricor) 145 MG tablet Take 145 mg by mouth in the morning. HYDROcodone-acetaminophen (Franklin) 5-325 MG tablet Take 1 tablet by mouth every 6 hours as needed. ibuprofen 200 MG tablet Take by mouth. insulin NPH-insulin regular (HumuLIN 70/30 KWIKPEN) (70-30) 100 UNIT/ML injection Inject 35 Units under the skin in the morning and 35 Units in the evening. Inject before meals. lisinopril 2.5 MG tablet Take 2.5 mg by mouth daily. metFORMIN XR (Glucophage-XR) 500 MG 24 hr tablet Take 1,000 mg by mouth in the morning and 1,000 mg in the evening. metoprolol succinate XL (Toprol-XL) 200 MG 24 hr tablet Take 200 mg by mouth daily. Multiple Vitamins-Iron (MULTIVITAMIN/IRON PO) Take 1 mg by mouth daily. omega-3 (Fish Oil) 1000 MG capsule pregabalin (Lyrica) 100 MG capsule 150 mg 2 times daily. ramipril (Altace) 2.5 MG capsule 2.5 mg daily. ticagrelor (Brilinta) 90 MG tablet Take 90 mg by mouth 2 times daily. traZODone (Desyrel) 150 MG tablet TAKE 1 TABLET BY MOUTH AT BEDTIME Trulicity 1.5 MG/0.5ML solution pen-injector 1 (one) time per week. wednesday Vyvanse 40 MG capsule Take 40 mg by mouth in the morning. albuterol (2.5 MG/3ML) 0.083% nebulizer solution Inhale. amitriptyline (Elavil) 50 MG tablet amoxicillin-clavulanate (Augmentin) 875-125 MG tablet Take 1 tablet by mouth in the morning and 1 tablet in the evening. Blood Glucose Monitoring Suppl (ONE TOUCH ULTRA 2) w/Device kit USE DIRECTED tihmcajiwhldsxp-dvevgvyiamaakga-SD 30-2-10 MG/5ML syrup TAKE 10 ML BY MOUTH EVERY 4 HOURS NEEDED cephalexin (Keflex) 500 MG capsule TAKE 1 CAPSULE BY MOUTH EVERY 6 HOURS ciprofloxacin (Cipro) 500 MG tablet Take 500 mg by mouth in the morning and 500 mg before bedtime. Continuous Blood Gluc Career Development Counselor (FreeStyle Carola 14 Day [place]) device Continuous Blood Gluc Sensor (FreeStyle Carola 14 Day Sensor) misc cyclobenzaprine (Flexeril) 5 MG tablet Take 5 mg by mouth in the morning and 5 mg at noon and 5 mg before bedtime. fluconazole (Diflucan) 150 MG tablet Take 150 mg by mouth 1 (one) time per week. Fluticasone-Salmeterol 250-50 MCG/ACT aerosol powder Inhale 1 puff in the morning and 1 puff in (more content not included)...[facility] 05-14-2022 NoteComprehensive PreSurgical History and Physical Name: Marvin Cook : 1985 (Age-36 y.o.) Date of Service: Pt seen/examined on 05/14/2022 Procedure Information Date/Time: 05/20/22 0730 Procedures: LAPAROSCOPIC SLEEVE GASTRECTOMY WITH LIVER WEDGE BIOPSY POSSIBLE OPEN (Abdomen) UNLISTED LAPAROSCOPIC PROCEDURE LIVER (Abdomen) Location: [facility] OR [address] [place] [address] Operating Room Surgeons: Saman Rivas DO Chief Complaint: Morbid (severe) obesity due to excess calories (HCC) [E66.01] History Of Present Illness: 36 y.o. female who we are asked to see/evaluate by Dr. Rivas for pre-operative evaluation prior to . ? Patient proceeding with the above procedure for weight loss and to reduce associated comorbidities. Patient denies exertional chest pain/shortness of breath. Denies dizziness, syncope, lightheadedness. Denies fever, chills, weakness or fatigue. Patient denies any recent illness, infections, or wounds. Patient denies abdominal pain, nausea, vomiting, diarrhea, or constipation. Patient denies hx of CHF, TIA/CVA, COPD. Past Medical History: Past Medical History: No date: Asthma No date: Back pain No date: CAD (coronary artery disease) No date: COVID-19 vaccine series not completed No date: Daytime sleepiness No date: Heartburn No date: HTN (hypertension) No date: Hx of pulmonary embolus No date: Hyperlipidemia No date: Myocardial infarct (CMS/HCC) (HCC) No date: LAILA (obstructive sleep apnea) Comment: not on PAP No date: Pulmonary embolism (HCC) Comment: after her heart attack No date: Type 2 diabetes mellitus without complication, without long- term current use of insulin (CMS/HCC) (HCC) Past Surgical History: Past Surgical History: 2017: ATRIAL ABLATION SURGERY Comment: 2021: CARDIAC SURGERY Comment: Stent placement-/Erum 2020: CARDIAC SURGERY Comment: Stent placement- 2010: SECTION (HISTORICAL) Comment: Angelia 2008: SECTION (HISTORICAL) Comment: Angelia 1999: HERNIA REPAIR Comment: 2011: HERNIA REPAIR Comment: Dr.Mike Connors No date: UPPER GASTROINTESTINAL ENDOSCOPY Medications Prior to Admission: Current Outpatient Medications on File Prior to Visit Medication Sig Dispense Refill atorvastatin (Lipitor) 80 MG tablet Take 80 mg by mouth. dapagliflozin (Farxiga) 5 MG Take 5 mg by mouth every morning. EQ Aspirin Low Dose 81 MG chewable tablet CHEW AND SWALLOW 1 TABLET BY MOUTH ONCE DAILY ergocalciferol (Vitamin D2) 1.25 MG (47967 UT) capsule Take 1 capsule (1.25 mg) by mouth 1 (one) time per week for 8 doses. Take one capsule by mouth weekly for 8 weeks. 8 capsule 0 ezetimibe (Zetia) 10 MG tablet 10 mg daily. fenofibrate (Tricor) 145 MG tablet Take 145 mg by mouth in the morning. HYDROcodone-acetaminophen (Franklin) 5-325 MG tablet Take 1 tablet by mouth every 6 hours as needed. ibuprofen 200 MG tablet Take by mouth. insulin NPH-insulin regular (HumuLIN 70/30 KWIKPEN) (70-30) 100 UNIT/ML injection Inject 35 Units under the skin in the morning and 35 Units in the evening. Inject before meals. lisinopril 2.5 MG tablet Take 2.5 mg by mouth daily. metFORMIN XR (Glucophage-XR) 500 MG 24 hr tablet Take 1,000 mg by mouth in the morning and 1,000 mg in the evening. metoprolol succinate XL (Toprol-XL) 200 MG 24 hr tablet Take 200 mg by mouth daily. Multiple Vitamins-Iron (MULTIVITAMIN/IRON PO) Take 1 mg by mouth daily. omega-3 (Fish Oil) 1000 MG capsule pregabalin (Lyrica) 100 MG capsule 150 mg 2 times daily. ramipril (Altace) 2.5 MG capsule 2.5 mg daily. ticagrelor (Brilinta) 90 MG tablet Take 90 mg by mouth 2 times daily. traZODone (Desyrel) 150 MG tablet TAKE 1 TABLET BY MOUTH AT BEDTIME Trulicity 1.5 MG/0.5ML solution pen-injector 1 (one) time per week. wednesday Vyvanse 40 MG capsule Take 40 mg by mouth in the morning. albuterol (2.5 MG/3ML) 0.083% nebulizer solution Inhale. amitriptyline (Elavil) 50 MG tablet amoxicillin-clavulanate (Augmentin) 875-125 MG tablet Take 1 tablet by mouth in the morning and 1 tablet in the evening. Blood Glucose Monitoring Suppl (ONE TOUCH ULTRA 2) w/Device kit USE DIRECTED ktlgvuixbetqeur-qvqpbyddealkwik-VK 30-2-10 MG/5ML syrup TAKE 10 ML BY MOUTH EVERY 4 HOURS NEEDED cephalexin (Keflex) 500 MG capsule TAKE 1 CAPSULE BY MOUTH EVERY 6 HOURS ciprofloxacin (Cipro) 500 MG tablet Take 500 mg by mouth in the morning and 500 mg before bedtime. Continuous Blood Gluc Career Development Counselor (FiberSensingStyle Carola 14 Day [place]) device Continuous Blood Gluc Sensor (FreeStyle Carola 14 Day Sensor) misc cyclobenzaprine (Flexeril) 5 MG tablet Take 5 mg by mouth in the morning and 5 mg at noon and 5 mg before bedtime. fluconazole (Diflucan) 150 MG tablet Take 150 mg by mouth 1 (one) time per week. Fluticasone-Salmeterol 250-50 MCG/ACT aerosol powder Inhale 1 puff in the morning and 1 puff in (more content not included)...[facility] scoo mobility [facility] 05-13-2022 Telephone encounter Note* Telephone Encounter - JESS Sahni - 05/13/2022 2:39 PM EDT Received US report from 05/08/22 completed in [place], [place] Shows fatty liver. CCN updated previously but don't see scanned US MyChart sent to pt. [facility] Work Phone: [phone] 628-399203-15-2023 History of Present illness Narrative* Emperatriz Beckett NP - 05/13/2022 1:55 PM EDT Estimated calculated risk: 0.27% DVT PPX Risk Factors [] Male [] Age >= 60 years [x] BMI >= 50 kg/m^2 [] CHF [] Dyspnea at Rest [] Paraplegia [x] Non-Gastric Band Surgery [] Anticipate Operative Time > 3 hours [] Anticipate Length of Stay >3 days Automatic 4 Weeks of Therapy [] Congenital or Acquired Hypercoagulable Conditions (Factor V Leiden, Prothrombin) [x] Past History of DVT or PE [] Significant Chronic Venous Insufficiency Calculated Risk Score: Risk % Weeks </> BMI 50 SQ Dose [] Moderate <0.4% 0 None [] High Risk 0.4% - 1% 2 [] 40 mg Lovenox BID [] 60 mg Lovenox BID [x] Very High Risk >1% 4 [] 40 mg Lovenox BID [x] 60 mg Lovenox BID Resources documented in this encounterSSamaritan North Health [id number] Telephone encounter Note* Telephone Encounter - Carina Singletary LPN - 05/11/2022 4:16 PM EDT Cardiology response received. To GO [employer] mailbox. [id number] Miscellaneous Notes* Telephone Encounter - Carina Singletary LPN - 05/11/2022 4:16 PM EDT Cardiology response received. To MARIUSZ mailbox. * Telephone Encounter - ZAY Anaya CNP - 05/11/2022 3:31 PM EDT Reviewed US and UGI- nothing acute. I left message w her coat padder office, [place]. She will ask about when Brilinta can be held. * Telephone Encounter - Carina Singletary LPN - 05/11/2022 10:29 AM EDT UGI and U/S results received from [facility]. To [employer] mailbox as patient will likely be scheduled for surgery quickly. * Telephone Encounter - Carina Singletary LPN - 05/06/2022 11:42 AM EST MP pre-op pending auth and scheduling. I was able to get [facility] under the [facility]. Records to [employer] mailbox for review. * Telephone Encounter - Carina Singletary LPN - 05/05/2022 8:55 AM EST Noted, thank you. * Telephone Encounter - ZAY Anaya CNP - 05/05/2022 8:02 AM EST Thanks, reviewed and agree., * Telephone Encounter - Carina Singletary LPN - 05/04/2022 7:38 AM EST Tox is back. Shows positive for Opitates and Amphetamine. I think explained by Percocet and Vyvansein med list? To [employer] mailbox. * Telephone Encounter - Carina Singletary LPN - 04/27/2022 4:51 PM EST Orders mailed. * Addendum Note - ZAY Anaya CNP - 04/27/2022 3:49 PM ESTAddended by: JUAN HDZ on: 04/27/2022 03:49 PM Modules accepted: Orders * Telephone Encounter - ZAY Anaya CNP - 04/27/2022 3:49 PM EST Signed. * Addendum Note - Carina Singletary LPN - 04/27/2022 11:07 AM ESTAddended by: CARINA SINGLETARY on: 04/27/2022 11:07 AM Modules accepted: Orders * Telephone Encounter - Carina Singletary LPN - 04/27/2022 11:03 AM EST PETRA TOX AND PREG PLEASE * Addendum Note - ZAY Anaya CNP - 04/24/2022 2:45 PM ESTAddended by: JUAN HDZ on: 04/24/2022 02:45 PM Modules accepted: Orders * Telephone Encounter - ZAY Anaya CNP - 04/24/2022 2:45 PM EST Agree w both. Thanks! * Addendum Note - Rylee Belcher - 04/24/2022 9:44 AM ESTAddended by: RYLEE BELCHER on: 04/24/2022 09:44 AM Modules accepted: Orders * Telephone Encounter - Rylee Belcher - 04/24/2022 9:38 AM EST Juan, Patient had egd 10/03/21 at [facility]. The report is in the old epic, we looked for pathologybut didn't see where a biopsy was taken. Pending a stool lab? Also, ccn says patient had ultrasound at [facility]. I called [facility] to get a copy and they say patient didn't have abdominal ultrasound-she had a pelvic ultrasound. Pending an ultrasound? Please advise, thank you! * Telephone Encounter - ZAY Anaya CNP - 04/22/2022 1:12 PM EST Signed. * Telephone Encounter - Rylee Belcher - 04/22/2022 9:19 AM EST Labs, imaging documented in this encounterSSamaritan North Health [id number] Telephone encounter Note* Telephone Encounter - ZAY Anaya CNP - 05/11/2022 3:31 PM EDT Reviewed US and UGI- nothing acute. I left message w her coat padder office, [place]. She will ask about when Brilinta can be held. [id number] Telephone encounter Note* Telephone Encounter - Carina Singletary LPN - 05/11/2022 10:29 AM EDT UGI and U/S results received from [facility]. To [employer] mailbox as patient will likely be scheduled for surgery quickly. [id number] Telephone encounter Note* Telephone Encounter - Carina Singletary LPN - 05/06/2022 11:42 AM EST MP pre-op pending auth and scheduling. I was able to get her [facility] records [facility] listed under the CCN. Records to GO GO DANCER mailbox for review. [facility] [id number] Telephone encounter Note* Telephone Encounter - Carina Singletary LPN - 05/05/2022 8:55 AM EST Noted, thank you. [facility] [id number] Telephone encounter Note* Telephone Encounter - ZAY Anaya CNP - 05/05/2022 8:02 AM EST Thanks, reviewed and agree., [facility] [id number] Telephone encounter Note* Telephone Encounter - Carina Singletary LPN - 05/04/2022 7:38 AM EST Tox is back. Shows positive for Opitates and Amphetamine. I think explained by Percocet and Vyvansein med list? To [employer] mailbox. [id number] Telephone encounter Note* Telephone Encounter - Carina Singletary LPN - 04/27/2022 4:51 PM EST Orders mailed. [facility]02-27-2023 Note* Addendum Note - ZAY Anaya CNP - 04/27/2022 3:49 PM ESTAddended by: JUAN HDZ on: 04/27/2022 03:49 PM Modules accepted: Orders [address]27-2023 Note* Addendum Note - ZAY Anaya CNP - 04/27/2022 3:49 PM ESTAddended by: JUAN HDZ on: 04/27/2022 03:49 PM Modules accepted: Orders [id number] Note* Addendum Note - ZAY Aanya CNP - 04/27/2022 3:49 PM ESTAddended by: JUAN HDZ on: 04/27/2022 03:49 PM Modules accepted: Orders [address]27-2023 Note* Addendum Note - ZAY Anaya CNP - 04/27/2022 3:49 PM ESTAddended by: JUAN HDZ on: 04/27/2022 03:49 PM Modules accepted: Orders [address]27-2023 Note* Addendum Note - ZAY Anaya CNP - 04/27/2022 3:49 PM ESTAddended by: JUAN HDZ on: 04/27/2022 03:49 PM Modules accepted: Orders [address]27-2023 Telephone encounter Note* Telephone Encounter - ZAY Anaya CNP - 04/27/2022 3:49 PM EST Signed. [address]27-2023 Note* Addendum Note - Carina Singletary LPN - 04/27/2022 11:07 AM ESTAddended by: CARINA SINGLETARY on: 04/27/2022 11:07 AM Modules accepted: Orders [address]27-2023 Note* Addendum Note - Carina Singletary LPN - 04/27/2022 11:07 AM ESTAddended by: CARINA SINGLETARY on: 04/27/2022 11:07 AM Modules accepted: Orders [address]27-2023 Note* Addendum Note - Carina Singletary LPN - 04/27/2022 11:07 AM ESTAddended by: CARINA SINGLETARY on: 04/27/2022 11:07 AM Modules accepted: Orders [address]27-2023 Note* Addendum Note - Carina Singletary LPN - 04/27/2022 11:07 AM ESTAddended by: CARINA SINGLETARY on: 04/27/2022 11:07 AM Modules accepted: Orders [address]27-2023 Note* Addendum Note - Carina Singletary LPN - 04/27/2022 11:07 AM ESTAddended by: CARINA SINGLETARY on: 04/27/2022 11:07 AM Modules accepted: Orders [address]27-2023 Telephone encounter Note* Telephone Encounter - Carina Singletary LPN - 04/27/2022 11:03 AM EST PETRA TOX AND PREG PLEASE [address]24-2023 Note* Addendum Note - Juan Hdz APRN - FAX MACHINE REPAIRER - 04/24/2022 2:45 PM ESTAddended by: JUAN HDZ on: 04/24/2022 02:45 PM Modules accepted: Orders [facility] [id number] Note* Addendum Note - ZAY Anaya CNP - 04/24/2022 2:45 PM ESTAddended by: JUAN HDZ on: 04/24/2022 02:45 PM Modules accepted: Orders [id number] Note* Addendum Note - ZAY Anaya CNP - 04/24/2022 2:45 PM ESTAddended by: JUAN HDZ on: 04/24/2022 02:45 PM Modules accepted: Orders [id number] Note* Addendum Note - ZAY Anaya CNP - 04/24/2022 2:45 PM ESTAddended by: JUAN HDZ on: 04/24/2022 02:45 PM Modules accepted: Orders [facility] [id number] Note* Addendum Note - ZAY Anaya CNP - 04/24/2022 2:45 PM ESTAddended by: JUAN HDZ on: 04/24/2022 02:45 PM Modules accepted: Orders [facility] [id number] Telephone encounter Note* Telephone Encounter - ZAY Anaya CNP - 04/24/2022 2:45 PM EST Agree w both. Thanks! [id number] [facility] SURGICAL WEIGHT LOSS MANAGEMENT PROGRAM PROGRESS NOTE FOLLOW UP Patient: Marvin Cook Date of : 1985 Service Date: 04/24/2022 DE Visit number: 6 of 6 Pre Program Weight Metrics Date of Initial Consultation:@FLOWLAST(8961)@ Initial Weight: @FLOWLAST([id number])@ Initial BMI: @FLOWLAST([id number])@ [place] Body Weight: @FLOWLAST([id number])@ Excess Body Weight: @FLOWLAST([id number])@ Follow Up Weight Metrics Last Three Weights Including Today's Weight: Wt Readings from Last 3 Encounters: 04/24/22 (!) 306 lb 3.2 oz (139 kg) 03/25/22 296 lb (134 kg) 02/25/22 299 lb 6.4 oz (136 kg) Today's BMI: BMI: 52.55 %EBWL: % EBWL: % Weight Chance Since Last Visit: Weight Change: 10.2 lbs Weight Change from Initial DE/SPR Weight: Total Weight Change: Non-Surg Weight on File> lbs Patient has the following question(s): none Falls Risk Assessment Patient doestake medications which affect BP or mental status Patient does not have newly prescribed or changed dosage of medications within past 30 days which affect BP or mental status Patient has not fallen in the past 2 months Patient does notdemonstrate unsteady gait Patient uses the following ambulatory assistive devices: none Patient states the presence of the following traits which increases risk of fall: none Patient is not on home O2 Completed by: Liliya Turner, [facility]02-24-2023 Note* Addendum Note - Rylee Belcher - 04/24/2022 9:44 AM ESTAddended by: RYLEE BELCHER on: 04/24/2022 09:44 AM Modules accepted: Orders [facility]02-24-2023 Note* Addendum Note - Rylee Belcher - 04/24/2022 9:44 AM ESTAddended by: RYLEE BELCHER on: 04/24/2022 09:44 AM Modules accepted: Orders [facility]02-24-2023 Note* Addendum Note - Rylee Belcher - 04/24/2022 9:44 AM ESTAddended by: RYLEE BELCHER on: 04/24/2022 09:44 AM Modules accepted: Orders [facility]02-24-2023 Note* Addendum Note - Rylee Belcher - 04/24/2022 9:44 AM ESTAddended by: RYLEE BELCHER on: 04/24/2022 09:44 AM Modules accepted: Orders [facility]02-24-2023 Note* Addendum Note - Rylee Belcher - 04/24/2022 9:44 AM ESTAddended by: RYLEE BELCHER on: 04/24/2022 09:44 AM Modules accepted: Orders [place] [id number] Telephone encounter Note* Telephone Encounter - Rylee Belcher - 04/24/2022 9:38 AM EST Juan, Patient had egd 10/03/21 at [facility]. The report is in the old epic, we looked for pathologybut didn't see where a biopsy was taken. Pending a stool lab? Also, [facility] says patient had ultrasound at [facility]. I called [facility] to get a copy and they say patient didn't have abdominal ultrasound-she had a pelvic ultrasound. Pending an ultrasound? Please advise, thank you! [facility]02-22-2023 Telephone encounter Note* Telephone Encounter - ZAY Anaya CNP - 04/22/2022 1:12 PM EST Signed. [id number] Telephone encounter Note* Telephone Encounter - Rylee Belcher - 04/22/2022 9:19 AM EST Labs, imaging [facility] [id number] [facility] SURGICAL WEIGHT LOSS MANAGEMENT PROGRAM PROGRESS NOTE FOLLOW UP Patient: Marvin Cook Date of : 1985 Service Date: 03/25/2022 DE Visit number: 5 of 6 Pre Program Weight Metrics Date of Initial Consultation:@FLOWLAST(8961)@ Initial Weight: @FLOWLAST([id number])@ Initial BMI: @FLOWLAST([id number])@ [place] Body Weight: @FLOWLAST([id number])@ Excess Body Weight: @FLOWLAST([id number])@ Follow Up Weight Metrics Last Three Weights Including Today's Weight: Wt Readings from Last 3 Encounters: 03/25/22 296 lb (134 kg) 02/25/22 299 lb 6.4 oz (136 kg) 01/06/22 299 lb 9.6 oz (136 kg) Today's BMI: BMI: 50.80 %EBWL: % EBWL: % Weight Chance Since Last Visit: Weight Change: -3.4 lbs Weight Change from Initial DE/SPR Weight: Total Weight Change: Non-Surg Weight on File> lbs Patient has the following question(s): none Falls Risk Assessment Patient doestake medications which affect BP or mental status Patient does not have newly prescribed or changed dosage of medications within past 30 days which affect BP or mental status Patient has not fallen in the past 2 months Patient does notdemonstrate unsteady gait Patient uses the following ambulatory assistive devices: NONE Patient states the presence of the following traits which increases risk of fall: NONE Patient is not on home O2 Completed by: Liliya Turner MA Patient was seen today via Telehealth by agreement and consent in light of the current COVID-19 pandemic. I used the following Telehealth technology: Telephone VV Patient Location: Home. This patient encounter is appropriate and reasonable under the circumstances given the patient's particular presentation at this time. The patient has been advised of the potential risks and limitations of this mode of treatment (including but not limited to the absence of in-person examination) and has agreed to be treated in a remote fashion in spite of them. Any and all of the patient's/patient's family's questions on this issue have been answered and I have made no promises or guarantees to the patient. The patient has also been advised to contact this office for worsening conditions orproblems, and seek emergency medical treatment and/or call 911 if the patient deems either necessary. The patient stated that they are currently in the [facility]. If the patient is a minor, permission has been obtained by the parent or guardian for the patient to receive medical care at this visit.[facility]12-28-2022 [facility] SURGICAL WEIGHT LOSS MANAGEMENT PROGRAM PROGRESS NOTE FOLLOW UP Patient: Marvin Cook Date of : 1985 Service Date: 02/25/2022 DE Visit number: 4 of 6 Pre Program Weight Metrics Date of Initial Consultation:@FLOWLAST(8961)@ Initial Weight: @FLOWLAST([id number])@ Initial BMI: @FLOWLAST([id number])@ [place] Body Weight: @FLOWLAST([id number])@ Excess Body Weight: @FLOWLAST([id number])@ Follow Up Weight Metrics Last Three Weights Including Today's Weight: Wt Readings from Last 3 Encounters: 02/25/22 299 lb 6.4 oz (136 kg) 01/06/22 299 lb 9.6 oz (136 kg) 12/24/21 299 lb (136 kg) Today's BMI: BMI: 51.39 %EBWL: % EBWL: % Weight Chance Since Last Visit: Weight Change: 7.4 lbs Weight Change from Initial DE/SPR Weight: Total Weight Change: Non-Surg Weight on File> lbs Patient has the following question(s): none Falls Risk Assessment Patient doestake medications which affect BP or mental status Patient does not have newly prescribed or changed dosage of medications within past 30 days which affect BP or mental status Patient has not fallen in the past 2 months Patient does notdemonstrate unsteady gait Patient uses the following ambulatory assistive devices: NONE Patient states the presence of the following traits which increases risk of fall: NONE Patient is not on home O2 Completed by: Liliya Turner, [facility]11-30-2022 [facility] SURGICAL WEIGHT LOSS MANAGEMENT PROGRAM PROGRESS NOTE FOLLOW UP Patient: Marvin Cook Date of : 1985 Service Date: 01/28/2022 DE Visit number: 3 of 6 Pre Program Weight Metrics Date of Initial Consultation:@FLOWLAST(8961)@ Initial Weight: @FLOWLAST([id number])@ Initial BMI: @FLOWLAST([id number])@ [place] Body Weight: @FLOWLAST([id number])@ Excess Body Weight: @FLOWLAST([id number])@ Follow Up Weight Metrics Last Three Weights Including Today's Weight: Wt Readings from Last 3 Encounters: 01/06/22 299 lb 9.6 oz (136 kg) 12/24/21 299 lb (136 kg) 11/07/21 297 lb 6.4 oz (135 kg) Today's BMI: BMI: 50.12 %EBWL: % EBWL: % Weight Chance Since Last Visit: Weight Change: 292 lbs Weight Change from Initial DE/SPR Weight: Total Weight Change: Non-Surg Weight on File> lbs Patient has the following question(s): none Falls Risk Assessment Patient doestake medications which affect BP or mental status Patient does not have newly prescribed or changed dosage of medications within past 30 days which affect BP or mental status Patient has not fallen in the past 2 months Patient does notdemonstrate unsteady gait Patient uses the following ambulatory assistive devices: NO Patient states the presence of the following traits which increases risk of fall: NO Patient is not on home O2 Patient was seen today via Telehealth by agreement and consent in light of the current COVID-19 pandemic. I used the following Telehealth technology: Telephone VV Patient Location: Home. This patient encounter is appropriate and reasonable under the circumstances given the patient's particular presentation at this time. The patient has been advised of the potential risks and limitations of this mode of treatment (including but not limited to the absence of in-person examination) and has agreed to be treated in a remote fashion in spite of them. Any and all of the patient's/patient's family's questions on this issue have been answered and I have made no promises or guarantees to the patient. The patient has also been advised to contact this office for worsening conditions orproblems, and seek emergency medical treatment and/or call 911 if the patient deems either necessary. The patient stated that they are currently in the state [facility]. If the patient is a minor, permission has been obtained by the parent or guardian for the patient to receive medical care at this visit. Completed by: Sravanthi Mendez [facility] [id number] Hospital Discharge instructions Patient Education 05/23/2021 14:27:28 3- Heart Cath/PCI groin (11/2017) (CUSTOM) HEART CATHETERIZATION/PCI (groin) Discharge Instructions DIET INSTRUCTIONS Drink plenty of fluids for the next 48 hours to help your kidneys flush the heart cath dye out of your system ACTIVITIES May go up and down stairs CAREFULLY Do not drive car FOR 24 HOURS No heavy lifting GREATER THAN 5 POUNDS or pushing or straining FOR 2 DAYS Someone must stay with you at home after the procedure until the morning. BATHING/SHOWERING May tub bathe in 1 week May shower tomorrow WOUND CARE You will go home with a Dressing over your heart cath site. Keep the dressing on for the next 24 hours and then leave open to air. Some degree of bruising and tenderness is normal around the heart cath site. It will take a while for any bruising to completely resolve. Keep your site clean and dry. You need to report the following to your coat padder: Any draining or oozing from the site Any increased pain or tenderness at the site Any numbness in your leg where the procedure was done Any signs of infection IMPORTANT! CALL 911 FOR ANY BLEEDING OR SWELLING AT THE PROCEDURE SITE If there is any large amount of bleeding, you or someone else need to apply direct pressure to the site (just like the nurse did in the heart lab after your procedure). It is very important that you hold constant pressure. Do not release the pressure to check if the bleeding has stopped. You then need to be transported to the nearest emergency room. WATCH FOR SIGNS OF INFECTION (Usually appears 36-48 hours after surgery) A temperature above 100.5 Redness or swelling Increased pain Foul odor or drainage If you have any questions, please call your doctor at the number listed on your follow up instructions. Follow all instructions given to you by your physician Document Released: 02/15/2006 Document Revised: 02/01/2013 Document Reviewed: 02/16/2014 [facility] Patient Information 2014 [employer]. This information is not intended to replace advicegiven to you by your health care provider. Make sure you discuss any questions you have with your health care provider. 05/23/2021 12:43:45 Moderate Conscious Sedation, Adult, Care After Moderate Conscious Sedation, Adult, Care After These instructions provide you with information about caring for yourself after your procedure. Your health care provider may also give you more specific instructions. Your treatment has been plannedaccording to current medical practices, but problems sometimes occur. Call your health care provider if you have any problems or questions after your procedure. What can I expect after the procedure? After your procedure, it is common: To feel sleepy for several hours. To feel clumsy and have poor balance for several hours. To have poor judgment for several hours. To vomit if you eat too soon. Follow these instructions at home: For at least 24 hours after the procedure: Do not: ?Participate in activities where you could fall or become injured. ?Drive. ?Use heavy machinery. ?Drink alcohol. ?Take sleeping pills or medicines that cause drowsiness. ?Make important decisions or sign legal documents. ?Take care of children on your own. Rest. Eating and drinking Follow the diet recommended by your health care provider. If you vomit: ?Drink water, juice, or soup when you can drink without vomiting. ?Make sure you have little or no nausea before eating solid foods. General instructions Have a responsible adult stay with you until you are awake and alert. Take [id number] and prescription medicines only as told by your health care provider. If you smoke, do not smoke without supervision. Keep all follow-up visits as told by your health care provider. This is important. Contact a health care provider if: You keep feeling nauseous or you keep vomiting. You feel light-headed. You develop a rash. You have a fever. Get help right away if: You have trouble breathing. This information is not intended to replace advice given to you by your health care provider. Make sure you discuss any questions you have with your health care provider. Document Released: 12/06/2013 Document Revised: 01/28/2018 Document Reviewed: 06/06/2016 [employer] Patient Education 2020 [employer]. Follow Up Care 05/13/2021 15:32:08 With:ANAHY TAVAREZ MD Address: [address] [facility] [place] [address]- [phone] When:06/10/2021 14:45:00 [facility] Evaluation + Plan note Future Appointments Appointment Date:06/10/2021 02:45:00 PM Scheduled Provider: Location:[facility] Appointment Type:CV OV Future Scheduled Tests Laboratory* Basic Metabolic Panel 05/13/21 * Complete Blood Count 05/13/21 [facility] Evaluation note* Diagnosis Type 2 diabetes mellitus without complication, without long-term current use of insulin (CMS/HCC) (HCC) Morbid obesity due to excess calories (HCC) GERD without esophagitis Esophageal reflux Pre-operative laboratory examination Pre-procedural laboratory examination History of tobacco use Personal history of tobacco use, presenting hazards to health Encounter for drug screening Morbid (severe) obesity due to excess calories (HCC) documented in this encounter [facility] scoo mobilityEvaluation note* Diagnosis Tachycardia, unspecified Type 2 diabetes mellitus with hyperglycemia (CMS/HCC) (HCC) Morbid (severe) obesity due to excess calories (HCC) documented in this encounter [facility] HealthEvaluation note* Diagnosis Type 2 diabetes mellitus without complication, without long-term current use of insulin (CMS/HCC) (HCC)- Primary Primary hypertension Unspecified essential hypertension Hyperlipidemia, unspecified hyperlipidemia type Morbid obesity with BMI of 50.0-59.9, adult (CMS/HCC) (HCC) Morbid (severe) obesity due to excess calories (HCC) [facility] Diagnosis Type 2 diabetes mellitus without complication, without long-term current use of insulin (CMS/HCC) (HCC) Morbid obesity due to excess calories (HCC) GERD without esophagitis Esophageal reflux Pre-operative laboratory examination Pre-procedural laboratory examination History of tobacco use Personal history of tobacco use, presenting hazards to health Encounter for drug screening Morbid (severe) obesity due to excess calories (HCC) documented in this encounter [facility] HealthEvaluation note* Diagnosis Type 2 diabetes mellitus without complication, without long-term current use of insulin (CMS/HCC) (HCC) Morbid obesity due to excess calories (HCC) GERD without esophagitis Esophageal reflux Pre-operative laboratory examination Pre-procedural laboratory examination History of tobacco use Personal history of tobacco use, presenting hazards to health Encounter for drug screening Morbid (severe) obesity due to excess calories (HCC) [facility] Diagnosis Bilateral calf pain Pain in soft tissues of limb documented in this encounter [facility] HealthEvaluation note* Diagnosis Type 2 diabetes mellitus without complication, without long-term current use of insulin ([facility]) (HCC)- Primary Bilateral calf pain Pain in soft tissues of limb Primary hypertension Unspecified essential hypertension Hyperlipidemia, unspecified hyperlipidemia type Deficiency of multiple nutrient elements Other nutritional deficiency Morbid obesity with BMI of 50.0-59.9, adult (HCC) Oral candidiasis Candidiasis of mouth Bilateral calf pain Pain in soft tissues of limb documented in this encounter [facility] HealthEvaluation note* Diagnosis Deficiency of multiple nutrient elements Other nutritional deficiency Hyperlipidemia, unspecified hyperlipidemia type Type 2 diabetes mellitus with diabetic neuropathy, unspecified whether long-term insulin use (HCC) Primary hypertension Unspecified essential hypertension Morbid obesity with BMI of 45.0-49.9, adult (HCC) documented in this encounter [facility] HealthEvaluation note* Diagnosis Deficiency of multiple nutrient elements Other nutritional deficiency Hyperlipidemia, unspecified hyperlipidemia type Type 2 diabetes mellitus with diabetic neuropathy, unspecified whether long-term insulin use (HCC) Primary hypertension Unspecified essential hypertension Morbid obesity with BMI of 45.0-49.9, adult (HCC) Primary hypertension- Primary Unspecified essential hypertension GERD without esophagitis Esophageal reflux Deficiency of multiple nutrient elements Other nutritional deficiency Type 2 diabetes mellitus without complication, without long-term current use of insulin (CMS/[facility]) (HCC) Hyperlipidemia, unspecified hyperlipidemia type documented in this encounter [facility] HealthEvaluation note* Diagnosis Deficiency of multiple nutrient elements Other nutritional deficiency Hyperlipidemia, unspecified hyperlipidemia type Type 2 diabetes mellitus with diabetic neuropathy, unspecified whether long-term insulin use (HCC) Primary hypertension Unspecified essential hypertension Morbid obesity with BMI of 45.0-49.9, adult (HCC) Deficiency of multiple nutrient elements- Primary Other nutritional deficiency Primary hypertension Unspecified essential hypertension Hyperlipidemia, unspecified hyperlipidemia type Type 2 diabetes mellitus with diabetic neuropathy, unspecified whether long-term insulin use (HCC) GERD without esophagitis Esophageal reflux [facility] Narrative No data available for this section [facility] Summary Purpose Family History No Family History Records FoundNo Family History Records FoundNo Family History Records FoundNo Family History Records FoundNo Family History Records FoundNo Family History Records Found Advance Directives No Advanced Directives Records FoundLatest Code Status on File Code Status Date Activated Date Inactivated Comments Full Code 05/20/2022 3:06 PM 05/21/2022 6:35 PM Code Status History Code Status Date Activated Date Inactivated Comments Full Code 05/20/2022 5:53 AM 05/20/2022 3:06 PM Latest Code Status on File Code Status Date Activated Date Inactivated Comments Full Code 05/20/2022 3:06 PM 05/21/2022 6:35 PM Code Status History Code Status Date Activated Date Inactivated Comments Full Code 05/20/2022 5:53 AM 05/20/2022 3:06 PM Reason for Referral Specialty Diagnoses / Procedures Referred By Contac t Referred To Contact Cardiology Diagnoses Bilateral calf pain Procedures Vascular US lower extremity venous duplex bilateral Emperatriz Beckett NP [address] [place] [address] Referral ID Status Reason Start Date Expiration Date Visits Requested Visits Authorized [id number] Pending Review Perform Procedure 05/25/2022 11/21/2022 1 1 Additional Source Comments INFORMATION SOURCE (unrecogn ized section and content) DATE CREATED AUTHOR AUTHOR'S ORGANIZ ATION 08/29/2020 [facility] DATE CREATED AUTHOR AUTHOR'S ORGANIZ ATION 12/25/2021 [facility] DATE CREATED AUTHOR AUTHOR'S ORGANIZ ATION 10/28/2022 [facility] DATE CREATED AUTHOR AUTHOR'S ORGANIZ ATION 01/15/2023 [facility] ([place]) DATE CREATED AUTHOR AUTHOR'S ORGANIZ ATION 03/22/2023 Rishi Ricketts [place] Care Teams (unrecognized sec tion and content) Senior Interactive Developer Relationship Specialty Start Date End Date Peyton Barba APRN - GO GO DANCER [address] [place], [place] [phone] PCP - General 08/27/21 Senior Interactive Developer Relationship Specialty Start Date End Date Peyton Barba APRN - GO GO DANCER [address] [place], [place] [phone] PCP - General 08/27/21 Senior Interactive Developer Relationship Specialty Start Date End Date Peyton Barba [address] [place] [address] PCP - General 08/27/21 Maritza Flaherty, RN Registered Nurse 05/05/22 Senior Interactive Developer Relationship Specialty Start Date End Date Peyton Barba [address] [place] [address] PCP - General 08/27/21 Maritza Flaherty, RN Registered Nurse 05/05/22 Senior Interactive Developer Relationship Specialty Start Date End Date Peyton Barba [address] [place] [address] PCP - General 08/27/21 Senior Interactive Developer Relationship Specialty Start Date End Date Peyton Barba [address] [place] [address] PCP - General 08/27/21 Maritza Flaherty, RN Registered Nurse 05/05/22 Senior Interactive Developer Relationship Specialty Start Date End Date Peyton Barba [address] [place] [address] PCP - General 08/27/21 Maritza Flaherty, RN Registered Nurse 05/05/22 Senior Interactive Developer Relationship Specialty Start Date End Date Peyton Barba [address] [place] [address] PCP - General 08/27/21 Maritza Flaherty, RN Registered Nurse 05/05/22 Senior Interactive Developer Relationship Specialty Start Date End Date Peyton Barba [address] [place] [address] PCP - General 08/27/21 Maritza Flaherty, RN Registered Nurse 05/05/22 Saman Rivas, [address] [place] [address] Surgeon General Surgery 05/20/22 Senior Interactive Developer Relationship Specialty Start Date End Date Peyton Barba [address] [facility] [address] [place] [address] PCP - General 08/27/21 Maritza Flaherty, RN Registered Nurse 05/05/22 Saman Rivas DO [address] [place], [place] [phone] Surgeon General Surgery 05/20/22 Senior Interactive Developer Relationship Specialty Start Date End Date Peyton Barba [address] [facility] [address] [place] [address] PCP - General 08/27/21 Maritza Flaherty, RN Registered Nurse 05/05/22 Saman Rivas [address] [place] [address] Surgeon General Surgery 05/20/22 Senior Interactive Developer Relationship Specialty Start Date End Date Peyton Barba [address] [facility] [address] [place] [phone] PCP - General 08/27/21 Maritza Flaherty, RN Registered Nurse 05/05/22 Saman Rivas DO [address] [place] [address] Surgeon General Surgery 05/20/22 Reason for Visit (unrecogniz ed section and content) Reason Comments Anticoagulation Reason Comments Weight Management FPOV Specialty Diagnoses / Procedures Referred By Contac t Referred To Contact Cardiology Diagnoses Bilateral calf pain Procedures Vascular US lower extremity venous duplex bilateral Emperatriz Beckett NP [address] [place] [address] Referral ID Status Reason Start Date Expiration Date Visits Requested Visits Authorized [id number] Pending Review Perform Procedure 05/25/2022 11/21/2022 1 1 Reason Comments Bariatrics Post Op Follow-up 1W Reason Comments Bariatrics Post Op Follow-up 1M FOR RECORDS PERTAINING TO PATIENTS WHO ARE OR HAVE BEEN ENROLLED IN A CHEMICAL DEPENDENCY/SUBSTANCEABUSE PROGRAM, SOME INFORMATION MAY BE OMITTED. This clinical summary was aggregated from multiple sources. Caution should be exercised in using it in the provision of clinical care. This summary normalizes information from multiple sources, and as a consequence, information in this document may materially change the coding, format and clinical context of patient data. In addition, data may be omitted in some cases. CLINICAL DECISIONS SHOULD BE BASED ON THE PRIMARY CLINICAL RECORDS. [facility] [employer] [facility]. provides no warranty or guarantee of the accuracy or completeness of information in this document.
--- NOTE | 2023-03-24 08:56 | NEURO ---
NCS and/or EMG Patient Report Ordering Doctor: Lalit Smith DATE OF SERVICE: 03/24/23 Clinical Summary: 37 year old female patient presenting with symptoms of numbness, tingling, pain, and weakness in both hands. This EMG/NCS was performed to evaluate for right/left carpal tunnel syndrome. Nerve Conduction Studies Summary: The median-D2 SNAP distal latency was prolonged with reduced amplitude on the right side. The median-APB CMAP distal latency was prolonged with reduced amplitude on the right side. The median motor conduction velocity was reduced in the forearm segment bilaterally. Needle Examination Summary: Needle examination demonstrated that there was a higher proportion of motor unit action potentials with reduced recruitment, increased amplitude, increased duration, and polyphasia in the right abductor pollicis brevis muscle. Impression: This is an abnormal study. There is electrodiagnostic evidence of the following - 1) Severe, right median mononeuropathy at the wrist (carpal tunnel syndrome), with secondary motor fiber axonal loss 2) Moderate, left median mononeuropathy at the wrist (carpal tunnel syndrome), with motor fiber demyelination Multi Select Codes Neurology Neurology Interp Codes: 98268-74 Musc test done w/n test comp (interp) (2) and 21169-27 Nrv cndj test 9-10 studies (interp)
== END | disposition home or self-care (01) ==
PROVIDERS: PCP Nurse Practitioner Family; Referring Provider Orthopaedic Surgery Sports Medicine; Visit Provider Orthopaedic Surgery Sports Medicine
DX: G56.03 Carpal tunnel syndrome, bilateral upper limbs (principal)
CPT/HCPCS: 95886; 95911

== ENCOUNTER 2023-05-05 09:47 | Day surgery (SDC) | payer MEDICAID, SELFPAY ==
[2023-05-05] VITALS (7 sets, daily range): BP systolic 83–124; BP diastolic 54–90; PULSE 52–80; RESP 16; TEMP 36.1–36.4; O2SAT 93–100; BMI 41.6
[2023-05-05] MEDS: Lactated Ringers 1,000 ML 15 ML IV (10:15)
[2023-05-05 10:56] LABS: Bedside Glucose 91 mg/dL (74-106)
[2023-05-05 11:01] LABS: Internal QC Validated? YES +Cl - CLEAR BKGD; Pregnancy, Urine Negative Negative
[2023-05-05 11:02] LABS: Record Kit Lot#,Urine Preg HCG0000718086
--- NOTE | 2023-05-05 11:07 | HP.PCM_ITS ---
HPI - General HPI Narrative MARVIN TAVERAS, is a 37 F who presents for bilateral ECTRs. no changes to h and p. wrists marked, rab and post op instructions given. ok to proceed. MR#: [id number] Acct: [id number] Name: MARVIN TAVERAS Rep #: [id number] : 1985 Provider: Dr. Lalit Smith MD Age/Sex: 37/F Location: [facility] [place] Status: Signed Intake Vital Signs 03/15/2414:22 Height 5 ft 4 in Weight: 256 lb 6 oz BMI 43.9 Intake Visit Reasons: BL HANDS Is patient in pain?: Yes (pain all the time) Pain scale (1-10): 6 Allergies acetaminophen [From Midol] Allergy (Verified 03/29/23 14:52) Othercodeine [From Tylenol-Codeine #3] Allergy (Verified 03/29/23 14:52) Rashketorolac [From Toradol] Allergy (Verified 03/29/23 14:52) Hivespamabrom [From Midol] Allergy (Verified 03/29/23 14:52) Othermorphine Adverse Reaction (Verified 03/29/23 14:52) Other Medications aspirin 81 mg chewable tablet 1 tab PO DAILY 03/15/23 [History Confirmed 03/29/23] atorvastatin 80 mg tablet mg PO 03/15/23 [History Confirmed 03/29/23] biotin 1 mg capsule 1 mg PO DAILY 03/15/23 [History Confirmed 03/29/23] blood sugar diagnostic (Optinel SystemsTouch Ultra Test strips) #10 ea 03/15/23 [History Confirmed 03/29/23] calcium carbonate 600 mg-vitamin D3 5 mcg (200 unit) tablet tab PO 03/15/23 [History Confirmed 03/29/23] doxepin 50 mg capsule mg PO 03/15/23 [History Confirmed 03/29/23] ezetimibe 10 mg tablet mg PO 03/15/23 [History Confirmed 03/29/23] fenofibrate nanocrystallized 145 mg tablet mg PO 03/15/23 [History Confirmed 03/29/23] fentanyl 25 mcg/hr transdermal patch 1 patch transdermal Q72H 03/15/23 [History Confirmed 03/29/23] flash glucose sensor (FreeStyle Chapin 2 Sensor kit) #1 ea 03/15/23 [History Confirmed 03/29/23] lancets 30 gauge (OneTouch Delica Plus Lancet) #100 ea 03/15/23 [History Confirmed 03/29/23] metformin 500 mg tablet mg PO 03/15/23 [History Confirmed 03/29/23] metoprolol tartrate 50 mg tablet mg PO 03/15/23 [History Confirmed 03/29/23] nitrofurantoin monohydrate/macrocrystals 100 mg capsule 100 mg PO 03/15/23 [History Confirmed 03/29/23] omeprazole 20 mg capsule,delayed release mg PO 03/15/23 [History Confirmed 03/29/23] pregabalin 100 mg capsule mg PO 03/15/23 [History Confirmed 03/29/23] ramipril 2.5 mg capsule 2.5 mg PO DAILY 03/15/23 [History Confirmed 03/29/23] sulfamethoxazole 800 mg-trimethoprim 160 mg tablet tab PO 03/15/23 [History Confirmed 03/29/23] ticagrelor 60 mg tablet (Brilinta) mg PO 03/15/23 [History Confirmed 03/29/23] vitamin B complex (B Complex-Vitamin B12 tablet) tab PO 03/15/23 [History Confirmed 03/29/23] zolpidem 5 mg tablet mg PO 03/15/23 [History Confirmed 03/29/23] PFSH Medical History Bilateral carpal tunnel syndrome Diabetes Heart disease Hypertension Well-controlled hypertension Surgical History H/O bariatric surgery H/O section H/O heart artery stent History of cholecystectomy History of hernia repair Family History Mother Hypertension Cancer ArthritisGrandmother Hypertension ArthritisFather Myocardial infarction Social History Smoking Status: Current every day smoker tobacco type: cigarettes alcohol intake: never HPI BL HANDS Details: This documentation accurately reflects the service provided and the decisions made by me, Dr. Lalit Smith MD 03/29/23 1028. Part of today?s visit was documented by [ ], acting as scribe. MARVIN TAVERAS is a 37 year old F here today for FU bilat Ncs/emg for carpal tunnel syndrome. hands still going numb. a month ago 7.9 hg a1c. Ortho Exam General General: Yes no acute distress Neurologic: Yes alert and Yes oriented x3 Psychologic: Yes reasonable and appropriate Right Wrist/Hand Skin/Wound: Yes CDI, No Swelling, No Ecchymosis, Yes nail intact and Yes capillary refill normal Right Wrist: Yes ROM-Extension 0-60, ROM-Flexion 0-80, ROM-Pronation 0-80, ROM- Supination 0-90, Durken's Test, Phalen's and Thenar Atrophy; No Hypothenar Atrophy Motor: EPL: 5, FDP-2: 5, 1st Dorsal Interosseous: 5 and APB: 4 Sensation: Radial: I, Ulnar: I and Median: D Left Wrist/Hand Skin/Wound: Yes CDI, No Swelling, No Ecchymosis, Yes nail intact, Yes capillary refill normal and No erythema Left Wrist: Yes ROM-Extension 0-60, Yes ROM-Flexion 0-80, Yes ROM-Pronation 0- 80, Yes ROM-Supination 0-90, Yes Durken's Test, Yes Tinel's, Yes Phalen's and Yes Thenar Atrophy; No Hypothenar Atrophy Motor: EPL: 5, FDP-2: 5, 1st Dorsal Interosseous: 5 and APB: 4 Sensation: Radial: I, Ulnar: I and Median: D WRIST: neg tinels at the elbows. Supplemental Info [facility] [address] [place] [address] MR#: [id number] Acct: [id number] Name: MARVIN TAVERAS Rep #: [id number] : 1985 37 From: Hemalatha Patel MD Referring Dr: Lalit Smith MD Status: REG CLI Location: [facility] Date: 03/24/23 Sex: F C NCS and/or EMG Patient Report Ordering Doctor: Lalit Smith DATE OF SERVICE: 03/24/23 Clinical Summary: 37 year old female patient presenting with symptoms of numbness, tingling, pain, and weakness in both hands. This EMG/NCS was performed to evaluate for right/left carpal tunnel syndrome. Nerve Conduction Studies Summary: The median-D2 SNAP distal latency was prolonged with reduced amplitude on the right side. The median-APB CMAP distal latency was prolonged with reduced amplitude on the right side. The median motor conduction velocity was reduced in the forearm segment bilaterally. Needle Examination Summary: Needle examination demonstrated that there was a higher proportion of motor unit action potentials with reduced recruitment, increased amplitude, increased duration, and polyphasia in the right abductor pollicis brevis muscle. Impression: This is an abnormal study. There is electrodiagnostic evidence of the following - 1) Severe, right median mononeuropathy at the wrist (carpal tunnel syndrome), with secondary motor fiber axonal loss 2) Moderate, left median mononeuropathy at the wrist (carpal tunnel syndrome), with motor fiber demyelination Coding Level of Care Code Off vis,est,level 4 Diagnoses Bilateral carpal tunnel syndrome G56.03 Assessment and Plan Assessment and Plan (1) Bilateral carpal tunnel syndrome: Status: Acute Plan: 37 F with FU nerve studies confirming bilateral carpal tunnel syndrome. We again discussed the diagnosis pros and cons of different treatment options. The patient would like to go ahead with bilateral endoscopic carpal tunnel release. Discussed the risks which would be a little higher in her case given the blood thinner past history of cardiac stenting as well as diabetes slightly elevated hemoglobin A1c at 7.9 and smoking 10 cigarettes a day. She understands risks and wishes to go ahead with bilateral endoscopic carpal tunnel release, will get pre op cardiac clearance. 2 weeks to heal incision and 6 weeks before heavy lifting or gripping. Pros and cons risks and benefits were discussed with the patient including but not limited to infection, pain, stiffness, bleeding, damage to surrounding structures, neurovascular injury, recurrence or retear, failure or wear of hardware or fixation, instability, fracture, deep vein thrombosis and pulmonary embolism, anesthetic risks, , patient dissatisfaction, need for further surgery and other risks. Patient understood and wished to proceed with surgery, and signed the informed consent documentation. [facility] Medical History (Updated 04/21/23 @ 10:34 by Kayleigh Holder) Anxiety Arthritis Asthma Bilateral carpal tunnel syndrome CAD (coronary artery disease) Cardiology follow-up encounter Chronic UTI CPAP (continuous positive airway pressure) dependence Depression Diabetes Heart disease High cholesterol History of edema History of heart attack Hypertension Leg cramps MRSA infection Restless legs Sleep apnea Smoker Well-controlled hypertension Home Medications aspirin 81 mg chewable tablet 1 tab PO DAILY 03/15/23 [History Last Taken 04/29/23] atorvastatin 80 mg tablet 80 mg PO DAILY 03/15/23 [History Last Taken Unknown] biotin 1 mg capsule 1 mg PO DAILY 03/15/23 [History Last Taken Unknown] blood sugar diagnostic (Ebixuch Ultra Test strips) #10 ea 03/15/23 [History Last Taken Unknown] calcium carbonate 600 mg-vitamin D3 5 mcg (200 unit) tablet 1 tab PO DAILY 03/15/23 [History Last Taken Unknown] doxepin 50 mg capsule 50 mg PO QHS 03/15/23 [History Last Taken Unknown] ezetimibe 10 mg tablet 10 mg PO DAILY 03/15/23 [History Last Taken Unknown] fenofibrate nanocrystallized 145 mg tablet 145 mg PO DAILY 03/15/23 [History Last Taken Unknown] fentanyl 25 mcg/hr transdermal patch 1 patch transdermal Q72H 03/15/23 [History Last Taken Unknown] flash glucose sensor (A.P [employer] Silk Chapin 2 Sensor kit) #1 ea 03/15/23 [History Last Taken Unknown] lancets 30 gauge (Optinel SystemsTouch Delica Plus Lancet) #100 ea 03/15/23 [History Last Taken Unknown] metformin 500 mg tablet 500 mg PO BID 03/15/23 [History Last Taken Unknown] metoprolol tartrate 50 mg tablet 50 mg PO BID 03/15/23 [History Last Taken 05/05/23] omeprazole 20 mg capsule,delayed release 20 mg PO DAILY 03/15/23 [History Last Taken 05/05/23] pregabalin 100 mg capsule 100 mg PO BID 03/15/23 [History Last Taken Unknown] ramipril 2.5 mg capsule 2.5 mg PO DAILY 03/15/23 [History Last Taken Unknown] ticagrelor 60 mg tablet (Brilinta) 60 mg PO BID 03/15/23 [History Last Taken 05/01/23] vitamin B complex (B Complex-Vitamin B12 tablet) 1 tab PO DAILY 03/15/23 [History Last Taken Unknown] zolpidem 5 mg tablet 5 mg PO QHS 03/15/23 [History Last Taken Unknown] cephalexin 500 mg capsule 500 mg PO Q12H 04/21/23 [History Last Taken Unknown] Allergy/AdvReac Type Severity Reaction Status Date / Time codeine Allergy Rash Verified 05/05/23 10:13 [From Tylenol-Codeine #3] ketorolac [From Toradol] Allergy Hives Verified 05/05/23 10:13 pamabrom [From Midol] Allergy Other Verified 05/05/23 10:13 morphine AdvReac Other Verified 05/05/23 10:13 Family History Mother Hypertension Cancer Arthritis Grandmother Hypertension Arthritis Father Myocardial infarction Surgical History (Updated 04/21/23 @ 10:34 by Kayleigh Holder) H/O bariatric surgery H/O section H/O heart artery stent History of cardiac catheterization History of cholecystectomy History of hernia repair Social History Smoking Status: Current every day smoker tobacco type: cigarettes alcohol intake: never Vital Signs Vital Signs Vital Signs: 05/05/23 10:14 05/05/23 10:14 Temperature 97.6 F L Temperature Source Temporal Pulse Rate 80 Respiratory Rate 16 Respiratory Pattern Normal Blood Pressure 103/65 Blood Pressure Mean 77 Blood Pressure Source Monitor Blood Pressure Position Semi-Fowlers Blood Pressure Location Left Arm Pulse Ox 96 Oxygen Delivery Method Room Air Weight Weight: 242 lb 8.136 oz Body Mass Index (BMI) 41.6 Results Lab / Micro Data Labs: Laboratory Results - last 24 hr 05/05/23 10:23: Urine Test Negative 05/05/23 10:25: POC Glucose 91
[2023-05-05] MEDS: Cefazolin 2 GM in 0.9% Normal Saline (100mL Bag) 100 ML IV (11:29)
[2023-05-05] MEDS: Bupivacaine 0.25% 30 ML Vial (11:53)
--- NOTE | 2023-05-05 12:21 | OP.PCM_ITS ---
Problems Associated Problem List Diagnoses (1) Bilateral carpal tunnel syndrome: Report of Operation Date of Procedure: 05/05/23 Pre-Operative Diagnosis: Bilateral carpal tunnel syndrome Post-Operative Diagnosis: same Surgery/Procedure Performed:: Bilateral endoscopic carpal tunnel release Surgeon: Lalit Smith Type of Anesthesia: Local Anesthesiologist: Gray Grover Estimated Blood Loss (mL): 10 Description of Procedure: Patient was brought to the operating room theater.? The patient was administered 2g iv ancef prior to the start of the procedure.? Placed supine on the operating room table.? Anesthesia induced.? SCDs on the legs.? Tourniquet applied to both upper operative extremity, appropriately padded. Arm table used. Operative extremity prepped and draped in the usual sterile fashion with chlorhexidine- based prep solution allowing over 3 minutes drying time prior to draping.? Preoperative timeout performed to confirm the site patient and the surgery, bilateral endoscopic carpal tunnel release. I did the same procedure on both sides. I used the Arthex center line endoscopic carpal tunnel kit / technique. 4 cc 0.25% bupivicaine at incision site. ? Tourniquet up at 250mmg. I made a transverse 2 cm incision in line with the? transverse wrist crease.? This was in line with the fourth digit.? I carried the dissection down through skin and subcutaneous tissue achieved meticulous hemostasis. Just ulnar to palmaris tendon.? I incised the antebrachial fascia.? I passed sequential dilators into the carpal tunnel along the radial border of the Guyon's canal aiming for the fourth digit with the hand in extension. I used a synovial elevator to identify the transverse fibers of the transverse carpal tunnel ligament.? Passed the scope into the carpal tunnel. Once I had identified the full proximal and distal extent of the ligament I fully released the ligament under direct visualization by deploying the blade and slowly withdrawing the scope made sequential passes until I no longer felt tension as well as the entire extent of the ligament was released under direct vis ualization.? Sounded the tunnel with croft tenotomy scissors, complete release, no bands. Pictures taken and saved before and after release. Tourniquet let down. Wound thoroughly irrigated.?Meticulous hemostasis achieved.? Incisions closed with 3-0 monocryl for the skin.?Skin was cleaned and dried. steri strips, adaptic and 4x4 gauze and minda wrap. Patient woken up,? transferred off the operating room table and taken to postanesthetic care unit in stable condition. All sponge needle instrument counts were correct no complications.? Plan for the patient to be discharged home according to day surgery criteria when they are comfortable. Follow-up in the office in 2 days time. Gentle ROM hand and elbow no heavy lifting. cpt 02600 x2 Complications none Admit VTE Documentation VTE Present on Admission: No VTE Mechan Device Prophylaxis: SCD's VTE Pharm Prophylaxis ordered?: No Reason prophylaxis not ordered:: Treatment Not Indicated Procedures Musculoskeletal 20xxx-29xxx: Other Procedure See Report
--- NOTE | 2023-05-05 12:25 | EX.PCM.DISCH ---
Discharge Instructions Diet Discharge Diet: No restrictions Activity Lifting Restrictions: ok for hand and wrist use, no heavy lifting or gripping Keep extremity elevated above heart level: Operative Extremity Dressing / Incision Call your doctor if your incision/area has: Continuous Slow Oozing, Sudden Increased Bleeding, Increased Pain/ Swelling, Increased Redness, Foul Smelling Discharge and Swelling at the incision site Remove Dressing in: leave in place till F/U Cleanse incision/area with: Do not get Incision Wet Follow Up Care Please Follow Up With: Lalit Smith MD When: 2 days Test Results: Test results from this visit will be discussed in further detail at your follow-up appointment, if applicable. Discharge Plan Admission Attending Provider: Lalit Smith Primary Care Provider: Milagros Garcia NP Discharge Orders/Prescriptions Prescriptions: No Action metoprolol tartrate 50 mg tablet 50 mg PO BID (DME) FreeStyle Chapin 2 Sensor Kit See Rx Instructions .ROUTE .MEDSUPPLY Qty: 1 Rx Instructions: As directed zolpidem 5 mg tablet 5 mg PO QHS Patient Comments: TAKE 1 TABLET BY MOUTH AT BEDTIME NEEDED metformin 500 mg tablet 500 mg PO BID Patient Comments: TAKE 1 TABLET BY MOUTH TWICE DAILY fentanyl 25 mcg/hr patch 72 hour 1 patch transdermal Q72H Patient Comments: apply 1 patch every 72 hours fenofibrate nanocrystallized 145 mg tablet 145 mg PO DAILY omeprazole 20 mg capsule,delayed release(DR/EC) 20 mg PO DAILY aspirin 81 mg tablet,chewable 1 tab PO DAILY calcium carbonate-vitamin D3 600 mg-5 mcg (200 unit) tablet 1 tab PO DAILY Patient Comments: TAKE 1 TABLET BY MOUTH THREE TIMES DAILY atorvastatin 80 mg tablet 80 mg PO DAILY Patient Comments: TAKE 1 TABLET BY MOUTH AT BEDTIME doxepin 50 mg capsule 50 mg PO QHS Patient Comments: TAKE 1 CAPSULE BY MOUTH AT BEDTIME (DME) OneTouch Ultra Test Strip See Rx Instructions .ROUTE .MEDSUPPLY Qty: 10 Patient Comments: USE 1 STRIP TO CHECK GLUCOSE TWICE DAILY Rx Instructions: As directed ramipril 2.5 mg capsule 2.5 mg PO DAILY Patient Comments: TAKE 1 CAPSULE BY MOUTH ONCE DAILY pregabalin 100 mg capsule 100 mg PO BID Patient Comments: TAKE 1 CAPSULE BY MOUTH THREE TIMES DAILY ezetimibe 10 mg tablet 10 mg PO DAILY Patient Comments: TAKE 1 TABLET BY MOUTH ONCE DAILY Brilinta 60 mg tablet 60 mg PO BID Patient Comments: TAKE 1 TABLET BY MOUTH TWICE DAILY (DME) lancets [OneTouch Delica Plus Lancet] 30 gauge misc See Rx Instructions .ROUTE .MEDSUPPLY Qty: 100 Rx Instructions: As directed vitamin B complex [B Complex-Vitamin B12] Tablet 1 tab PO DAILY biotin 1 mg capsule 1 mg PO DAILY cephalexin 500 mg capsule 500 mg PO Q12H Referrals / Follow Up: Milagros Garcia NP, [facility] [employer] [facility] [Primary Care Provider] - Lalit Smith MD [Med Staff - Active Staff] - Disposition Disposition (needs filled in before D/C Order can be placed): Home, Self Care
[2023-05-05] MEDS: Oxycodone/Apap 5/325 Tablet PO (13:22)
== END 2023-05-05 13:58 | disposition home or self-care (01) ==
LOC: SDC 09:47 → AC 09:49
PROVIDERS: Anesthesiology; PCP Nurse Practitioner Family; Referring Provider Orthopaedic Surgery Sports Medicine; Visit Provider Orthopaedic Surgery Sports Medicine
PROC: (CPT 64721; principal; 2023-05-05 11:05)
DX: G56.03 Carpal tunnel syndrome, bilateral upper limbs (principal); E11.9 Type 2 diabetes mellitus without complications; Z79.84 Long term (current) use of oral hypoglycemic drugs; Z79.82 Long term (current) use of aspirin; E78.00 Pure hypercholesterolemia, unspecified; I10 Essential (primary) hypertension; I25.10 Atherosclerotic heart disease of native coronary artery without angina pectoris; Z79.899 Other long term (current) drug therapy; F17.210 Nicotine dependence, cigarettes, uncomplicated; Z79.02 Long term (current) use of antithrombotics/antiplatelets; J45.909 Unspecified asthma, uncomplicated
CPT/HCPCS: 64721; 01810; 81025; 82962; J7120; J2405